=== PATIENT | female | born 1970 | race Caucasian/White ===

== ENCOUNTER 2017-07-14 13:03 | Observation (INO) | payer OTHER, SELFPAY ==
[2017-07-14] VITALS (7 sets, daily range): BP systolic 115–136; BP diastolic 82–94; PULSE 81–100; RESP 16–18; TEMP 36.6–36.8; O2SAT 97–100; BMI 28.1; BMI 27.9
--- NOTE | 2017-07-14 15:07 | EKG12_ITS ---
Test Reason : SOB Blood Pressure : / mmHG Vent. Rate : 081 BPM Atrial Rate : 081 BPM P-R Int : 150 ms QRS Dur : 080 ms QT Int : 376 ms P-R-T Axes : 058 049 046 degrees QTc Int : 436 ms Normal sinus rhythm Normal ECG Confirmed by JAMAR BANKS MD ([id number]), supervising editor news reel SUGAR PELAEZ ([id number]) on 07/17/2017 1:59:32 PM Referred By: CONSUELO Confirmed By:JAMAR BANKS MD
--- NOTE | 2017-07-14 15:10 | RAD_ITS ---
STUDY: X-RAY CHEST REASON FOR EXAM: Female, 47 years old. Chest pain. TECHNIQUE: Single AP portable view of the chest. COMPARISON: None. FINDINGS: Telemetry wires overlie the chest. The lungs are clear and expanded. There is no demonstrated pleural abnormality. Normal size heart. Normal mediastinum and kelly. Normal visualized pulmonary arteries. Normal visualized aortic arch and descending thoracic aorta. Normal visualized thoracic spine. Normal visualized ribs, clavicles, and shoulders. There is no demonstrated abnormality of the visualized soft tissue structures of the upper abdomen. RAD/Chest 1 View (Portable) IMPRESSION: Normal x-ray examination of the chest. Electronically Signed: Lalito Greer DO at 15:29 EDT Tel [phone], Service support ,
--- NOTE | 2017-07-14 15:11 | NURSING ---
NO OLD EKGS
--- NOTE | 2017-07-14 15:12 | ED.DCSUM_ITS ---
- ER Visit Summary Date of Service: 07/14/17 Chief Complaint: Sick History of Present Illness: The patient is a 47 F who has been feeling unwell for about 3 weeks. She called her PCP who could not see her and she was referred to urgent care. Urgent care referred her to this emergency department. The patient has had cold symptoms which have progressed into a dry cough, tiredness, and dizziness. She has occasionally have some chest pressure. Worse with ambulating. No history of heart or lung disease. No history of PE or DVT. No fevers or sputum currently. Physical Examination: Afebrile and vital signs unremarkable except for a heart rate of 100. The patient is sitting comfortably in no acute distress. Skin appears normal. HEENT exam unremarkable. Heart regular. Lungs clear. Calf soft and supple. Test Results: We will check EKG, labs, chest x-ray. Emergency Department Course and Treatment: Patient was placed on a monitor. She declined pain medication. CBC and BMP unremarkable. Troponin normal. D-dimer was performed because the patient was slightly tachycardic. This was slightly elevated. CT was ordered. EKG showed sinus rhythm at a rate of 81. Chest x-ray was unremarkable. Patient underwent CTA. Initial read was negative. The technicians thought they saw a small segmental PE. The radiologist reviewed the CT and did identify a small PE in the right lower lobe. Patient has remained hemodynamically stable. I did consider outpatient therapy , but because she is having some chest pain and dizziness, I did feel it was appropriate to observe her at least while she initiates treatment. She has no risks for bleeding. She was treated with a dose of Lovenox in the ED. I spoke with the hospitalist who will admit. Treatment Plan: Above Disposition: Admission Impression: 1. Pulmonary embolism This note was generated with [employer] dictation software. It may contain incorrect words, spelling, and punctuation that were not noted in review of the chart prior to signing ED Disposition - Plan for ED Patient: Chief Complaint: Shortness of Breath Referrals: Ben Lott MD [Primary Care Provider] -
[2017-07-14] MEDS: 0.9% Normal Saline 1,000 ML 1000 ML IV (15:21)
[2017-07-14 15:28] LABS: Absolute Lymphocyte Count 1.58 X10^3/ul (0.83-4.51); Absolute Neutrophil Count 6.3 X10^3/uL (2.0-7.7); Basophil# 0.03 X10^3/uL; Basophil% 0.4 % (0-1); Eosinophil# 0.11 X10^3/uL; Eosinophils% 1.3 % (0-5); Hemoglobin 13.4 g/dl (12.0-15.0); Lymphocyte # 1.58 X10^3/ul (4.0); Lymphocyte % 18.5 % (19-41); Mean Corp Hgb Conc 34.4 g/gl (32-36); Mean Corpuscular Hgb 31.3 pg (27.0-32.0); Mean Corpuscular Volume 91.1 fL (81-99); Mean Platelet Vol. 9.3 fl (6.2-12.0); Monocyte# 0.49 X10^3/uL; Monocyte% 5.7 % (0-10); Neutrophil # 6.31 X10^3/uL (2.7-7.7); POSITIVE COUNT NO; POSITIVE DIFFERENTIAL NO; POSITIVE MORPHOLOGY NO; Platelet Count 229 K/mm3 (150-450); RBC Distribution Width CV 12.8 % (11.6-14.6); RBC Distribution Width SD 42.3 fl (35.1-43.9); Red Blood Count 4.28 M/mm3 (4.2-5.4); White Blood Count 8.5 K/mm3 (4.4-11.0)
[2017-07-14 15:46] LABS: Anion Gap 7 (5-15); BUN 11 mg/dL (7-18); BUN/Creat Ratio 17.5 RATIO (10-20); Calcium,Total 8.4 mg/dL (8.5-10.1); Chloride 104 mmol/L (98-107); Creatinine, Serum 0.63 mg/dL (0.55-1.02); EST Glomerular Filtration Rate 109 mL/min (>60); Est Glom Filt Rate - Afr Amer 132 mL/min (>60); Estimated Creatinine Clearance 101.47 ml/min; Glucose 92 mg/dL (74-106); Potassium 3.9 mmol/L (3.5-5.1); Sodium Level 140 mmol/L (136-145)
[2017-07-14 15:49] LABS: D-Dimer Quantitative (DVT/PE) 0.52 FEU/ug/m (0.27-0.49)
--- NOTE | 2017-07-14 15:50 | CT_ITS ---
STUDY: CTA CHEST REASON FOR EXAM: Female, 47 years old. Dizziness. Shortness of breath. RADIATION DOSAGE (If Supplied By Facility): CTDIvol = ( 9.68 ) mGy, DLP = ( 431.66 ) mGycm TECHNIQUE: The examination was performed with the intravenous administration of 75ml ml of Isovue 370 contrast material. Post-processing of the angiographic images was performed, with multiplanar reformation and 3D reconstruction. Individualized dose optimization techniques were used for this CT. COMPARISON: July 14, 2017. FINDINGS: Normal enhancement of the main pulmonary artery and right and left pulmonary arteries. Normal enhancement of the bilateral peripheral pulmonary arteries. There is no demonstrated pulmonary embolism. Normal thoracic aorta and visualized great vessels. There is no demonstrated aortic dissection. Normal heart and pericardium. Normal mediastinum. Normal hilar regions. Normal visualized trachea and bronchi. The lungs are well expanded. Normal pulmonary parenchyma. Normal pleura. Normal chest wall structures. Normal osseous structures. Small hiatal hernia. The abdomen is otherwise unremarkable. There is evidence of cholecystectomy. CT/CTA Chest W/WO Contrast IMPRESSION: 1. Normal CTA chest examination, without a demonstrated pulmonary embolism or arterial dissection. 2. Small hiatal hernia. Electronically Signed: Lalito Greer DO at 16:36 EDT Tel [phone], Service support ,
[2017-07-14] MEDS: Enoxaparin 80 MG/0.8 ML Syringe SC (18:03)
--- NOTE | 2017-07-14 20:35 | HP.PCM_ITS ---
Problem List (1) Acute segmental right lower lobe PE Status: Acute (2) Flu-like symptoms Status: Acute History of Present Illness Date of Admission: 07/14/17 Chief Complaint: Flulike symptoms for 3 weeks The patient is a 47 year old F with no significant past medical history was sent to ER from urgent care for cough, dizziness, lightheadedness and generalized not feeling well for 3 weeks. Patient complain of dry cough and tiredness. Patient also said she felt chest pressure over midsternal area intermittently, someone sitting on the chest; unrelated to work associated with dizziness. Initially, patient went to PCP from where she was sent to urgent care where she was found tachycardic and then sent to ER. In the ED, d-dimer was positive and therefore CT PA was done which reported as small nonobstructing pulmonary emboli in peripheral vessels to lateral basal segment of right lower lobe. Patient does not have history of DVT or PE and no family history of hypercoagulable disorder in first-degree immediate family members. Patient was given Lovenox in ER and further admitted. [] Past Medical History Allergies codeine Adverse Reaction (Verified 07/14/17 13:08) Unknown Home Medications: Ambulatory Orders Medication Instructions Recorded NK [NK] 07/14/17 Smoking Status: Former smoker Tobacco Use: Cigarettes - *Family History Paternal History Items: No pertinent history Review of Systems Constitutional: Denies: Chills, Fever, Weight Change HEENT: Denies: Head Aches, Sinus Congestion, Sinus Drainage Cardiovascular: Reports: Chest Pain. Denies: Palpitations Respiratory: Reports: Cough. Denies: Shortness of breath at rest, Sputum production Gastrointestinal: Denies: Abdominal Pain, Nausea, Vomiting Genitourinary: Denies: Dysuria Musculoskeletal: Denies: Joint Pain, Joint Tenderness Skin: Denies: Rash, Wounds Neurological: Denies: Numbness, Tingling, Focal weakness Psychiatric: Denies: Anxiety, Depression, Homicidal Ideations, Suicidal Ideations Hematologic/ Lymphatic: Denies: Easy Bruising, Easy Bleeding VTE Information - Inpt Only VTE Present on Admission: Yes VTE Mechan Device Prophylaxis: SCD's VTE Pharm Prophylaxis ordered?: No Reason prophylaxis not ordered:: Procedure Not Indicated - On therapeutic Lovenox Patient Problems: Active and Suspected Problems (This Medical Record has been edited. Action required.) Acute segmental right lower lobe PE (Acute) Flu-like symptoms (Acute) - Physical Exam General: Alert, Oriented x3, Cooperative HEENT: Atraumatic, PERRLA, EOMI, Normocephalic Neck: Supple, No JVD, Negative Carotid Bruits Lungs: Clear to auscultation, Normal air movement, No rhonchi, No wheeze, No rales Cardiovascular: Regular rate, Regular Rhythm, Normal S1, Normal S2, No murmurs Abdomen: Bowel Sounds Present, Soft, Non Tender, Non-Distended Extremities: No edema, Capillary Refill Less than 3 Seconds Skin: No rashes, No breakdown Musculoskeletal: No Tenderness to Palpation of Joints or Extremities Neurological: Cranial nerves II-XII grossly intact Psych/Mental Status: Normal Affect, Appropriate Vital Signs Temp Pulse Resp BP Pulse Ox 98.3 F 85 18 131/94 H 99 07/14/17 19:11 07/14/17 19:11 07/14/17 19:11 07/14/17 19:11 07/14/17 19:11 Oxygen Delivery Method Room Air Weight: 167 lb 15.876 oz Body Mass Index (BMI) 27.9 Assessment/Plan Active and Suspected Problems (This Medical Record has been edited. Action required.) Acute segmental right lower lobe PE (Acute) Flu-like symptoms (Acute) The patient is a 47 year old F with no significant past medical history was sent to ER from urgent care for cough, dizziness, lightheadedness and generalized not feeling well for 3 weeks. Patient complain of dry cough and tiredness. Patient also said she felt chest pressure over midsternal area intermittently, someone sitting on the chest; unrelated to work associated with dizziness. In the ED, d-dimer was positive and therefore CT PA was done which reported as small nonobstructing pulmonary emboli in peripheral vessels to lateral basal segment of right lower lobe. Patient does not have history of DVT or PE and no family history of hypercoagulable disorder in first-degree immediate family members. Patient was given Lovenox in ER and further admitted. 1. Acute right lower lobe segmental/subsegmental pulmonary embolism; unprovoked : Patient is being admitted in PCU. Serial cardiac enzymes. BNP ordered. 2D echo tomorrow a.m. On Lovenox therapeutic dose. Patient need hypercoagulable workup. I did not order Antithrombin III as patient already received Lovenox. 2. Atypical chest pressure, possible due to P: Serial troponin enzymes. 2D echo tomorrow a.m. 3. Flulike symptoms: Flu test ordered. On symptomatic treatment. DVT prophylaxis: Already on Lovenox. Code Visit OBSV E&M: 87639 Initial observation care L3
[2017-07-14] MEDS: Acetaminophen 325 MG Tablet 650 MG PO (20:45)
[2017-07-14] MEDS: 0.9% Normal Saline 1,000 ML 100 ML IV (20:46)
[2017-07-14 22:30] LABS: BNP,B-Type NATRIURETIC PEPTIDE 11.1 pg/mL (0-100)
[2017-07-15] VITALS (7 sets, daily range): BP systolic 94–111; BP diastolic 58–78; PULSE 75–84; RESP 16; TEMP 36.6–36.9; O2SAT 94–96
[2017-07-15 02:55] LABS: Hematocrit 35.3 % (37-47); Hemoglobin 12.2 g/dl (12.0-15.0); Mean Corp Hgb Conc 34.6 g/gl (32-36); Mean Corpuscular Hgb 31.4 pg (27.0-32.0); Mean Corpuscular Volume 90.7 fL (81-99); Mean Platelet Vol. 9.3 fl (6.2-12.0); Platelet Count 203 K/mm3 (150-450); RBC Distribution Width CV 12.8 % (11.6-14.6); RBC Distribution Width SD 41.7 fl (35.1-43.9); Red Blood Count 3.89 M/mm3 (4.2-5.4); White Blood Count 6.9 K/mm3 (4.4-11.0)
[2017-07-15 03:00] LABS: Scan Indicated on CBC? Y/N NO
--- NOTE | 2017-07-15 05:55 | ECHOD_ITS ---
Reason For Study: PE Procedure This was a 2D Doppler, Color Flow transthoracic echocardiogram. Exam performed portable in patient room. Left Ventricle Normal size and thickness. The estimated ejection fraction is 65 %. Stage 1 diastolic dysfunction. No regional wall motion abnormalities noted. Right Ventricle Normal size and thickness. Normal systolic function. Atria Normal left atrium. Normal right atrium. Normal atrial septum. Mitral Valve The mitral valve is structurally normal. No prolapse or stenosis seen. Trivial mitral valve insufficiency. Tricuspid Valve Normal tricuspid valve. Trivial tricuspid valve insufficiency. Right ventricular systolic pressure estimated to be 26 mmHg. Aortic Valve Normal aortic valve. Trisinus/trileaflet aortic valve. Pulmonic Valve Normal pulmonic valve. Trivial pulmonic valve insufficiency. Great Vessels Normal aortic root. Normal arch. Normal inferior vena cava. Inferior vena cava collapse with sniff. Pericardium/Pleural No pericardial effusion. MMode/2D Measurements & Calculations LVIDd: 4.0 cm IVSd: 0.83 cm Ao root diam: 2.3 cm LVIDs: 2.9 cm LVPWd: 0.75 cm LA dimension: 3.1 cm RVDd: 2.7 cm FS: 27.8 % LAV(MOD-bp): 24.2 ml EDV(MOD-sp4): 55.4 ml SV(MOD-sp4): 32.4 ml LAV(MOD-bp) Indexed: 13.2 ml/m2 ESV(MOD-sp4): 23.0 ml LAV(MOD-sp2): 25.7 ml EF(MOD-sp4): 58.4 % LAV(MOD-sp4): 18.4 ml LA A4 area: 10.5 cm2 RA A4 area: 9.3 cm2 Doppler Measurements & Calculations MV E max gideon: 77.5 cm/sec Lat Peak E' Gideon: 16.2 cm/sec Med Peak E' Gideon: 11.2 cm/sec MV A max gideon: 72.2 cm/sec E/E' lat: 4.8 E/E' med: 6.9 MV E/A: 1.1 Ao V2 max: 114.4 cm/sec LV V1 max: 90.1 cm/sec PA V2 max: 87.5 cm/sec Ao max P.2 mmHg LV V1 max P.3 mmHg Ao V2 mean: 87.9 cm/sec Ao mean P.3 mmHg Ao V2 VTI: 25.5 cm TR max gideon: 220.7 cm/sec TR max P.5 mmHg Interpretation Summary The estimated ejection fraction is 65 %. Stage 1 diastolic dysfunction. Trivial mitral valve insufficiency. Trivial tricuspid valve insufficiency. Right ventricular systolic pressure estimated to be 26 mmHg. There is no comparison study available. Ordering Physician: Munir Cottrell Referring Physician: MD Ben Lott Performed By: Kimberly Roberts, ELISEO, RVT
[2017-07-15] MEDS: 0.9% Normal Saline 1,000 ML 100 ML IV (05:56)
[2017-07-15] MEDS: Enoxaparin 80 MG/0.8 ML Syringe SC (05:56)
--- NOTE | 2017-07-15 10:18 | NURSING ---
Rikki handout given to pt and discussed
--- NOTE | 2017-07-15 11:04 | CASEMGMT ---
Per Dr. Martinez, pt to be sent home on [facility] at discharge. Script e-scribed to [facility]. Call to [facility] and per tech, the pt's co-pay is $50.00/month. Pt updated at this time and given $10 co-pay card with instructions at this time, voices understanding. Pt voices no further questions/concerns/needs at this time. SStwilfred MARTINEZ CM
--- NOTE | 2017-07-15 11:06 | PCM.DC ---
- Discharge Diagnoses Current Active Problems: Current Active and Chronic Problems (This Medical Record has been edited. Action required.) Acute segmental right lower lobe PE (Acute) Flu-like symptoms (Acute) You will use the following diet at home:: No restrictions, Regular Your food should be the consistency of: Regular Discharge Activity: Return to Normal Activity Weight Bearing Status: Full weight bearing Call your doctor if you observe: Fever of 101 or Higher, Shortness of breath, Dizziness, Fainting spells, Chest pain, Increased palpitations (irregular heartbeat), Uncontrolled pain Instructions: Discharge Instructions for Pulmonary Embolism Allergies/Adverse Reactions: Allergies codeine Adverse Reaction (Verified 07/14/17 13:08) Unknown Medications to take at Discharge Apixaban [Eliquis] 5 mg PO BID #90 tab 07/15/17 The following prescriptions were given: Apixaban [Eliquis] 5 mg PO BID #90 tab Primary Care Physician: Ben Lott MD [Primary Care Provider] - Please follow up with your Primary Care Physician in: 1-2 weeks.
--- NOTE | 2017-07-15 17:54 | DS.PCM_ITS ---
Discharge Date and Diagnosis Date of Admission: 07/14/17 Date of Discharge: 07/15/17 - Primary Discharge Diagnosis #1 small nonobstructing right lower lobe pulmonary emboli. #2 rhinovirus URTI. Hospital Course and Treatment Imaging Results: Clinical Impression(s) from Imaging Studies Chest X-Ray 07/14/17 15:10 IMPRESSION: Normal x-ray examination of the chest. Electronically Signed: Lalito Greer DO at 15:29 EDT Tel [phone], Service support , Chest CTA 07/14/17 15:50 IMPRESSION: 1. Normal CTA chest examination, without a demonstrated pulmonary embolism or arterial dissection. 2. Small hiatal hernia. Electronically Signed: Lalito Greer DO at 16:36 EDT Tel [phone], Service support , ADDENDUM: 07/14/17 6405 Operations: None Procedures: 2-D Echocardiogram Summary of Care Provided: Patient seen and examined on the day of discharge and appeared to be stable to be discharged home. Symptoms improved, she states week this disease. Still having mild cough without sputum production. Denied fever chills. Denied chest pain or shortness of breath. Vital signs are stable. - Physical Exam General: Alert, Oriented x3, Cooperative, No apparent distress. HEENT: Atraumatic, PERRLA, EOMI. Neck: Supple, No JVD, Negative Carotid Bruits, Trachea Midline, Thyroid Normal. Lungs: Clear to auscultation, Normal air movement, No rhonchi, No wheeze, No rales. Cardiovascular: Regular rate, Regular Rhythm, Normal S1, Normal S2, PMI Normal. Abdomen: Bowel Sounds Present, Soft, Non Tender, Non-Distended, No Hepato- splenomegaly. Extremities: No clubbing, No cyanosis, No edema Skin: No rashes, No breakdown Neurological: Neuro grossly intact Vital Signs are stable. Hospital course: The patient is a 47 year old F presented to the emergency room because of flulike symptoms with weakness, cough, dizziness and malaise. She was found to have elevated d-dimer for which CTA chest done and revealed right lower lobe small nonobstructing pulmonary emboli. Respiratory panel for viruses was positive for rhinovirus. Chest x-ray showed no acute findings. Her routine blood work was unremarkable. Troponin negative ?3. She was treated with Lovenox therapeutic dose twice daily for acute PE. She was treated with IV fluids and symptomatic treatment for the upper respiratory tract infection symptoms. Assessment stable and respiratory status remains stable. Hypercoagulable workup sent and was pending at the time of discharge. Patient discharged home in a stable medical condition, discharged on Eliquis for total of 3 months for acute PE, hypercoagulability workup is pending, recommended follow-up with PCP in 1-2 weeks. Discharge Activity: Return to Normal Activity Weight Bearing Status: Full weight bearing Call your doctor if you observe: Fever of 101 or Higher, Shortness of breath, Dizziness, Fainting spells, Chest pain, Increased palpitations (irregular heartbeat), Uncontrolled pain Home Medications: Medications to take at Discharge Apixaban [Eliquis] 5 mg PO BID #90 tab 07/15/17 Following Prescrptions Were Given to Patient: Apixaban [Eliquis] 5 mg PO BID #90 tab Primary Care Physician: Ben Lott MD [Primary Care Provider] - Please follow up with your Primary Care Physician in: 1-2 weeks. Please Follow Up With: Ben Lott MD Patient Instructions: Discharge Instructions for Pulmonary Embolism Disposition: Home Minutes spent on discharge:: 26 Patient Condition:: Stable Medical Necessity - Tobacco Use Smoking Status: Former smoker Tobacco Use: Cigarettes Meaningful Use Info Meaningful Use Diagnoses (Choose all that apply): None applicable Code Visit OBSV E&M: 12977 Observation care discharge
[2017-07-21 12:50] LABS: Anti-Cardiolipin Ab, IgG, Qn < 9 GPL U/mL (0-14); Anti-Cardiolipin Ab, IgM, Qn 27 MPL U/mL (0-12); Beta-2-Glycoprotein I IgA <9 (0-25); Beta-2-Glycoprotein I IgG <9 (0-20); Beta-2-Glycoprotein I IgM <9 (0-32); Protein C, Functional 103 % (73-180)
== END 2017-07-15 11:07 | disposition home or self-care (01) ==
LOC: ED 18:41 → PCU 19:07
PROVIDERS: Admitting Provider Internal Medicine; Emergency Provider Emergency Medicine; Family Provider Family Medicine; PCP Family Medicine; Visit Provider Hospitalist
DX: I26.99 Other pulmonary embolism without acute cor pulmonale (principal); J06.9 Acute upper respiratory infection, unspecified; B97.89 Other viral agents as the cause of diseases classified elsewhere; Z87.891 Personal history of nicotine dependence; R06.02 Shortness of breath
CPT/HCPCS: 36415; 71045; 71275; 80048; 81240; 81241; 83880; 84484; 85025; 85027; 85303; 85379; 86146; 86147; 87633; 93005; 93306; 96360; 96361; 96372; 99218; 99285; J7030; Q9967; A4216; G0378

== ENCOUNTER → 2017-08-22 08:47 | Outpatient (CLI) | payer OTHER, SELFPAY ==
--- NOTE | 2017-08-22 08:50 | CT_ITS ---
STUDY: CT PELVIS WITHOUT CONTRAST REASON FOR EXAM: Female, 47 years old. Pain superior iliac crest x4-5 years RADIATION DOSAGE (If Supplied By Facility): CTDIvol = ( 28.81 ) mGy, DLP = ( 884.78 ) mGycm TECHNIQUE: Transaxial imaging of the pelvis was performed with oral contrast, and without intravenous administration of contrast material. Individualized dose optimization techniques were used for this CT. COMPARISON: None. FINDINGS: Normal urinary bladder. Normal visualized small intestine. Normal visualized colon. There is no pelvic fluid. There is no pelvic mass lesion or lymphadenopathy. Normal visualized pelvic arteries. Normal abdominal wall. There is a 7 mm length spur of the lateral right iliac crest. There is a linear lucency with sclerosis of the posterior right acetabular rim best seen on images 26 through 28 series 401. This may represent an old injury. CT/Extremity Lower without Contra IMPRESSION: 7 mm in length spur of the lateral right iliac crest. Linear lucency with sclerosis of the posterior right acetabular rim which may represent old injury. Electronically Signed: Simon Lala MD at 20:09 EDT , Service support ,
== END ==
PROVIDERS: Family Provider Internal Medicine; PCP Internal Medicine; Visit Provider Internal Medicine
DX: M25.551 Pain in right hip (principal)
CPT/HCPCS: 73700

== ENCOUNTER → 2017-08-25 07:10 | Outpatient (CLI) | payer OTHER, SELFPAY ==
--- NOTE | 2017-08-25 07:27 | BI_ITS ---
MAMMOGRAPHY - BILATERAL SCREENING REASON FOR EXAM: Female, 47 years old. Routine annual screening examination. PERTINENT HISTORY: Grandmother with breast cancer. Aunt with breast cancer. TECHNIQUE: Digital bilateral breast marielena (3D mammographic acquisition) in the CC and MLO projections. 2-D mediolateral oblique (MLO) and craniocaudad (CC) views of both breasts were obtained. CAD: Full Field Digital Mammography with Computer Added Detection was performed. COMPARISON: Comparison is made with prior outside examination dated June 30, 2016. FINDINGS: Breast Composition: The breasts are heterogeneously dense, which may obscure small masses. There are no dominant masses or suspicious calcifications. No other significant abnormalities are identified. There has been no significant change since the prior study. BI/SCREENING MAMM (CAD), BILAT IMPRESSION: Stable bilateral screening mammogram. Yearly follow-up mammogram recommended. (A) ASSESSMENT CATEGORY: BIRADS Category 1: Negative. A letter regarding these results will be sent to the patient by the facility within 30 days. Approximately 10% of breast cancers are not detected by mammography. A normal mammogram should not delay biopsy of a clinically suspicious abnormality. [id number] Electronically Signed: Chidi Rosenbaum MD at 9:57 EDT Tel [phone], Service support ,
== END ==
PROVIDERS: Family Provider Internal Medicine; PCP Internal Medicine; Visit Provider Family Medicine
DX: Z12.31 Encounter for screening mammogram for malignant neoplasm of breast (principal)
CPT/HCPCS: 77063; 77067

== ENCOUNTER → 2017-10-02 08:42 | Outpatient (CLI) | payer OTHER, SELFPAY ==
--- NOTE | 2017-10-02 08:44 | RAD_ITS ---
STUDY: X-RAY - PELVIS AND RIGHT HIP REASON FOR EXAM: Right hip pain for one year, no specific injury. TECHNIQUE: Radiological exam, hip, unilateral, with pelvis when performed; 2 or 3 views. COMPARISON: None. FINDINGS: Normal visualized soft tissue structures. There is mild enthesopathy of the right iliac wing. Normal bilateral superior and inferior pubic rami. Normal pubic symphysis. Normal bilateral ischial tuberosities. Normal visualized femoral head. Normal acetabulum. Normal hip joint. RAD/HIP, UNI W/ Pelvis 2-3 Views IMPRESSION: Mild enthesopathy of the right iliac wing. Otherwise, normal x-ray examination of the pelvis and right hip. Electronically Signed: Masood Syed MD at 15:06 EDT Tel , Service support ,
== END ==
PROVIDERS: Family Provider Internal Medicine; PCP Internal Medicine; Visit Provider Orthopaedic Surgery
DX: M25.551 Pain in right hip (principal)
CPT/HCPCS: 73502

== ENCOUNTER → 2017-10-07 10:51 | Outpatient (CLI) | payer OTHER, SELFPAY ==
[2017-10-07 12:49] LABS: Anion Gap 7 (5-15); BUN 5 mg/dL (7-18); BUN/Creat Ratio 6.4 RATIO (10-20); Calcium,Total 8.5 mg/dL (8.5-10.1); Chloride 106 mmol/L (98-107); Creatinine, Serum 0.78 mg/dL (0.55-1.02); EST Glomerular Filtration Rate 84 mL/min (>60); Est Glom Filt Rate - Afr Amer 102 mL/min (>60); Glucose 91 mg/dL (74-106); Magnesium 2.2 mg/dL (1.6-2.6); Potassium 3.9 mmol/L (3.5-5.1); Sodium Level 142 mmol/L (136-145); T4 Total, Thyroxin 10.4 ug/dL (4.8-13.9); Thyroid Stim Hormone (TSH) 1.04 uIU/mL (0.358-3.74)
== END ==
PROVIDERS: Family Provider Internal Medicine; PCP Internal Medicine; Visit Provider Internal Medicine Gastroenterology
DX: K59.00 Constipation, unspecified (principal); R10.9 Unspecified abdominal pain
CPT/HCPCS: 36415; 80048; 83735; 84436; 84443

== ENCOUNTER 2017-10-26 16:16 | Emergency (ER) | payer OTHER, SELFPAY ==
[2017-10-26 16:17] VITALS: BP 116/86; PULSE 88; RESP 16; TEMP 36.9; O2SAT 97; BMI 28.0
[2017-10-26 16:54] VITALS: O2SAT 99
[2017-10-26] MEDS: 0.9% Normal Saline 1,000 ML 1000 ML IV (16:58)
[2017-10-26 17:14] LABS: Absolute Lymphocyte Count 1.71 X10^3/ul (0.83-4.51); Absolute Neutrophil Count 3.4 X10^3/uL (2.0-7.7); Basophil# 0.02 X10^3/uL; Basophil% 0.4 % (0-1); Eosinophil# 0.11 X10^3/uL; Eosinophils% 1.9 % (0-5); Hematocrit 41.7 % (37-47); Lymphocyte # 1.71 X10^3/ul (4.0); Lymphocyte % 30.2 % (19-41); Mean Corp Hgb Conc 33.6 g/gl (32-36); Mean Corpuscular Volume 92.3 fL (81-99); Mean Platelet Vol. 9.8 fl (6.2-12.0); Monocyte# 0.45 X10^3/uL; Monocyte% 7.9 % (0-10); Neutrophil # 3.38 X10^3/uL (2.7-7.7); Neutrophil % 59.6 % (47-70); Platelet Count 209 K/mm3 (150-450); RBC Distribution Width CV 12.9 % (11.6-14.6); RBC Distribution Width SD 43.3 fl (35.1-43.9); Red Blood Count 4.52 M/mm3 (4.2-5.4); White Blood Count 5.7 K/mm3 (4.4-11.0)
[2017-10-26 17:15] LABS: POSITIVE COUNT NO; POSITIVE DIFFERENTIAL NO; POSITIVE MORPHOLOGY NO
[2017-10-26 17:28] LABS: Erythrocyte Sedimentation Rate 4 mm/hr (0-20)
[2017-10-26 17:30] LABS: Anion Gap 11 (5-15); BUN 9 mg/dL (7-18); BUN/Creat Ratio 10.6 RATIO (10-20); Calcium,Total 8.7 mg/dL (8.5-10.1); Chloride 107 mmol/L (98-107); Creatinine, Serum 0.85 mg/dL (0.55-1.02); EST Glomerular Filtration Rate 77 mL/min (>60); Est Glom Filt Rate - Afr Amer 93 mL/min (>60); Estimated Creatinine Clearance 75.21 ml/min; Glucose 94 mg/dL (74-106); Potassium 3.5 mmol/L (3.5-5.1); Sodium Level 145 mmol/L (136-145)
--- NOTE | 2017-10-26 18:07 | ED.VISSUMM ---
- ER Visit Summary Date of Service: 10/26/17 Chief Complaint: Chest pain and shortness of breath History of Present Illness: The patient is a [address] Davila. She had a PE 2 months ago and was found to have factor V Leiden. She is on Eliquis for this. She reports that she had a colonoscopy last week and held her doses of Eliquis 6, 5, and the morning dose of 4 days ago. States that she begin Eliquis after that. Patient reports that she has a left upper chest pain that began 1 week ago. It is a constant pain is 8 out of 10 at worst and 2 out of 10 currently. It is increased with deep breaths or laying flat. Is unchanged with exertion. She has mild shortness of breath at rest and moderate shortness of breath with exertion. She denies any fever, chills, cough, ankle swelling or calf pain. Physical Examination: Vitals: Stable. Afebrile. General: Well-nourished and well-developed. Head: Normocephalic atraumatic. Neck: Supple, no lymphadenopathy. No JVD. Nontender. Cardiovascular: Regular rate and rhythm. No murmurs. Respiratory: No respiratory distress. Clear to auscultation bilaterally. Abdominal: Soft, nontender, nondistended, normal bowel sounds. No guarding, rebound, or peritoneal signs. Back: Nontender. Extremities: Nontender, no edema. Skin: Normal color, no rash. Neurologic: Alert and oriented ?3. Cranial nerves II through XII are intact. Normal strength and sensation. Psych: Normal affect. Test Results: EKG is sinus at 83 with no acute changes. Troponin is negative. Chem-7 is normal. CBC is normal. Sed rate is negative. Bilateral lower extreme Dopplers are negative. Chest x-ray is normal. Emergency Department Course and Treatment: Patient refused pain medications and she is resting comfortably. I did discuss with her the possibility that she may have another PE, but she does not want to do a CTA of the chest. I feel that that is a reasonable course of action. She is already anticoagulated with Eliquis. Her vital signs are stable. She does not have a large clot in her leg that may cause her to be unstable. Treatment Plan: Patient will be discharged instructions to continue her Eliquis and follow-up with Dr. Davila in 3-5 days if not improving. Return to the emergency department for any worsening symptoms. Disposition: To home in improved and stable condition. Impression: 1. Atypical chest pain. 2. Coagulopathy on Eliquis. 3. History of pulmonary embolus. 4. History of factor V Leiden deficiency. This note was generated with [employer] dictation software. It may contain incorrect words, spelling, and punctuation that were not noted in review of the chart prior to signing ED Disposition - Plan for ED Patient: Chief Complaint: Shortness of Breath Instructions: ED Chest Pain Atypical Unkn Cause Referrals: Vijay Davila MD [Primary Care Provider] - 3-5 Days if not improving
[2017-10-26 18:15] VITALS: BP 119/82; PULSE 73; RESP 15; O2SAT 97
--- NOTE | 2017-10-26 18:16 | ED.RN ---
REVIEWED D/C INSTRUCTIONS, FOLLOW UP CARE, AND S/S THAT WOULD WARRANT A RETURN TO THE ED WITH PT. PT VERBALIZED AN UNDERSTANDING AND DENIES FURTHER QUESTIONS FOR THIS RN. PT SKIN P/W/D, RESP EVEN AND UNLABORED, PT A&O X 3, NO DISTRESS NOTED. PT AMBULATED OUT OF ED, GAIT STEADY.
== END 2017-10-26 18:17 | disposition home or self-care (01) ==
LOC: ED 16:48
PROVIDERS: Emergency Provider Emergency Medicine; Family Provider Internal Medicine; PCP Internal Medicine
DX: R07.89 Other chest pain (principal); D68.9 Coagulation defect, unspecified; Z86.711 Personal history of pulmonary embolism; D68.51 Activated protein C resistance; R11.0 Nausea; R51 Headache; R06.00 Dyspnea, unspecified; E78.00 Pure hypercholesterolemia, unspecified
CPT/HCPCS: 71045; 80048; 84484; 85025; 85652; 93005; 93970; 96360; 99284; J7030; A4216

== ENCOUNTER → 2018-02-08 14:11 | Outpatient (CLI) | payer OTHER, SELFPAY ==
[2018-01-29 09:54] VITALS: BMI 27.1
--- NOTE | 2018-02-08 14:18 | CT_ITS ---
STUDY: CT BRAIN WITH AND WITHOUT CONTRAST REASON FOR EXAM: Female, 47 years old. Headaches. The patient is on blood thinners. RADIATION DOSAGE (If Supplied By Facility): CTDIvol = ( 44.99 ) mGy, DLP = ( 1547.23 ) mGycm TECHNIQUE: Transaxial CT imaging of the brain was performed pre and post contrast administration. The examination was performed with intravenous administration of 50 ml of Isovue 370 contrast material. Individualized dose optimization techniques were used for this CT. COMPARISON: None. FINDINGS: Normal soft tissue structures. Normal calvarium. Normal size ventricles and extra-axial spaces for the patient's age. Normal white matter tracts of the cerebral hemispheres. Normal basal ganglia and thalami. Normal brainstem. Normal cerebellum. There is no intracranial hemorrhage. There are no findings of an acute ischemic infarction. Normal visualized paranasal sinuses. CT/Brain/Head W/WO Contrast IMPRESSION: Normal unenhanced and enhanced CT scan of the brain. Electronically Signed: Chidi Rosenbaum MD at 15:26 EST Tel [phone], Service support ,
== END ==
PROVIDERS: Family Provider Internal Medicine; PCP Internal Medicine; Referring Provider Internal Medicine; Visit Provider Internal Medicine
DX: R51 Headache (principal)
CPT/HCPCS: 70470; Q9967

== ENCOUNTER → 2018-08-18 | Outpatient (CLI) | payer OTHER, SELFPAY ==
[2018-05-28 08:26] VITALS: BMI 27.1
--- NOTE | 2018-08-18 10:00 | RAD_ITS ---
CLINICAL HISTORY: Female, 48 years old. Right hip pain. PROCEDURE: ARTHROGRAM - RIGHT HIP CONSENT: The procedure as well as the benefits and possible complications including infection and bleeding were explained to the patient. Informed consent was obtained. FLUOROSCOPY TIME (if supplied): (0:30) minutes/seconds. Injection Information: 10 cc of dilute Dotarem Number of images obtained: 1 TECHNIQUE: (All elements of maximal sterile barrier technique followed, including US elements as applicable) The patient was in the supine position. The overlying skin was prepped and draped in usual sterile fashion. Final clinical anesthetic application and under direct fluoroscopic guidance, a 22-gauge spinal needle was placed into the hip joint. 2 cc of Isovue-300 was injected for confirmation. Following this, 10 cc of dilute MRI contrast was injected. The patient tolerated the procedure well. RAD/Arthrogram Hip w/ MRI IMPRESSION: Successful right hip arthrogram for MRI examination. The patient tolerated the procedure well. Electronically Signed: Chidi Rosenbaum, at 13:13 EDT , Service support ,
--- NOTE | 2018-08-18 10:51 | MRI_ITS ---
STUDY: MRI RIGHT HIP ARTHROGRAM REASON FOR EXAM: Female, 48 years old. Hip pain for 5 years. TECHNIQUE: Standardized arthrographic pulse sequences were obtained in all 3 orthogonal planes. Please see dedicated arthrogram technique. Intra-articular gadolinium administration with dilute Dotarem. Approximately 10 cc of total contrast and fluid injected into the hip joint. COMPARISON: CT scan dated August 22, 2017 and radiograph dated October 02, 2017. FINDINGS: Suspected curvilinear loose body/cartilage fragment at the anterior inferior joint space adjacent to the posterior medial femoral head (coronal images 8 and 9 series 3) measuring approximately 8 mm. Labrum appears intact. Joint capsule appears intact. No bursitis. No acute fracture line. No dislocation. No acute cortical destruction. Mild articular cartilage loss at the anterior medial joint space (sagittal image 10 series 8). No acute bone marrow edema or contusion. Right hemipelvis intact. Normal rectus femoris tendon. Normal iliopsoas tendons. Normal hamstring tendon. Normal abductor tendon. Normal gluteus medius/minimus tendons. Limited visualized intraoperative abdominal/pelvic contents within normal limits. Normal neurovascular bundle. MRI/Lower Ext/Jt Only/W Contrast IMPRESSION: Labrum and joint capsule intact Suspected curvilinear loose body/cartilage fragment at the anterior inferior joint space Mild right hip articular cartilage loss Electronically Signed: Garrick Quinn DO at 15:11 EDT Tel , Service support ,
== END | disposition home or self-care (01) ==
LOC: RAD 10:10
PROVIDERS: Family Provider Internal Medicine; PCP Internal Medicine; Referring Provider Specialist; Visit Provider Specialist
DX: M25.551 Pain in right hip (principal)
CPT/HCPCS: 27093; 73722; 77002; A9575; Q9967

== ENCOUNTER → 2018-09-15 07:10 | Outpatient (CLI) | payer OTHER, SELFPAY ==
[2018-05-28 08:26] VITALS: BMI 27.1
--- NOTE | 2018-09-15 07:13 | BI_ITS ---
MAMMOGRAPHY - BILATERAL SCREENING REASON FOR EXAM: Female, 48 years old. Routine annual screening examination. PERTINENT HISTORY: Grandmother with breast cancer. Aunt with breast cancer. TECHNIQUE: Digital bilateral breast adalgisa (3D mammographic acquisition) in the CC and MLO projections. 2-D mediolateral oblique (MLO) and craniocaudad (CC) views of both breasts were obtained. CAD: Full Field Digital Mammography with Computer Added Detection was performed. COMPARISON: Comparison is made with prior study dated August 25, 2017. FINDINGS: Breast Composition: The breasts are heterogeneously dense, which may obscure small masses. There are no dominant masses or suspicious calcifications. No other significant abnormalities are identified. There has been no significant change since the prior study. BI/SCREEN MAMM (CAD) W/ADALGISA BILAT IMPRESSION: Stable bilateral screening mammogram. Yearly follow-up mammogram recommended. (A) ASSESSMENT CATEGORY: BIRADS Category 1: Negative. A letter regarding these results will be sent to the patient by the facility within 30 days. Approximately 10% of breast cancers are not detected by mammography. A normal mammogram should not delay biopsy of a clinically suspicious abnormality. [id number] Electronically Signed: Chidi Rosenbaum, at 8:48 EDT , Service support ,
== END ==
PROVIDERS: Family Provider Internal Medicine; PCP Internal Medicine; Referring Provider Internal Medicine; Visit Provider Internal Medicine
DX: Z12.31 Encounter for screening mammogram for malignant neoplasm of breast (principal)
CPT/HCPCS: 77063; 77067

== ENCOUNTER → 2018-11-26 08:31 | Outpatient (CLI) | payer OTHER, SELFPAY ==
[2018-11-26 08:01] VITALS: BMI 26.9
[2018-11-26 12:22] LABS: Absolute Lymphocyte Count 1.27 X10^3/uL (0.83-4.51); Absolute Neutrophil Count 2.7 X10^3/uL (2.0-7.7); Basophil# 0.05 X10^3/uL; Basophil% 1.1 % (0-1); Eosinophil# 0.17 X10^3/uL; Eosinophils% 3.7 % (0-5); Hematocrit 40.6 % (37-47); Hemoglobin 13.7 g/dL (12.0-15.0); Lymphocyte # 1.27 X10^3/ul (4.0); Lymphocyte % 27.7 % (19-41); Mean Corp Hgb Conc 33.7 g/dL (32-36); Mean Corpuscular Hgb 31.4 pg (27.0-32.0); Mean Corpuscular Volume 92.9 fL (81-99); Mean Platelet Vol. 10.4 fl (6.2-12.0); Monocyte# 0.38 X10^3/uL; Monocyte% 8.3 % (0-10); NRBC Flagged by Analyzer 0 % (0-5); Neutrophil # 2.71 X10^3/uL (2.7-7.7); Platelet Count 219 K/mm3 (150-450); RBC Distribution Width CV 12.4 % (11.6-14.6); RBC Distribution Width SD 42.6 fl (35.1-43.9); Red Blood Count 4.37 M/mm3 (4.2-5.4); White Blood Count 4.6 K/mm3 (4.4-11.0)
[2018-11-26 13:00] LABS: ALB/GLOB Ratio 1.2 RATIO (0.9-2.4); AST(SGOT) 23 U/L (15-37); Alanine Aminotransfer ALT/SGPT 30 U/L (13-56); Albumin, Serum 3.7 g/dL (3.2-5.0); Alkaline Phosphatase 61 U/L (45-117); Anion Gap 8 (5-15); BUN 4 mg/dL (7-18); BUN/Creat Ratio 5.7 RATIO (10-20); Calcium,Total 8.3 mg/dL (8.5-10.1); Chloride 108 mmol/L (98-107); EST Glomerular Filtration Rate 95 mL/min (>60); Est Glom Filt Rate - Afr Amer 115 mL/min (>60); Globulin 3.2 g/dL (2.2-4.2); Glucose 88 mg/dL (74-106); Potassium 4.1 mmol/L (3.5-5.1); Protein, Total 6.9 g/dL (6.4-8.2); Sodium Level 143 mmol/L (136-145); T4 Free Direct 0.97 ng/dL (0.76-1.46); Thyroid Stim Hormone (TSH) 1.16 uIU/mL (0.358-3.74)
== END ==
PROVIDERS: Family Provider Internal Medicine; PCP Internal Medicine; Visit Provider Internal Medicine
DX: Z13.29 Encounter for screening for other suspected endocrine disorder (principal); K59.09 Other constipation
CPT/HCPCS: 36415; 80053; 84439; 84443; 85025

== ENCOUNTER → 2019-03-15 13:32 | Outpatient (CLI) | payer OTHER, SELFPAY ==
[2019-02-09 09:00] VITALS: BMI 26.9
--- NOTE | 2019-03-15 13:38 | VDLE_ITS ---
Reason For Study: Other articular cartilage disorders right hip RIGHT LEFT GSV is normal. GSV is normal. CFV is compressible, spontaneous, phasic, CFV is compressible, spontaneous, phasic, competent and demonstrates normal competent, and demonstrates normal augmentation. augmentation. FV is compressible, spontaneous, phasic, FV is compressible, spontaneous, phasic, competent and demonstrates normal competent and demonstrates normal augmentation. augmentation. POP V is compressible, spontaneous, phasic, POP V is compressible, spontaneous, phasic, competent and demonstrates normal competent and demonstrates normal augmentation. augmentation. T/P Trunk is compressible. T/P Trunk is compressible. PTV is compressible. PTV is compressible. RT PerV is compressible. LT PerV is compressible. Procedure Exam performed in department. A preliminary report was called and/or faxed to [facility]. Interpretation Summary Deep veins of the lower extremities are bilaterally patent and compressible segmentally. There is no evidence of deep vein thrombosis on either side. Valvular competence appears intact within the proximal deep venous systems bilaterally. The great saphenous veins appear bilaterally patent and compressible segmentally. Ordering Physician: Shaquille Ty Referring Physician: Vijay Davila Performed By: Rafaela Goldman RVT
== END ==
PROVIDERS: Family Provider Internal Medicine; PCP Internal Medicine; Referring Provider Orthopaedic Surgery Sports Medicine; Visit Provider Orthopaedic Surgery Sports Medicine
DX: M24.151 Other articular cartilage disorders, right hip (principal)
CPT/HCPCS: 93970

== ENCOUNTER → 2019-09-19 | Outpatient (CLI) | payer OTHER, SELFPAY ==
[2019-04-29 08:27] VITALS: BMI 25.4
--- NOTE | 2019-09-19 15:22 | BI_ITS ---
MAMMOGRAPHY - BILATERAL SCREENING 3-D TOMOSYNTHESIS REASON FOR EXAM: Female, 49 years old. Routine screening PERTINENT HISTORY: FAM HX PAT AUNT AGE 50, PAT GMA AGE 70 -- NO SX. TECHNIQUE: 2-D mammograms and 3-D Tomosynthesis of the breast (s) were performed. CAD was performed. COMPARISON: 09/15/2018 FINDINGS: The breast composition is heterogeneously dense that can obscure small breast masses. Scattered benign calcifications are seen. No dense spiculated masses or suspicious microcalcifications are identified. No architectural distortion is identified. There is no skin thickening or retraction. There has been no significant change since the prior study. BI/SCREEN MAMM (CAD) W/ADALGISA BILAT IMPRESSION: No mammographic signs of malignancy. Routine yearly mammograms recommended. ASSESSMENT CATEGORY: BIRADS Category 2: Benign. A letter regarding these results will be sent to the patient by the facility within 30 days. FOLLOW UP RECOMMENDATION: Yearly follow up mammogram recommended. (A) Approximately 10% of breast cancers are not detected by mammography. A normal mammogram should not delay biopsy of a clinically suspicious abnormality. Electronically Signed: Chester Crocker MD at 9:17 EDT , Service support ,
== END | disposition home or self-care (01) ==
LOC: OPBI 15:21
PROVIDERS: PCP Internal Medicine; Referring Provider Internal Medicine; Visit Provider Internal Medicine
DX: Z12.31 Encounter for screening mammogram for malignant neoplasm of breast (principal)
CPT/HCPCS: 77063; 77067

== ENCOUNTER → 2020-01-10 08:27 | Outpatient (CLI) | payer OTHER, SELFPAY ==
[2020-01-10 08:04] VITALS: BMI 26.4
[2020-01-10 12:35] LABS: Absolute Lymphocyte Count 1.32 X10^3/uL (0.83-4.51); Absolute Neutrophil Count 2.2 X10^3/uL (2.0-7.7); Basophil# 0.04 X10^3/uL; Eosinophils% 2.5 % (0-5); Hematocrit 41.6 % (37-47); Lymphocyte # 1.32 X10^3/ul (4.0); Lymphocyte % 33.4 % (19-41); Mean Corp Hgb Conc 33.7 g/dL (32-36); Mean Corpuscular Hgb 31.5 pg (27.0-32.0); Mean Corpuscular Volume 93.7 fL (81-99); Mean Platelet Vol. 10.2 fl (6.2-12.0); Monocyte# 0.32 X10^3/uL; Monocyte% 8.1 % (0-10); NRBC Flagged by Analyzer 0 % (0-5); Neutrophil # 2.15 X10^3/uL (2.7-7.7); Neutrophil % 54.5 % (47-70); Platelet Count 243 K/mm3 (150-450); RBC Distribution Width SD 41.5 fl (35.1-43.9); Red Blood Count 4.44 M/mm3 (4.2-5.4)
[2020-01-10 13:07] LABS: ALB/GLOB Ratio 1.2 RATIO (0.9-2.4); AST(SGOT) 18 U/L (15-37); Alanine Aminotransfer ALT/SGPT 33 U/L (13-56); Albumin, Serum 4.2 g/dL (3.2-5.0); Alkaline Phosphatase 66 U/L (45-117); Anion Gap 6 (5-15); BUN 9 mg/dL (7-18); BUN/Creat Ratio 11.4 RATIO (10-20); Calcium,Total 9.6 mg/dL (8.5-10.1); Chloride 110 mmol/L (98-107); Creatinine, Serum 0.79 mg/dL (0.55-1.02); EST Glomerular Filtration Rate 82 mL/min (>60); Est Glom Filt Rate - Afr Amer 100 mL/min (>60); Globulin 3.5 g/dL (2.2-4.2); Glucose 87 mg/dL (74-106); Potassium 3.9 mmol/L (3.5-5.1); Protein, Total 7.7 g/dL (6.4-8.2); Sodium Level 142 mmol/L (136-145)
== END ==
PROVIDERS: PCP Internal Medicine; Referring Provider Internal Medicine; Visit Provider Internal Medicine
DX: K59.09 Other constipation (principal); K21.9 Gastro-esophageal reflux disease without esophagitis
CPT/HCPCS: 36415; 80053; 85025

== ENCOUNTER 2020-06-18 13:37 | Emergency (ER) | payer OTHER, SELFPAY ==
[2020-01-20 08:13] VITALS: BMI 26.2
[2020-06-18 13:38] VITALS: BP 122/73; PULSE 104; RESP 18; TEMP 36.1; O2SAT 96; BMI 28.2
--- NOTE | 2020-06-18 13:55 | RAD_ITS ---
STUDY: X-RAY CHEST REASON FOR EXAM: Female, 50 years old. Chest pain and dyspnea, not Covid TECHNIQUE: PA and lateral views of the chest. COMPARISON: Comparison is made with prior study 10/26/2017. FINDINGS: EKG electrodes are seen. The lungs are clear and expanded. There is no demonstrated pleural abnormality. Normal size heart. Normal mediastinum and kelly. Normal visualized pulmonary arteries. Normal visualized aortic arch and descending thoracic aorta. Normal visualized thoracic spine. Normal visualized ribs, clavicles, and shoulders. There is no demonstrated abnormality of the visualized soft tissue structures of the upper abdomen. RAD/Chest PA and Lateral IMPRESSION: Normal x-ray examination of the chest. Electronically Signed: Chidi Rosenbaum MD at 14:43 EDT , Service support ,
--- NOTE | 2020-06-18 13:55 | EKG12_ITS ---
Test Reason : SOB Blood Pressure : / mmHG Vent. Rate : 089 BPM Atrial Rate : 089 BPM P-R Int : 150 ms QRS Dur : 080 ms QT Int : 368 ms P-R-T Axes : 056 030 031 degrees QTc Int : 447 ms Normal sinus rhythm Normal ECG Confirmed by PIEDAD LAGUNA, OLEG ([id number]), research editor MIRI GARCIA ([id number]) on 06/20/2020 1:09:39 PM Referred By: BETTYE Confirmed By:OLEG HERBERT MD
--- NOTE | 2020-06-18 13:56 | ED.DCSUM_ITS ---
History of Present Illness Chief Complaint: Shortness of Breath Informant: Patient Onset: Days Activity at onset: Exertion, Light Activity Timing: Intermittent, Waxes and wanes Quality: Dyspnea on exertion. Negative for: Orthopnea, PND, Wheezing Current Severity: Mild Maximum Severity: Moderate Worsened by: Exertion Relieved by: Nothing Associated Symptoms: Negative for: Bloody Sputum, Chills, Clear sputum, Cough, Ear pain, Fever, Green sputum, Post-nasal drainage, Rhinorrhea, Sore throat, S weats, White sputum Chest Pain: Intermittent, Sharp, Aching, - - Anterior left upper chest Narrative: Patient is a 50-year-old woman with history of pulmonary embolus diagnosed 2 years ago. She states she is on Eliquis; however, she is to have been compliant with her Eliquis. States over the past several days she has had dyspnea on exertion and chest discomfort that is pleuritic and related to exertion. She denies fever, chills night sweats. Denies rhinorrhea, congestion or postnasal drainage. Denies sore throat. She does complain of a left periorbital discomfort with no ocular visual symptoms. She denies ringing in the ears or decreased hearing. The headache is not positional. She denies trouble with speech or swallowing. She denies history of cardiac disease. She denies history of lung disease. She denies wheezing. She denies abdominal pain, nausea, vomiting or diarrhea. She denies melena hematochezia. She denies dysuria, frequency, urgency or hematuria. She denies leg pain or leg swelling. PE Risk Factors: Prior DVT or PE. Negative for: Cancer, OCP + Smoking + > 35, Recent immobilization, Recent surgery, Recent travel Prior similar symptoms: Yes - Pulmonary embolus Recent Illness/Hospitalization: No - Past Medical History (1) History of pulmonary embolus (PE) Status: Acute (2) Factor V Leiden mutation Status: Chronic (3) Gastroesophageal reflux disease Status: Chronic (4) IBS (irritable bowel syndrome) Status: Chronic (5) Migraines Status: Chronic (6) Right hip pain Status: Chronic (7) Seasonal allergies Status: Chronic Past Medical History - Allergies and Home Meds Allergies/Adverse Reactions: Allergies lactose Allergy (Severe, Verified 06/18/20 13:40) other upset stomach codeine Adverse Reaction (Verified 06/18/20 13:40) Unknown Primary Care Physician: Vijay Davila MD [Primary Care Provider] - Prior records reviewed: Yes Surgical History: cholecystectomy, hysterectomy Lives: With Family Smoking Status: Former smoker Alcohol: Rare Drugs: None - Family History Paternal Family History: Family History (Last Reviewed 01/20/20 @ 08:16 by Salome Gardner) Mother Hypertension Father Hypertension Grandfather Myocardial infarction Heart disease Grandmother Breast cancer Diabetes Aunt No problems noted. Family History: Reports: No pertinent history Review of Systems General: Reports: Malaise. Denies: Chills, Fever, Subjective, Sweats, Weight loss Eyes: Denies: Visual changes - bilaterally, Blurred Vision - bilaterally ENT: Denies: Bilateral ear pain, Rhinorrhea, Sore throat Cardiovascular: Reports: Chest pain. Denies: Palpitations, Heart racing Respiratory: Reports: Dyspnea, Dyspnea on exertion. Denies: Cough, Sputum, Orthopnea, Paroxysmal nocturnal dyspnea Gastrointestinal: Denies: Abdominal pain, Nausea, Vomiting, Diarrhea, Melena, Hematochezia Genitourinary: Reports: Dysuria Musculoskeletal: Denies: Myalgias, Arthralgias, Neck pain, Back pain, Swelling, Extremity Pain, -, - Skin: Denies: Rash, Wounds Neurological: Denies: Headache, Weakness, Numbness Endocrine: Denies: Polyuria, Polydipsia Hematologic: Denies: Easy bruising, Easy bleeding Physical Exam Vital Signs/Narrative: Vital Signs Temp Pulse Resp BP Pulse Ox 06/18/20 13:38 96.9 F L 104 H 18 122/73 H 96 Inital Vital Signs reviewed: Yes General: Well nourished, Well developed, No Acute Distress Head: Normocephalic, Atraumatic Eyes: Perrl, EOMI. Negative for: Pale conjunctiva, Scleral icterus ENT: Moist mucous membranes, No rhinorrhea. Negative for: Nasal congestion Neck: Supple, Nontender, No lymphadenopathy, No JVD Cardiovascular: Regular rhythm, No murmurs, Tachycardia Respiratory: No distress, CTA bilaterally, Chest nontender Abdomen: Soft, Nontender, Nondistended, Normal bowel sounds Back: Nontender, Normal Inspection. Negative for: CVA tenderness Extremities: Nontender, No edema, - - There is no asymmetry, swelling, discoloration, leg vein distention, palpable cords or tenderness along the distribution of the deep venous system. Skin: Normal color, No rash Neurological: Alert, Oriented x3, Cranial nerves II-XII grossly intact, Normal Strength, Normal Sensation Psychological: Normal affect, Normal Mood Diagnostic/Tx/Re-eval Chest X-Ray - ED: 2 View, Read by ED Physician, Normal, Heart, Mediastinum, Bony Structures, No Acute Disease, Chronic Changes, - - X-ray was interpreted by me at 1439. Impressions Chest X-Ray 06/18/20 13:55 IMPRESSION: Normal x-ray examination of the chest. Electronically Signed: Chidi Rosenbaum MD at 14:43 EDT , Service support , 06/18/20 13:55 Chest PA and Lateral [RAD] Stat Laboratory Results 06/18/20 06/18/20 06/18/20 14:15 14:15 14:15 WBC 5.3 RBC 4.28 Hgb 13.6 Hct 39.9 MCV 93.2 MCH 31.8 MCHC 34.1 RDW Std Deviation 41.6 RDW Coeff of Kate 12.1 Plt Count 224 MPV 9.5 Immature Gran % (Auto) 0.200 Neut % (Auto) 61.5 Lymph % (Auto) 29.0 [place] % (Auto) 7.1 Eos % (Auto) 1.5 Baso % (Auto) 0.7 Absolute Neuts (auto) 3.3 Absolute Lymphs (auto) 1.55 Nucleated RBC % 0 D-Dimer Quant (PE/DVT) <= 0.27 Sodium 139 Potassium 3.8 Chloride 106 Carbon Dioxide 28.0 Anion Gap 5 BUN 16 Creatinine 0.97 Estim Creat Clear Calc 63.82 Est GFR (MDRD) Af Amer 79 Est GFR (MDRD) Non-Af 65 BUN/Creatinine Ratio 16.5 Glucose 106 Calcium 8.5 Troponin I < 0.015 Patient has a heart score of 1. Patient presents with atypical chest pain. With a normal D-dimer CTA was not of performed. Plan is to discharge to home - EKG Initial EKG Interpretation: Sinus Rhythm - Normal sinus rhythm with a ventricular rate of 89. EKG is normal. OH interval is 150 ms. Cures duration 80 ms. QT duration 386 ms. [place] is normal. - Medical Decision Making With history of PE and complaint of dyspnea and pleuritic chest pain need to rule out PE especially since patient has not been compliant with her Eliquis. D-dimer was obtained. Chest x-ray obtained to determine if there is any evidence of a pneumonia or other causes of dyspnea. EKG to evaluate for cardiac ischemia. CBC to rule out anemia and base meta panel to assess renal function if a CTA is indicated to rule out pulmonary embolus. 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
[2020-06-18 14:10] VITALS: O2SAT 99
[2020-06-18 14:23] LABS: Absolute Lymphocyte Count 1.55 X10^3/uL (0.83-4.51); Absolute Neutrophil Count 3.3 X10^3/uL (2.0-7.7); Basophil# 0.04 X10^3/uL; Basophil% 0.7 % (0-1); Eosinophil# 0.08 X10^3/uL; Eosinophils% 1.5 % (0-5); Hematocrit 39.9 % (37-47); Hemoglobin 13.6 g/dL (12.0-15.0); Lymphocyte # 1.55 X10^3/ul (0.83-4.51); Mean Corp Hgb Conc 34.1 g/dL (32-36); Mean Corpuscular Hgb 31.8 pg (27.0-32.0); Mean Corpuscular Volume 93.2 fL (81-99); Mean Platelet Vol. 9.5 fl (6.2-12.0); Monocyte# 0.38 X10^3/uL; Monocyte% 7.1 % (0-10); NRBC Flagged by Analyzer 0 % (0-5); Neutrophil # 3.28 X10^3/uL (2.7-7.7); Neutrophil % 61.5 % (47-70); Platelet Count 224 K/mm3 (150-450); RBC Distribution Width CV 12.1 % (11.6-14.6); RBC Distribution Width SD 41.6 fl (35.1-43.9); Red Blood Count 4.28 M/mm3 (4.2-5.4); White Blood Count 5.3 K/mm3 (4.4-11.0)
[2020-06-18 14:33] LABS: D-Dimer Quantitative (DVT/PE) <= 0.27 FEU/ug/m (0.27-0.49)
[2020-06-18 14:38] LABS: Anion Gap 5 (5-15); BUN 16 mg/dL (7-18); BUN/Creat Ratio 16.5 RATIO (10-20); Calcium,Total 8.5 mg/dL (8.5-10.1); Chloride 106 mmol/L (98-107); Creatinine, Serum 0.97 mg/dL (0.55-1.02); EST Glomerular Filtration Rate 65 mL/min (>60); Est Glom Filt Rate - Afr Amer 79 mL/min (>60); Estimated Creatinine Clearance 63.82 ml/min; Glucose 106 mg/dL (74-106); Potassium 3.8 mmol/L (3.5-5.1); Sodium Level 139 mmol/L (136-145)
[2020-06-18 15:08] VITALS: BP 99/77; PULSE 71; RESP 16; O2SAT 98
[2020-06-18 15:20] VITALS: BP 112/71; PULSE 72; RESP 16; O2SAT 98
== END 2020-06-18 15:20 | disposition home or self-care (01) ==
PROVIDERS: Emergency Provider Emergency Medicine; PCP Internal Medicine
DX: R06.09 Other forms of dyspnea (principal); R07.9 Chest pain, unspecified; R00.0 Tachycardia, unspecified; K21.9 Gastro-esophageal reflux disease without esophagitis; Z87.891 Personal history of nicotine dependence; Z86.711 Personal history of pulmonary embolism; Z79.02 Long term (current) use of antithrombotics/antiplatelets
CPT/HCPCS: 71046; 80048; 84484; 85025; 85379; 93005; 99284

== ENCOUNTER → 2020-10-24 07:08 | Outpatient (CLI) | payer OTHER, SELFPAY ==
--- NOTE | 2020-10-24 07:08 | BI_ITS ---
MAMMOGRAPHY - BILATERAL SCREENING REASON FOR EXAM: Female, 50 years old. Routine annual screening examination. PERTINENT HISTORY: Grandmother with breast cancer. Aunt with breast cancer. TECHNIQUE: Digital bilateral breast adalgisa (3D mammographic acquisition) in the CC and MLO projections. 2-D mediolateral oblique (MLO) and craniocaudad (CC) views of both breasts were obtained. CAD: Full Field Digital Mammography with Computer Added Detection was performed. COMPARISON: Comparison is made with prior study dated 09/19/2019 and 09/15/2018. FINDINGS: Breast Composition: The breasts are heterogeneously dense, which may obscure small masses. There are no dominant masses or suspicious calcifications. Stable small benign appearing bilateral axillary lymph nodes. No other significant abnormalities are identified. There has been no significant change since the prior study. BI/SCRN MAMM (CAD)W/ADALGISA BILAT IMPRESSION: Stable bilateral screening mammogram. Yearly follow-up mammogram recommended. (A) ASSESSMENT CATEGORY: BIRADS Category 2: Benign. A letter regarding these results will be sent to the patient by the facility within 30 days. Approximately 10% of breast cancers are not detected by mammography. A normal mammogram should not delay biopsy of a clinically suspicious abnormality. [id number] Electronically Signed: Cihdi Rosenbaum MD at 8:41 EDT , Service support ,
== END ==
PROVIDERS: PCP Internal Medicine; Referring Provider Nurse Practitioner Family; Visit Provider Nurse Practitioner Family
DX: Z12.31 Encounter for screening mammogram for malignant neoplasm of breast (principal)
CPT/HCPCS: 77063; 77067

== ENCOUNTER → 2020-11-02 | Outpatient (CLI) | payer OTHER, SELFPAY | END | disposition home or self-care (01) | LOC: LABSPEC 11-03 10:24 | PROVIDERS: PCP Internal Medicine; Referring Provider Physician Assistant Surgical; Visit Provider Physician Assistant Surgical | DX: Z20.822 Contact with and (suspected) exposure to COVID-19 (principal) | CPT/HCPCS: 87635; U0005; U0003 ==

== ENCOUNTER → 2020-11-14 07:36 | Outpatient (CLI) | payer OTHER, SELFPAY ==
--- NOTE | 2020-11-14 07:40 | US_ITS ---
STUDY: ULTRASOUND OF THE FEMALE PELVIS - COMPLETE REASON FOR EXAM: Female, 50 years old. Vaginal bleeding -- s/p hysterectomy bilat ov remain LMP: Status post hysterectomy. TECHNIQUE: Transabdominal and Transvaginal TECHNICAL QUALITY: Adequate. COMPARISON: None. FINDINGS: The patient is status post hysterectomy. The right ovary is visualized. The right ovary measures 2.4 cm x 2.6 cm x 1.1 cm. There is no right ovarian cyst or ovarian mass. There is no visualized right adnexal mass or complex lesion. There is normal arterial and normal venous vascularity. The left ovary is visualized. The left ovary measures 2.4 cm x 2.3 cm x 1.9 cm. There is a dominant follicle within the left ovary measuring 1.7 cm x 1.4 cm x 1.6 cm. There is no visualized left adnexal mass or complex lesion. There is normal arterial and normal venous vascularity. There is no fluid in the cul-de-sac. The pre void volume of the bladder was 369 ml. US/Transvaginal Non- IMPRESSION: Status post hysterectomy. Dominant follicle in the left ovary measuring 1.7 cm x 1.4 cm x 1.6 cm. Electronically Signed: Chidi Rosenbaum MD at 8:21 EDT , Service support ,
--- NOTE | 2020-11-14 07:40 | US_ITS ---
STUDY: ULTRASOUND OF THE FEMALE PELVIS - COMPLETE REASON FOR EXAM: Female, 50 years old. Vaginal bleeding -- s/p hysterectomy bilat ov remain LMP: Status post hysterectomy. TECHNIQUE: Transabdominal and Transvaginal TECHNICAL QUALITY: Adequate. COMPARISON: None. FINDINGS: The patient is status post hysterectomy. The right ovary is visualized. The right ovary measures 2.4 cm x 2.6 cm x 1.1 cm. There is no right ovarian cyst or ovarian mass. There is no visualized right adnexal mass or complex lesion. There is normal arterial and normal venous vascularity. The left ovary is visualized. The left ovary measures 2.4 cm x 2.3 cm x 1.9 cm. There is a dominant follicle within the left ovary measuring 1.7 cm x 1.4 cm x 1.6 cm. There is no visualized left adnexal mass or complex lesion. There is normal arterial and normal venous vascularity. There is no fluid in the cul-de-sac. The pre void volume of the bladder was 369 ml. US/Pelvic (Non ) IMPRESSION: Status post hysterectomy. Dominant follicle in the left ovary measuring 1.7 cm x 1.4 cm x 1.6 cm. Electronically Signed: Chidi Rosenbaum MD at 8:21 EDT , Service support ,
== END ==
PROVIDERS: PCP Internal Medicine; Referring Provider Obstetrics & Gynecology; Visit Provider Obstetrics & Gynecology
DX: N93.9 Abnormal uterine and vaginal bleeding, unspecified (principal)
CPT/HCPCS: 76830; 76856

== ENCOUNTER 2021-03-16 16:52 | Emergency (ER) | payer OTHER, SELFPAY ==
[2021-03-16 16:53] VITALS: BP 123/88; PULSE 92; RESP 16; TEMP 36.3; O2SAT 96; BMI 25.8
--- NOTE | 2021-03-16 17:13 | EKG12_ITS ---
Test Reason : SOB Blood Pressure : / mmHG Vent. Rate : 099 BPM Atrial Rate : 099 BPM P-R Int : 156 ms QRS Dur : 088 ms QT Int : 360 ms P-R-T Axes : 054 047 041 degrees QTc Int : 462 ms Normal sinus rhythm Normal ECG Confirmed by PIEDAD LAGUNA, OLEG ([id number]), editor in chief [facility] ([id number]) on 03/18/2021 10:55:57 AM Referred By: TISHA Confirmed By:OLEG HERBERT MD
--- NOTE | 2021-03-16 17:15 | EDS_ITS ---
HPI History of Present Illness Chief Complaint: Shortness of Breath Informant: patient Onset/Context/Timing Onset: Days (3) Context: gradual Timing: Continuous Quality: Positive for Dyspnea on exertion Worsened by: Exertion Relieved by: Nothing Associated Symptoms Negative for cough, rhinorrhea, fever, sore throat or chills Chest Pain: Positive for Pressure Narrative Narrative: Patient presents with shortness of breath that has been getting worse over the past 3 days. Patient states she was diagnosed with COVID-19 on 03/09/2021. Patient states this is day 11 of her symptoms. Patient states she has been having some pressure and tightness in her chest. Patient states her breathing is worse with any exertion. Patient states nothing seems to help with it. Patient also admits to some lightheadedness. Patient denies any nausea or vomiting. Patient denies any fevers or chills. PE Risk Factors: Positive for Prior DVT or PE; Negative for Cancer, OCP + Smoking + > 35, Recent surgery and Recent travel [facility] Medical History Anemia Chest pain Factor 5 Leiden mutation, heterozygous History of endometrial biopsy History of hemorrhoids History of sigmoidoscopy IBS (irritable bowel syndrome) Migraines Neck/Back Pain Seasonal allergies Severe headache Shortness of breath Sinusitis Home Medications apixaban 5 mg tablet 5 mg PO BID #180 tab 01/22/21 [Rx Last Taken Unknown] linaclotide 290 mcg capsule 290 mcg PO QDAY #90 cap 01/22/21 [Rx Last Taken Unknown] sumatriptan succinate 25 mg tablet See Rx Instructions PO .COMPLEX #14 tablet 02/11/21 [Rx Last Taken Unknown] Allergy/AdvReac Type Severity Reaction Status Date / Time lactose Allergy Severe other Verified 03/16/21 16:52 codeine AdvReac Unknown Verified 03/16/21 16:52 Family History Mother Hypertension Father Hypertension Grandfather Myocardial infarction Heart disease Grandmother Breast cancer Diabetes Alzheimer disease Aunt Breast cancer Surgical History History of cholecystectomy History of hip surgery History of hysterectomy History of tonsillectomy History of tubal ligation S/P colonoscopy S/P LEEP Status post colposcopy Social History Smoking Status: Former smoker alcohol intake: never substance use type: does not use caffeine: Yes what type of physical activity do you participate in: none additional social history: 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 ROS ED Constitutional Constitutional ED: Denies chills or fever(s) Eyes Eyes: Denies blurry vision or change in vision ENT ENT ED: Denies rhinorrhea or sore throat Cardiovascular Cardiovascular: Reports chest pain; Denies palpitations Respiratory/Chest Respiratory/Chest: Reports dyspnea; Denies cough Gastrointestinal Gastrointestinal: Denies nausea or vomiting Genitourinary Genitourinary ED: Denies dysuria or hematuria Musculoskeletal Musculoskeletal: Reports back pain; Denies neck pain Integumentary Denies abscess or rash Neurologic Neurologic: Reports headache(s); Denies weakness Allergic/Immunologic Allergic/Immunologic ED: Denies mouth swelling or urticaria EXAM Physical Exam Const Vital Signs: 03/16/21 16:53 03/16/21 17:28 03/16/21 17:29 Temperature 97.4 F L Temperature Source Temporal Pulse Rate 92 102 H Respiratory Rate 16 18 Respiratory Effort Normal Non-Labored Respiratory Depth Normal Respiratory Pattern Normal Normal Blood Pressure 123/88 H Blood Pressure Mean 99 Pulse Ox 96 Oxygen Delivery Method Room Air Room Air Positive well nourished and well developed General Appearance ED: well developed HEENT Reports moist mucous membranes Neck supple and no JVD Resp normal respiratory effort and clear to auscultation bilaterally Cardio regular rate, regular rhythm and no murmurs GI normal to inspection, nondistended, normoactive bowel sounds and non-tender Palpation: soft Extremity normal to inspection General Extremety ED: Negative for edema or tenderness General Extremity: Negative for edema Neuro oriented x3, CN's II-XII intact bilaterally and no sensory deficits noted Sensorium / Orientation: alert Motor Exam: strength 5/5 throughout Psych mental status grossly normal Skin no rashes or lesions noted MDM MDM MDM Narrative Medical decision making narrative: EKG was obtained. On my interpretation, it showed a normal sinus rhythm with a rate of 99. MD interval, QRS interval, and QTc intervals were all normal. [place] was normal. There are no acute ST or T wave changes. CBC and comprehensive metabolic profile within normal limits. High-sensitivity troponin was normal. D-dimer was normal. Portable 1 view chest x-ray was obtained. On my interpretation, lung briceño are clear. There is normal cardiac silhouette. Bony thorax is normal. There is no acute process noted. Radiologist also interpreted the x-ray and agrees. Patient was advised of her findings. Patient was instructed to follow-up with her primary care physician in 3 to 5 days. Patient was instructed return if worse in any way. Patient understood and was agreeable with the plan. All questions were answered. Lab Data Attestation: I reviewed the patient's lab results. Labs: Laboratory Results - last 24 hr 03/16/21 03/16/21 03/16/21 17:24 17:24 17:24 WBC 6.5 RBC 4.14 L Hgb 13.3 Hct 37.8 MCV 91.3 MCH 32.1 H MCHC 35.2 RDW Std Deviation 39.5 RDW Coeff of Kate 11.8 Plt Count 230 MPV 9.5 Immature Gran % (Auto) 0.200 Neut % (Auto) 61.4 Lymph % (Auto) 29.9 [place] % (Auto) 6.2 Eos % (Auto) 1.7 Baso % (Auto) 0.6 Absolute Neuts (auto) 4.0 Absolute Lymphs (auto) 1.93 Nucleated RBC % 0 D-Dimer Quant (PE/DVT) <= 0.27 Sodium 141 Potassium 3.4 L Chloride 109 H Carbon Dioxide 27.0 Anion Gap 5 BUN 12 Creatinine 0.71 Estim Creat Clear Calc 87.19 Est GFR (MDRD) Af Amer 113 Est GFR (MDRD) Non-Af 94 BUN/Creatinine Ratio 17.0 Glucose 119 H Calcium 8.6 Total Bilirubin 0.60 AST 15 ALT 26 Alkaline Phosphatase 66 Troponin I High Sens 3 Total Protein 6.9 Albumin 3.7 Globulin 3.2 Albumin/Globulin Ratio 1.2 Radiography Chest X-Ray - ED: 1 View, Read by ED Physician, Read by Radiologist and Normal EKG Initial EKG: Attestation: I personally reviewed and interpreted this EKG as follows: Interpretation: Sinus Rhythm (99) and No Acute Injury Pattern Prior EKG tracings: available for review Prior: Unchanged (06/18/2020) Discharge Plan Triage Chief Complaint: Shortness of Breath ED Provider: Garrick De La Torre Dx/Rx/DC Orders Clinical Impression: Dyspnea, COVID Instructions: Coronavirus Disease 2019 (COVID-19): Overview, ED Dyspnea Prescriptions: No Action apixaban 5 mg tablet 5 mg PO BID Qty: 180 RF: 3 linaclotide 290 mcg capsule 290 mcg PO QDAY Qty: 90 RF: 3 sumatriptan succinate 25 mg tablet See Rx Instructions PO .COMPLEX Qty: 14 RF: 0 Primary Care Provider: Vijay Davila Referrals: Vijay Davila MD [Primary Care Provider] - 3-5 Days Disposition Disposition: Home, Self Care
[2021-03-16 17:28] VITALS: O2SAT 97
[2021-03-16] MEDS: Ipratropium/Albuterol Sulfate 3 ML AMPUL.NEB INHALATION (17:28)
[2021-03-16 17:29] VITALS: PULSE 102; RESP 18
[2021-03-16 17:31] LABS: Absolute Lymphocyte Count 1.93 X10^3/uL (0.83-4.51); Basophil# 0.04 X10^3/uL; Basophil% 0.6 % (0-1); Eosinophil# 0.11 X10^3/uL; Eosinophils% 1.7 % (0-5); Hematocrit 37.8 % (37-47); Hemoglobin 13.3 g/dL (12.0-15.0); Lymphocyte # 1.93 X10^3/ul (0.83-4.51); Lymphocyte % 29.9 % (19-41); Mean Corp Hgb Conc 35.2 g/dL (32-36); Mean Corpuscular Hgb 32.1 pg (27.0-32.0); Mean Corpuscular Volume 91.3 fL (81-99); Mean Platelet Vol. 9.5 fl (6.2-12.0); Monocyte% 6.2 % (0-10); NRBC Flagged by Analyzer 0 % (0-5); Neutrophil # 3.97 X10^3/uL (2.7-7.7); Neutrophil % 61.4 % (47-70); Platelet Count 230 K/mm3 (150-450); RBC Distribution Width CV 11.8 % (11.6-14.6); RBC Distribution Width SD 39.5 fl (35.1-43.9); Red Blood Count 4.14 M/mm3 (4.2-5.4); White Blood Count 6.5 K/mm3 (4.4-11.0)
[2021-03-16 17:48] LABS: D-Dimer Quantitative (DVT/PE) <= 0.27 FEU/ug/m (0.27-0.49)
[2021-03-16 17:49] LABS: ALB/GLOB Ratio 1.2 RATIO (0.9-2.4); AST(SGOT) 15 U/L (15-37); Alanine Aminotransfer ALT/SGPT 26 U/L (13-56); Albumin, Serum 3.7 g/dL (3.2-5.0); Alkaline Phosphatase 66 U/L (45-117); Anion Gap 5 (5-15); BUN 12 mg/dL (7-18); Calcium,Total 8.6 mg/dL (8.5-10.1); Chloride 109 mmol/L (98-107); Creatinine, Serum 0.71 mg/dL (0.55-1.02); EST Glomerular Filtration Rate 94 mL/min (>60); Est Glom Filt Rate - Afr Amer 113 mL/min (>60); Estimated Creatinine Clearance 87.19 ml/min; Globulin 3.2 g/dL (2.2-4.2); Glucose 119 mg/dL (74-106); Potassium 3.4 mmol/L (3.5-5.1); Protein, Total 6.9 g/dL (6.4-8.2); Sodium Level 141 mmol/L (136-145); Troponin-I HS 3 pg/mL (3.0-54.0)
--- NOTE | 2021-03-16 18:30 | RAD_ITS ---
INDICATION: Dyspnea EXAMINATION/TECHNIQUE: X-RAY - XR Chest 1 View COMPARISON: 06/18/2020. FINDINGS: The lungs are clear. The cardiomediastinal silhouette is unremarkable. No pleural effusion or pneumothorax. No acute osseous abnormalities. RAD/Chest 1 View (Portable) IMPRESSION: No acute radiographic abnormalities. Electronically Signed: Tomasz Louie MD at 19:08 EST Tel , Service support ,
[2021-03-16 18:51] VITALS: BP 117/72; PULSE 56
== END 2021-03-16 18:54 | disposition home or self-care (01) ==
PROVIDERS: Emergency Provider Emergency Medicine; PCP Internal Medicine; Visit Provider Emergency Medicine
DX: U07.1 COVID-19 (principal); D68.51 Activated protein C resistance; Z79.01 Long term (current) use of anticoagulants; Z87.891 Personal history of nicotine dependence
CPT/HCPCS: 71045; 80053; 84484; 85025; 85379; 93005; 94640; 99284; A4216

== ENCOUNTER → 2021-09-30 | Outpatient (CLI) | payer OTHER, SELFPAY ==
--- NOTE | 2021-09-30 12:41 | MRI_ITS ---
STUDY: MR RIGHT HIP ARTHROGRAPHY REASON FOR EXAM: Right hip pain, surgery 2 years ago, reinjury of right hip. TECHNIQUE: Standardized fat and water weighted pulse sequences were obtained in all 3 orthogonal planes after intra-articular instillation of dilute gadolinium. COMPARISON: MRI images 08/18/2018. FINDINGS: Normal hip joint without articular joint space narrowing. Normal acetabulum. There is a small tear of the anterosuperior labrum (T1 sagittal image 9). Normal femoral head. Normal femoral neck and intratrochanteric region. Normal gluteus minimus, medius and iliopsoas tendons and distal insertions. There is no trochanteric, iliopsoas or iliopectineal bursitis. Normal superior and inferior pubic rami. Normal ischial tuberosity. Normal origin of the hamstring tendons. Normal visualized iliac wing. There is mild extravasated contrast at the anterior aspect of the hip joint. MRI/Lower Ext/Jt Only/W Contrast IMPRESSION: Small anterosuperior labral tear. Electronically Signed: Masood Syed MD at 14:45 EDT ,
--- NOTE | 2021-09-30 12:45 | RAD_ITS ---
FLUOROSCOPY GUIDED RIGHT HIP MRI ARTHROGRAM. INDICATION: Right hip pain.. PERFORMING PHYSICIAN:Wei Patterson MD DATE OF PROCEDURE: 09/30/2021 OUTFITTER CABIN: NONE ESTIMATED BLOOD LOSS: None. SPECIMENS REMOVED: None COMPLICATIONS: None PROCEDURE: Informed consent was obtained from the patient. The risks (including bleeding, infection and capsular rupture), benefits, and alternatives to the examination were discussed and written informed consent was obtained. The patient was placed supine on the fluoroscopy table. Fluoroscopic evaluation of the right hip was performed. The patient was draped and prepared in a sterile fashion. The entrance site was localized using fluoroscopic guidance. Local anesthesia was achieved with 1% lidocaine solution. A 22-gauge spinal needle and stylet were introduced under fluoroscopic guidance into the right hip joint joint and approximately 2 mL of iodinated contrast was instilled to confirm intra-articular position. A dilated MRI contrast was then injected into the right hip joint. Total of 15 mL was injected. The needle was then removed and sterile dressing was applied. The entrance site was dressed with a Band-Aid. There were no immediate postprocedural complications. The patient was then transferred to MRI in stable condition. RAD/Arthrogram Hip w/ MRI IMPRESSION: Fluoroscopy guided right hip arthrogram for MRI. Electronically Signed: Wei Patterson MD at 15:30 EDT ,
[2021-09-30] MEDS: Iopamidol 10 ML in Syringe 1 EACH 600 ML INTRAARTIC (13:07)
[2021-09-30] MEDS: Lidocaine 2% (10 ml mdv) 10 ML Vial (15:05)
== END | disposition home or self-care (01) ==
PROVIDERS: PCP Internal Medicine; Referring Provider Specialist; Visit Provider Specialist
DX: S73.191A Other sprain of right hip, initial encounter (principal)
CPT/HCPCS: 27093; 73722; 77002; Q9967

== ENCOUNTER → 2021-11-19 | Outpatient (CLI) | payer OTHER, SELFPAY ==
--- NOTE | 2021-11-19 16:31 | BI_ITS ---
MAMMOGRAPHY - BILATERAL SCREENING 3-D TOMOSYNTHESIS REASON FOR EXAM: Female, 51 years old. screening -- due after 10/24/20 PERTINENT HISTORY: No significant family history. TECHNIQUE: 2-D mammograms and 3-D Tomosynthesis of the breast (s) were performed. CAD was performed. COMPARISON: 10/24/2020 FINDINGS: The breast composition is heterogeneously dense that can obscure small breast masses. Scattered benign calcifications are seen. No dense spiculated masses or suspicious microcalcifications are identified. No architectural distortion is identified. There is no skin thickening or retraction. There has been no significant change since the prior study. BI/SCRN MAMM (CAD)W/ADALGISA BILAT IMPRESSION: No mammographic signs of malignancy. Routine yearly mammograms recommended. ASSESSMENT CATEGORY: BIRADS Category 1: Negative. A letter regarding these results will be sent to the patient by the facility within 30 days. FOLLOW UP RECOMMENDATION: Yearly follow up mammogram recommended. (A) Approximately 10% of breast cancers are not detected by mammography. A normal mammogram should not delay biopsy of a clinically suspicious abnormality. Electronically Signed: Lj De La Cruz MD at 17:42 EDT ,
== END | disposition home or self-care (01) ==
LOC: OPBI 11-20 07:22
PROVIDERS: PCP Internal Medicine; Visit Provider Obstetrics & Gynecology
DX: Z12.31 Encounter for screening mammogram for malignant neoplasm of breast (principal)
CPT/HCPCS: 77063; 77067

== ENCOUNTER 2022-01-14 10:55 | Outpatient (CLI) | payer OTHER, SELFPAY ==
[2022-01-14 12:00] LABS: NATERA MAILED SPECIMEN
== END 2022-01-14 23:59 | disposition home or self-care (01) ==
LOC: PAVLAB 10:56
PROVIDERS: PCP Internal Medicine; Referring Provider Obstetrics & Gynecology; Visit Provider Obstetrics & Gynecology
DX: Z13.79 Encounter for other screening for genetic and chromosomal anomalies (principal); Z80.3 Family history of malignant neoplasm of breast
CPT/HCPCS: 36415

== ENCOUNTER → 2022-06-06 | Outpatient (CLI) | payer OTHER, SELFPAY ==
[2022-06-06 12:54] LABS: Absolute Lymphocyte Count 1.44 X10^3/uL (0.83-4.51); Absolute Neutrophil Count 2.3 X10^3/uL (2.0-7.7); Basophil# 0.05 X10^3/uL; Basophil% 1.2 % (0-1); Eosinophil# 0.08 X10^3/uL; Eosinophils% 1.9 % (0-5); Hematocrit 43.6 % (37-47); Hemoglobin 14.6 g/dL (12.0-15.0); Lymphocyte # 1.44 X10^3/ul (0.83-4.51); Lymphocyte % 34.1 % (19-41); Mean Corp Hgb Conc 33.5 g/dL (32-36); Mean Corpuscular Hgb 30.9 pg (27.0-32.0); Mean Corpuscular Volume 92.4 fL (81-99); Mean Platelet Vol. 10.2 fl (6.2-12.0); Monocyte# 0.33 X10^3/uL; Monocyte% 7.8 % (0-10); NRBC Flagged by Analyzer 0 % (0-5); Neutrophil # 2.31 X10^3/uL (2.7-7.7); Neutrophil % 54.8 % (47-70); Platelet Count 246 K/mm3 (150-450); RBC Distribution Width CV 12.5 % (11.6-14.6); RBC Distribution Width SD 42.4 fl (35.1-43.9); Red Blood Count 4.72 M/mm3 (4.2-5.4); White Blood Count 4.2 K/mm3 (4.4-11.0)
[2022-06-06 13:10] LABS: ALB/GLOB Ratio 1.4 RATIO (0.9-2.4); AST(SGOT) 19 U/L (15-37); Alanine Aminotransfer ALT/SGPT 21 U/L (13-56); Alkaline Phosphatase 85 U/L (45-117); Anion Gap 5 (5-15); BUN 9 mg/dL (7-18); BUN/Creat Ratio 12.4 RATIO (10-20); Calcium,Total 9.4 mg/dL (8.5-10.1); Chloride 108 mmol/L (98-107); Cholesterol 216 mg/dL (200); Creatinine, Serum 0.72 mg/dL (0.55-1.02); EST Glomerular Filtration Rate 90 mL/min (>60); Est Glom Filt Rate - Afr Amer 109 mL/min (>60); Globulin 2.9 g/dL (2.2-4.2); Glucose 99 mg/dL (74-106); High Density Lipoprotein 69 mg/dL; Protein, Total 6.9 g/dL (6.4-8.2); Sodium Level 140 mmol/L (136-145); Thyroid Stim Hormone (TSH) 1.48 uIU/mL (0.358-3.74); Triglycerides 99 mg/dL; Very Low Density Lipoprotein 20 mg/dL (5-40); Vitamin B12 392 pg/mL (211-911); Vitamin D,25 Hydroxy 60.5 ng/mL
[2022-06-06 13:11] LABS: CRP < 2.90 mg/L (0.0-3.0)
[2022-06-06 13:17] LABS: Rheumatoid Factor < 10.0 IU/mL (<15)
[2022-06-06 14:32] LABS: Erythrocyte Sedimentation Rate 3 mm/hr (0-30)
[2022-06-09 15:39] LABS: ANTINUCLEAR ANTIBODIES DIRECT Negative (Negative)
== END | disposition home or self-care (01) ==
LOC: BIMLAB 08:10
PROVIDERS: PCP Internal Medicine; Referring Provider Nurse Practitioner Family; Visit Provider Nurse Practitioner Family
DX: M25.50 Pain in unspecified joint (principal); R53.83 Other fatigue; E56.9 Vitamin deficiency, unspecified; F32.9 Major depressive disorder, single episode, unspecified
CPT/HCPCS: 36415; 80053; 80061; 82306; 82607; 84443; 85025; 85652; 86038; 86140; 86225; 86235; 86431

== ENCOUNTER → 2022-11-27 | Outpatient (CLI) | payer OTHER, SELFPAY ==
--- NOTE | 2022-11-27 07:09 | BI_ITS ---
MAMMOGRAPHY - BILATERAL SCREENING REASON FOR EXAM: Female, 52 years old. Routine annual screening examination. PERTINENT HISTORY: Grandmother with breast cancer. Aunt with breast cancer. TECHNIQUE: Digital bilateral breast adalgisa (3D mammographic acquisition) in the CC and MLO projections. 2-D mediolateral oblique (MLO) and craniocaudad (CC) views of both breasts were obtained. CAD: Full Field Digital Mammography with Computer Added Detection was performed. COMPARISON: Comparison is made with prior study dated November 19, 2021 and October 24, 2020. FINDINGS: Breast Composition: The breasts are heterogeneously dense, which may obscure small masses. There are no dominant masses or suspicious calcifications. No other significant abnormalities are identified. There has been no significant change since the prior study. BI/SCRN MAMM (CAD)W/ADALGISA BILAT IMPRESSION: Stable bilateral screening mammogram. Yearly follow-up mammogram recommended. (A) ASSESSMENT CATEGORY: BIRADS Category 1: Negative. A letter regarding these results will be sent to the patient by the facility within 30 days. Approximately 10% of breast cancers are not detected by mammography. A normal mammogram should not delay biopsy of a clinically suspicious abnormality. [id number] Electronically Signed: Chidi Rosenbaum MD at 8:36 EDT ,
== END | disposition home or self-care (01) ==
LOC: OPBI 07:07
PROVIDERS: PCP Internal Medicine; Referring Provider Internal Medicine; Visit Provider Internal Medicine
DX: Z12.31 Encounter for screening mammogram for malignant neoplasm of breast (principal)
CPT/HCPCS: 77063; 77067

== ENCOUNTER → 2023-01-30 | Outpatient (CLI) | payer OTHER, SELFPAY ==
[2023-01-30 12:09] LABS: Absolute Lymphocyte Count 1.53 X10^3/uL (0.83-4.51); Absolute Neutrophil Count 2.6 X10^3/uL (2.0-7.7); Basophil# 0.04 X10^3/uL; Basophil% 0.9 % (0-1); Eosinophil# 0.12 X10^3/uL; Eosinophils% 2.6 % (0-5); Hematocrit 42.4 % (37-47); Hemoglobin 14.4 g/dL (12.0-15.0); Lymphocyte # 1.53 X10^3/ul (0.83-4.51); Lymphocyte % 33.4 % (19-41); Mean Corpuscular Hgb 31.3 pg (27.0-32.0); Mean Corpuscular Volume 92.2 fL (81-99); Mean Platelet Vol. 10.1 fl (6.2-12.0); Monocyte# 0.32 X10^3/uL; NRBC Flagged by Analyzer 0 % (0-5); Neutrophil # 2.55 X10^3/uL (2.7-7.7); Neutrophil % 55.7 % (47-70); Platelet Count 247 K/mm3 (150-450); RBC Distribution Width CV 12.5 % (11.6-14.6); RBC Distribution Width SD 42.5 fl (35.1-43.9); White Blood Count 4.6 K/mm3 (4.4-11.0)
[2023-01-30 12:23] LABS: Anion Gap 4 (5-15); BUN 11 mg/dL (7-18); BUN/Creat Ratio 13.8 RATIO (10-20); Calcium,Total 8.5 mg/dL (8.5-10.1); Chloride 107 mmol/L (98-107); EST Glomerular Filtration Rate 80 mL/min (>60); Est Glom Filt Rate - Afr Amer 97 mL/min (>60); Glucose 102 mg/dL (74-106); Sodium Level 139 mmol/L (136-145)
== END | disposition home or self-care (01) ==
LOC: BIMLAB 08:33
PROVIDERS: PCP Internal Medicine; Visit Provider Internal Medicine
DX: K59.09 Other constipation (principal); F32.9 Major depressive disorder, single episode, unspecified
CPT/HCPCS: 36415; 80048; 85025

== ENCOUNTER → 2023-06-30 | Outpatient (CLI) | payer OTHER, SELFPAY ==
[2023-06-30 12:42] LABS: Hematocrit 41.6 % (37-47); Hemoglobin 14.5 g/dL (12.0-15.0); Mean Corp Hgb Conc 34.9 g/dL (32-36); Mean Corpuscular Hgb 32.1 pg (27.0-32.0); Mean Platelet Vol. 10.3 fl (6.2-12.0); Platelet Count 230 K/mm3 (150-450); RBC Distribution Width CV 11.7 % (11.6-14.6); RBC Distribution Width SD 39.5 fl (35.1-43.9); Red Blood Count 4.52 M/mm3 (4.2-5.4); White Blood Count 4.4 K/mm3 (4.4-11.0)
[2023-06-30 12:57] LABS: Vitamin B12 > 2000 pg/mL (211-911)
[2023-06-30 13:15] LABS: ALB/GLOB Ratio 1.4 RATIO (0.9-2.4); AST(SGOT) 17 U/L (15-37); Alanine Aminotransfer ALT/SGPT 18 U/L (13-56); Albumin, Serum 4.1 g/dL (3.2-5.0); Alkaline Phosphatase 70 U/L (45-117); Anion Gap 4 (5-15); BUN 7 mg/dL (7-18); BUN/Creat Ratio 8.1 RATIO (10-20); Calcium,Total 8.9 mg/dL (8.5-10.1); Chloride 104 mmol/L (98-107); Creatinine, Serum 0.87 mg/dL (0.55-1.02); EST Glomerular Filtration Rate 73 mL/min (>60); Est Glom Filt Rate - Afr Amer 88 mL/min (>60); Glucose 95 mg/dL (74-106); Potassium 3.4 mmol/L (3.5-5.1); Protein, Total 7.1 g/dL (6.4-8.2); Sodium Level 138 mmol/L (136-145); Thyroid Stim Hormone (TSH) 0.67 uIU/mL (0.358-3.74)
[2023-07-03 16:09] LABS: Vitamin B1, Thiamine 121.4 nmol/L (66.5-200.0)
== END | disposition home or self-care (01) ==
LOC: MTLAB 10:13
PROVIDERS: PCP Internal Medicine; Referring Provider Psychiatry & Neurology Neurology; Visit Provider Psychiatry & Neurology Neurology
DX: G43.009 Migraine without aura, not intractable, without status migrainosus (principal); R53.83 Other fatigue; G90.A Postural orthostatic tachycardia syndrome [POTS]
CPT/HCPCS: 36415; 80053; 82607; 82746; 84425; 84443; 85027

== ENCOUNTER → 2023-07-13 | Outpatient (CLI) | payer OTHER, SELFPAY ==
--- NOTE | 2023-07-13 11:20 | MRI_ITS ---
STUDY: MRI BRAIN WITH AND WITHOUT CONTRAST (ATTENTION INTERNAL AUDITORY CANALS - I.A.C.s) REASON FOR EXAM: Female, 53 years old patient with migraine headache and dizziness. TECHNIQUE: Standardized multiplanar fat and water weighted pulse sequences were obtained. 12 ml of IV Clariscan was administered for the contrast portion of the examination. COMPARISON: None. FINDINGS: Normal bilateral temporal bones. Normal bilateral internal auditory canals. There is no demonstrated intracanalicular or cisternal vestibular schwannoma (acoustic neuroma). There is no enhancement of the bilateral VIIth or VIIIth cranial nerves. Normal bilateral cochlea, vestibules and semicircular canals. Appears to be a small arachnoid cyst at the right cerebellopontine angle measuring 1.3 x 1 x 0.6 cm. This has signal isointense to CSF on all sequences. This does not exhibit restricted diffusion. Normal size of the ventricles and extra-axial spaces for the patient''s age. Normal white matter tracts of the supratentorial brain. There is no evidence for recent intracranial ischemia or other cause of cytotoxic edema on diffusion weighted imaging (DWI). No T2* demonstrated susceptibility artifact. There is no demonstrated hemosiderin stain. Normal bilateral basal ganglia. Normal thalami. Normal flow voids within the major intracranial circulation suggesting patency by spin echo criteria. Normal venous enhancement. There is no enhancing intra-axial or extra-axial abnormality. There is no extra-axial fluid accumulation. Normal sella turcica, pituitary gland, infundibular stalk, optic chiasm and hypothalamus. Normal tectal plate and pineal gland. Normal midbrain, guanako and medulla. Normal cerebellum. Normal basal cisterns. No demonstrated orbital abnormality, within the constraints of a routine brain study. There is a right maxillary sinus mucous retention cyst. Normal calvarium and skull base. Normal visualized soft tissue structures. Normal visualized upper cervical spine. MRI/Brain W/WO Contrast IMPRESSION: 1. No MR evidence for cerebellopontine angle mass or internal auditory canal lesion. 2. Findings suggest small arachnoid cyst at the right cerebellopontine angle. 3. No MR evidence for acute infarct. Electronically Signed: Yanet Rodrigues MD at 4:19 EDT ,
== END | disposition home or self-care (01) ==
PROVIDERS: PCP Internal Medicine; Referring Provider Psychiatry & Neurology Neurology; Visit Provider Psychiatry & Neurology Neurology
DX: G43.009 Migraine without aura, not intractable, without status migrainosus (principal); R42 Dizziness and giddiness
CPT/HCPCS: 70553; A9575

== ENCOUNTER → 2023-07-14 | Outpatient (CLI) | payer OTHER, SELFPAY ==
[2023-07-14 17:45] LABS: Potassium 3.5 mmol/L (3.5-5.1)
== END | disposition home or self-care (01) ==
LOC: LAB 16:34
PROVIDERS: PCP Internal Medicine; Referring Provider Psychiatry & Neurology Neurology; Visit Provider Psychiatry & Neurology Neurology
DX: E87.6 Hypokalemia (principal)
CPT/HCPCS: 36415; 84132

== ENCOUNTER → 2023-08-03 | Outpatient (CLI) | payer OTHER, SELFPAY ==
[2023-08-03 19:33] LABS: Mucous, Urine 0 SEEN /hpf (<or=2+); White Blood Cells 0 SEEN /hpf (0-5)
[2023-08-03 19:47] LABS: Color, Urine Yellow (Yellow); Glucose, Dipstick Normal (Normal); Ketone-Dipstick Negative (Negative); Leukocyte Esterase-Dipstick Negative /ul (Negative); Nitrite-Dipstick Negative (Negative); Occult Blood-Urine Negative /ul (Negative); Protein-Dipstick Negative (Negative); Specific Gravity, Urine 1.025 (1.002-1.030); Urine Bilirubin Dipstick Negative (Negative); Urine Clarity Sl. Cloudy (Clear); Urine Urobilinogen Normal (Normal)
[2023-08-03 20:12] LABS: Bacteria RARE /hpf (None Seen); Red Blood Cells-Urine 0-5 SEEN /hpf (0-5); Squamous Epithelial Cells - UA 0-5 SEEN /hpf (5-10)
== END | disposition home or self-care (01) ==
PROVIDERS: PCP Internal Medicine; Referring Provider Internal Medicine; Visit Provider Internal Medicine
DX: R10.9 Unspecified abdominal pain (principal)
CPT/HCPCS: 81001

== ENCOUNTER → 2023-08-14 | Outpatient (CLI) | payer OTHER, SELFPAY ==
--- NOTE | 2023-08-14 07:16 | US_ITS ---
STUDY: ABDOMINAL ULTRASOUND - LEFT UPPER QUADRANT REASON FOR EXAM: Female, 53 years old. Left Flank Pain and abdominal pain -- -- LUQ TECHNIQUE: Transabdominal ultrasound was performed with real-time and static gonzalez scale imaging. TECHNICAL QUALITY: Adequate. COMPARISON: None. FINDINGS: Spleen: Normal size of the spleen. The spleen measures 8.8 cm x 4.7 cm x 4.4 cm. Left Kidney: Normal size of the left kidney. The left kidney measures 9.8 cm x 3.8 cm x 4.4 cm. Normal renal cortex. The left cortex measures 1.1 cm. There is no demonstrated renal mass or cyst. There is no left hydronephrosis. US/Abdomen Limited IMPRESSION: Normal left upper quadrant abdominal ultrasound examination. Electronically Signed: Chidi Rosenbaum MD at 14:05 EDT ,
== END | disposition home or self-care (01) ==
LOC: US 07:15
PROVIDERS: PCP Internal Medicine; Referring Provider Internal Medicine; Visit Provider Internal Medicine
DX: R10.9 Unspecified abdominal pain (principal)
CPT/HCPCS: 76705

== ENCOUNTER → 2023-09-08 | Outpatient (CLI) | payer OTHER, SELFPAY ==
[2023-09-08 09:10] LABS: Hematocrit 38.8 % (37-47); Hemoglobin 13.2 g/dL (12.0-15.0); Mean Corpuscular Hgb 31.1 pg (27.0-32.0); Mean Corpuscular Volume 91.3 fL (81-99); Mean Platelet Vol. 9.5 fl (6.2-12.0); Platelet Count 222 K/mm3 (150-450); RBC Distribution Width CV 12.1 % (11.6-14.6); RBC Distribution Width SD 40.3 fl (35.1-43.9); Red Blood Count 4.25 M/mm3 (4.2-5.4); White Blood Count 4.2 K/mm3 (4.4-11.0)
[2023-09-08 09:37] LABS: Internal QC Validated? YES +Cl - CLEAR BKGD; Pregnancy, Serum, hCG Quali. NEGATIVE Negative; Record Kit Lot#, Serum Preg. 7725476
[2023-09-08 09:46] LABS: ALB/GLOB Ratio 1.3 RATIO (0.9-2.4); AST(SGOT) 16 U/L (15-37); Alanine Aminotransfer ALT/SGPT 18 U/L (13-56); Albumin, Serum 3.8 g/dL (3.2-5.0); Alkaline Phosphatase 64 U/L (45-117); Anion Gap 4 (5-15); BUN 6 mg/dL (7-18); BUN/Creat Ratio 7.5 RATIO (10-20); Calcium,Total 8.8 mg/dL (8.5-10.1); Chloride 109 mmol/L (98-107); EST Glomerular Filtration Rate 81 mL/min (>60); Est Glom Filt Rate - Afr Amer 98 mL/min (>60); Globulin 2.9 g/dL (2.2-4.2); Glucose 97 mg/dL (74-106); Potassium 3.8 mmol/L (3.5-5.1); Protein, Total 6.7 g/dL (6.4-8.2); Sodium Level 142 mmol/L (136-145)
--- NOTE | 2023-09-09 07:46 | PCM.TILTTABL ---
Staff Staff: Kimberly Llaens and Ciera Shelton Summary Pre Test Resting HR: 82 Pre Test Resting BP: 116/83 Minimum Test HR: 72 Maximum Test HR: 151 Minimum Test BP: 108/84 Maximum Test BP: 132/90 Reason for Test Termination: Reached Maximum Test Time Physician Tilt Table Report Patient's Physicians Primary Care Physician: Vijay Davila Indications/Diagnosis: Dizziness and presyncope Procedure Comments: Patient was brought to the noninvasive lab in the fasting state. Informed consent was obtained. Initial blood pressure and heart rate was obtained. EKG demonstrated sinus rhythm with a rate of 82 bpm initial blood pressure was 116/83. The patient was then placed in the 70 degree head upright tilt position with a heart rate climbing 214 bpm and the blood pressure staying at 117/82 mmHg. Heart rate persistently remained elevated over 110 for least another 10 minutes with a blood pressure remaining over 100 systolic. Patient complained of hands tingling and some clammy feeling. No EKG changes were noted. After approximately 29 minutes patient heart rate remained above 130 bpm. The patient was then put in the recumbent position with improvement in the heart rate to the mid 80s. 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 POTS
[2023-09-09 07:49] VITALS: BP 108/84; BP 116/83; BP 132/90
== END | disposition home or self-care (01) ==
LOC: CVS 08:52
PROVIDERS: PCP Internal Medicine; Referring Provider Psychiatry & Neurology Neurology; Visit Provider Psychiatry & Neurology Neurology
DX: G90.A Postural orthostatic tachycardia syndrome [POTS] (principal)
CPT/HCPCS: 36415; 80053; 84703; 85027; 93660; J7040; A4216

== ENCOUNTER → 2024-02-26 | Outpatient (CLI) | payer OTHER, SELFPAY ==
[2024-02-26 10:26] LABS: Absolute Lymphocyte Count 1.15 X10^3/uL (0.83-4.51); Absolute Neutrophil Count 2.7 X10^3/uL (2.0-7.7); Basophil# 0.02 X10^3/uL; Basophil% 0.5 % (0-1); Eosinophil# 0.06 X10^3/uL; Eosinophils% 1.4 % (0-5); Hematocrit 39.4 % (37-47); Hemoglobin 13.8 g/dL (12.0-15.0); Lymphocyte # 1.15 X10^3/ul (0.83-4.51); Lymphocyte % 26.7 % (19-41); Mean Corpuscular Hgb 30.7 pg (27.0-32.0); Mean Corpuscular Volume 87.6 fL (81-99); Mean Platelet Vol. 10.2 fl (6.2-12.0); Monocyte# 0.41 X10^3/uL; Monocyte% 9.5 % (0-10); NRBC Flagged by Analyzer 0 % (0-5); Neutrophil # 2.65 X10^3/uL (2.7-7.7); Neutrophil % 61.7 % (47-70); Platelet Count 197 K/mm3 (150-450); RBC Distribution Width CV 11.9 % (11.6-14.6); RBC Distribution Width SD 38.2 fl (35.1-43.9); White Blood Count 4.3 K/mm3 (4.4-11.0)
[2024-02-26 11:23] LABS: Anion Gap 4 (5-15); BUN 6 mg/dL (7-18); BUN/Creat Ratio 6.3 RATIO (10-20); Calcium,Total 8.7 mg/dL (8.5-10.1); Chloride 106 mmol/L (98-107); Creatinine, Serum 0.95 mg/dL (0.55-1.02); EST Glomerular Filtration Rate 65 mL/min (>60); Est Glom Filt Rate - Afr Amer 79 mL/min (>60); Glucose 106 mg/dL (74-106); Potassium 3.8 mmol/L (3.5-5.1); Sodium Level 135 mmol/L (136-145)
== END | disposition home or self-care (01) ==
LOC: LAB 09:07
PROVIDERS: PCP Internal Medicine; Referring Provider Internal Medicine; Visit Provider Internal Medicine
DX: K59.09 Other constipation (principal); R00.0 Tachycardia, unspecified
CPT/HCPCS: 36415; 80048; 85025

== ENCOUNTER → 2024-03-21 | Outpatient (CLI) | payer OTHER, SELFPAY ==
--- NOTE | 2024-03-21 11:03 | BI_ITS ---
MAMMOGRAPHY - BILATERAL SCREENING REASON FOR EXAM: Female, 53 years old. Routine annual screening examination. PERTINENT HISTORY: Grandmother with breast cancer. Aunt with breast cancer. TECHNIQUE: Digital bilateral breast adalgisa (3D mammographic acquisition) in the CC and MLO projections. 2-D mediolateral oblique (MLO) and craniocaudad (CC) views of both breasts were obtained. CAD: Full Field Digital Mammography with Computer Added Detection was performed. COMPARISON: Comparison is made with prior study dated November 27, 2022 and November 19, 2021. FINDINGS: Breast Composition: The breasts are heterogeneously dense, which may obscure small masses. There are no dominant masses or suspicious calcifications. Stable small bilateral axillary lymph nodes. No other significant abnormalities are identified. There has been no significant change since the prior study. BI/SCRN MAMM (CAD)W/ADALGISA BILAT IMPRESSION: Stable bilateral screening mammogram. Yearly follow-up mammogram recommended. (A) ASSESSMENT CATEGORY: BIRADS Category 2: Benign. A letter regarding these results will be sent to the patient by the facility within 30 days. Approximately 10% of breast cancers are not detected by mammography. A normal mammogram should not delay biopsy of a clinically suspicious abnormality. [id number] Electronically Signed: Chidi Rosenbaum MD at 13:46 EST ,
== END | disposition home or self-care (01) ==
PROVIDERS: PCP Internal Medicine; Referring Provider Internal Medicine; Visit Provider Internal Medicine
DX: Z12.31 Encounter for screening mammogram for malignant neoplasm of breast (principal)
CPT/HCPCS: 77063; 77067

== ENCOUNTER → 2024-11-03 | Outpatient (CLI) | payer OTHER, SELFPAY ==
[2024-11-03 13:25] LABS: Follicle Stimulating Hormone 70.1 mIU/mL
[2024-11-06 01:07] LABS: Anti-Mullerian Hormone,Serum < 0.015 ng/mL (.)
== END | disposition home or self-care (01) ==
PROVIDERS: PCP Internal Medicine; Referring Provider Nurse Practitioner Family; Visit Provider Nurse Practitioner Family
DX: N95.1 Menopausal and female climacteric states (principal)
CPT/HCPCS: 36415; 82670; 83001; 83516

== ENCOUNTER → 2024-11-14 | Outpatient (CLI) | payer OTHER, SELFPAY ==
[2024-11-14 14:34] LABS: AST(SGOT) 24 U/L (<=31); Alanine Aminotransfer ALT/SGPT 17 U/L (<=34); Albumin, Serum 4.3 g/dL (3.5-5.0); Alkaline Phosphatase 79 U/L (35-104); Anion Gap 10 (5-15); BUN 12 mg/dL (4-19); BUN/Creat Ratio 12.4 RATIO (10-20); Calcium,Total 8.9 mg/dL (7.6-11.0); Carbon Dioxide 25.1 mmol/L (21.0-32.0); Chloride 108 mmol/L (98-108); Globulin 2.6 g/dL (2.2-4.2); Glucose 69 mg/dL (70-99); Potassium 3.6 mmol/L (3.3-5.1)
== END | disposition home or self-care (01) ==
LOC: LAB 12:42
PROVIDERS: PCP Internal Medicine; Referring Provider Nurse Practitioner Family; Visit Provider Nurse Practitioner Family
DX: Z51.81 Encounter for therapeutic drug level monitoring (principal)
CPT/HCPCS: 36415; 80053

== ENCOUNTER → 2025-02-24 | Outpatient (CLI) | payer OTHER, SELFPAY ==
--- NOTE | 2025-02-24 11:40 | RAD_ITS ---
EXAM: XR Lumbosacral Spine, 2 or 3 Views CLINICAL INDICATION: PAIN TECHNIQUE: Frontal and lateral views of the lumbar spine and sacrum. COMPARISON: No relevant prior studies available. FINDINGS: VERTEBRAE: Mild endplate degenerative changes and facet arthropathy of L4-S1. No acute fracture. Normal alignment. SACRUM/COCCYX: Unremarkable as visualized. No acute fracture. DISC SPACES: No acute findings. No significant narrowing. SOFT TISSUES: Unremarkable. RAD/Lumbar Spine 2 or 3 Views IMPRESSION: Degenerative changes as above. Reading Location: [id number]
--- OUTSIDE RECORDS SUMMARY | 2025-02-24 11:43 | XMS RPT_ITS | CCD ---
Author Organization [facility] Care Team Providers Care Check Writer Name Role Phone ROBYN JO Unavailable Unavailable ROBYN JO Unavailable Unavailable ROSALINDA MARROQUIN Unavailable Unavail able FERCHO SMITH (MEDICAL DIAGNOSTIC RADIOGRAPHER) Unavailable Unavailable YUAN MALCOLM Unavailable Unavailable ROBYN JO Unavailable Unavailable ROBYN JO Unavailable Unavailable Dr. Tu Davila Primary Care Provider [phone] Dr. Tu Davila Referring Provider [phone] Kb SNOW, RAFIAC Yuan Attending Provider [phone] Dr. Tu Davila Primary Care Provider [phone] Dr. Tu Davila Referring Provider [phone] Dr. Robyn Jo Attending Provider [phone] Dr. Tu Davila Primary Care Provider [phone] Dr. Tu Davila Attending Provider [phone] Dr. Tu Davila Referring Provider [phone] Dr. Tu Davila Primary Care Provider [phone] Dr. uT Davila Attending Provider [phone] Dr. Tu Davila Referring Provider [phone] ELIDA Davalos Attending Provider [phone] Dr. Linwood Serrano Attending Provider [phone] Dr. Fabrice Frye Attending Provider Dr. Tu Davila MD Primary Care Provider Dr. Tu Davila MD Attending Provider [phone] Dr. Tu Davila MD Referring Provider [phone] TU DAVILA MD Primary Care Physician ([phone] Olivia Hook Attending Provider [phone] Olivia Hook Referring Provider [phone] MORENA BARRERA DO Attending Unavailable TU DAVILA MD B Primary Care Unavailab le Oleghe, Efewongbe Primary Care Unavailable Oleghe, Efewongbe Attending Unavailable Oleghe, Efewongbe Referring Unavailable Oleghe, Efewongbe Referring Unavailable Oleghe, Efewongbe Primary Care Unavailable Olivia Gamez Attending Unavailable Oleghe, Efewongbe Attending Unavailable Oleghe, Efewongbe Referring Unavailable Oleghe, Efewongbe Primary Care Unavailable Oleghe, Efewongbe Primary Care Unavailable Olivia Gamez Attending Unavailable Olivia Gamez Referring Unavailable Baddour, Fabrice Referring Unavailable Oleghe, Efewongbe Primary Care Unavailable BaddourFabrice Attending Unavailable Oleghe, Efewongbe Primary Care Unavailable Oleghe, Efewongbe Attending Unavailable Oleghe, Efewongbe Referring Unavailable Baddour, Fabrice Attending Unavailable Baddour, Fabrice Referring Unavailable Oleghe, Efewongbe Primary Care Unavailable Oleghe, Efewongbe Primary Care Unavailable Olivia Gamez Attending Unavailable Olivia Gamez Referring Unavailable Oleghe, Efewongbe Attending Unavailable Oleghe, Efewongbe Referring Unavailable Oleghe, Efewongbe Primary Care Unavailable Lola LAGUNA, Dr. Linares Primary Care Physician Dr. Tu Davila MD Attending Physician [phone] Olivia Hook Attending Physician [phone] Allergies Allergy Classification Reported Allergen(s) Allergy Type Date of Onset Reaction(s) Facility (13 sources) codeine; Translations: [CODEINE] Drug Allergy 05-07-2005 Unknown [facility] Comment on above: hives? (2 sources) lactase; Translations: [LACTASE] Drug Allergy 05-07-2005 [facility] (2 sources) lubiprostone; Translations: [LUBIPROSTONE] Drug Allergy 2009 [facility] (9 sources) Lactose Drug Allergy 08-14-2021 other [facility] Comment on above: upset stomach (1 source) Lactose Drug Allergy 11-03-2024 [facility] Medications Current Medications Medication Drug Class(es) Dates Sig (Normalized) Sig (Original) BuPROPion (Eqv-Zyban Advantage Pack) 150 mg/12 hours oral tablet, extended release (1 source) Start: 10-28-2024 take 1 tablet by mouth every hour BuPROPion (Eqv-Zyban Advantage Pack) 150 mg/12 hours oral tablet, extended release 0 Refill(s) Start Date: 10/28/24 Status: Ordered Medication Dispense Status: Completed Total Allowed Fills: 1 Fills Dispensed: 0 Fezolinetant (1 source) Start: 11-16-2024 take 1 tablet by mouth once daily fludrocortisone acetate 0.1 mg oral tablet (13 sources) Start: 10-28-2024 fludrocortisone 0.1 mg oral tablet 0 Refill(s) Start Date: 10/28/24 Status: Ordered Medication Dispense Status: Completed Total Allowed Fills: 1 Fills Dispensed: 0 Start: 10-08-2023 End: 05-02-2024 take 1 tablet by mouth once in the morning Fludrocortisone 0.1 mg tablet Discontinued 0 .ROUTE .COMPLEX 15 5 February 02, 2024 9:27am May 02, 2024 10:49am Take 1 tablet orally in the morning every Thursday, Thursday, and Thursday linaclotide 0.29 mg oral capsule (20 sources) Guanylate Cyclase-C Agonist Start: 09-08-2020 take 1 dose by mouth once daily Linzess Oral, qDay, 0 Refill(s) Start Date: 09/08/20 Status: Ordered Medication Dispense Status: Completed Total Allowed Fills: 1 Fills Dispensed: 0 Start: 01-18-2018 End: 11-14-2024 take 1 capsule by mouth once daily Start: 10-19-2017 End: 01-18-2018 take 1 capsule by mouth once daily Linaclotide 145 mcg capsule Discontinued 145 ug PO daily 30 3 October 19, 2017 9:15am January 18, 2018 9:22am Start: 09-14-2017 End: 10-19-2017 take 1 capsule by mouth once daily Linaclotide 72 mcg capsule Discontinued 72 ug PO daily 30 2 September 14, 2017 12:00am October 19, 2017 8:46am Lopressor 25mg--USE metoprolol tartrate 25 mg oral tablet (1 source) Start: 10-28-2024 Lopressor 25mg --USE metoprolol tartrate 25 mg oral tablet 0 Refill(s) Start Date: 10/28/24 Status: Ordered Medication Dispense Status: Completed Total Allowed Fills: 1 Fills Dispensed: 0 metoprolol tartrate 25 mg oral tablet (20 sources) beta-Adrenergic Harsh Start: 05-27-2024 Start: 02-26-2024 End: 05-27-2024 take 1 tablet by mouth twice daily Metoprolol Tartrate 25 mg tablet Discontinued 25 mg PO TWICE A DAY 180 90 February 26, 2024 9:30am May 27, 2024 4:38pm Start: 10-19-2023 End: 02-26-2024 Metoprolol Tartrate 25 mg ta blet Discontinued 12.5 mg PO TWICE A DAY 90 1 October 19, 2023 1:26pm February 26, 2024 9:31am Start: 10-08-2023 End: 10-19-2023 take 1 tablet by mouth twice daily Metoprolol Tartrate 25 mg tablet Discontinued 25 mg PO TWICE A DAY 60 5 October 08, 2023 8:48am October 19, 2023 1:26pm Start: 02-03-2023 End: 10-08-2023 Metoprolol Tartrate 25 mg ta blet Discontinued 12.5 mg PO TWICE A DAY 60 July 20, 2023 1:11pm October 08, 2023 8:50am Start: 02-03-2023 End: 04-16-2023 take 12.5 mg by mouth twice daily Metoprolol Tartrate Active 12.5 MG PO TWICE A DAY 60 April 16, 2023 7:52pm topiramate 100 mg oral table t (20 sources) Start: 05-02-2024 take 1 tablet by mouth at bedt osvaldo Start: 02-02-2024 End: 05-02-2024 take 1 tablet by mouth at bedtime Topiramate 50 mg tablet Discontinued 50 mg PO AT BEDTIME 90 February 02, 2024 9:29am May 02, 2024 10:48am Start: 06-30-2023 End: 02-02-2024 take 1 tablet by mouth once daily Topiramate 25 mg tablet Discontinued 25 mg PO DAILY 30 October 08, 2023 8:48am February 02, 2024 9:28am Completed/Discontinued Medications Medication Drug Class(es) Dates Sig (Normalized) Sig (Original) amitriptyline hydrochloride 10 mg oral tablet (20 sources) Tricyclic Antidepressant Start: 02-26-2018 End: 12-05-2018 take 2 tablets by mouth at bedtime Amitriptyline 10 mg tablet Discontinued 20 mg PO AT BEDTIME 180 September 15, 2018 8:23am December 05, 2018 10:33am Start: 02-26-2018 End: 12-05-2018 take 20 mg by mouth at bedtime Amitriptyline Discontin ued 20 MG PO AT BEDTIME 180 September 15, 2018 8:23am December 05, 2018 10:33am Start: 01-29-2018 End: 02-26-2018 take 1 tablet by mouth at bedtime Amitriptyline 10 mg tablet Discontinued 10 mg PO AT BEDTIME 30 February 24, 2018 12:50pm February 26, 2018 9:42am amoxicillin 500 mg oral capsule (9 sources) Penicillin-class Antibacterial Start: 11-21-2017 End: 12-01-2017 take 1 capsule by mouth twice daily Amoxicillin 500 mg capsule Discontinued 500 mg PO TWICE A DAY 20 November 21, 2017 12:00am November 30, 2017 12:00am December 01, 2017 12:07am amoxicillin 875 mg / clavulanate 125 mg oral tablet (9 sources) Penicillin-class Antibacterial Start: 12-05-2018 End: 12-15-2018 Amoxicillin-Pot Clavulanate 875-125 mg tablet Discontinued 1 {tbl} PO Q12H 20 10 December 05, 2018 12:00am December 14, 2018 12:00am December 15, 2018 12:07am Start: 12-05-2018 End: 12-15-2018 take 1 tablet by mouth every twelve hours Amoxicillin-Pot Clavulanate Discontinued 1 TABLET PO Q12H 20 December 05, 2018 12:00am December 15, 2018 12:07am apixaban 5 mg oral tablet (20 sources) Factor Xa Inhibitor Start: 10-19-2017 End: 04-08-2021 take 1 tablet by mouth twice daily Apixaban 5 mg tablet Discontinued 5 mg PO TWICE A DAY 180 3 January 15, 2021 10:18am January 22, 2021 9:33am Start: 07-15-2017 End: 10-19-2017 take 2 tablets by mouth twice daily, then take 1 tablet by mouth twice daily Apixaban 5 MG tablet Discontinued 5 mg PO TWICE A DAY 90 0 July 15, 2017 12:00am October 19, 2017 9:17am Take 10 mg twice a day for 7 days then take 5 mg twice daily until complete. Start: 07-15-2017 End: 10-19-2017 take 10 mg by mouth twice daily, then take 5 mg by mouth twice daily Apixaban Discontinued 5 MG PO TWICE A DAY July 15, 2017 12:00am October 19, 2017 9:17am Take 10 mg twice a day for 7 days then take 5 mg twice daily until complete. 12 hr buPROPion hydrochloride 150 mg extended release oral tablet (20 sources) Aminoketone Start: 06-06-2022 End: 06-14-2024 take 1 tablet by mouth twice daily Bupropion Hcl 150 mg tablet sustained-release 12 hr Discontinued 150 mg PO TWICE A DAY 180 0 May 27, 2024 4:37pm June 14, 2024 12:37pm calcium carbonate 1250 mg chewable tablet (9 sources) Start: 11-21-2017 End: 04-29-2019 take 1 tablet by mouth twice daily Calcium Carbonate (Calci-Chew) 500 mg calcium (1,250 mg) tablet,chewable Discontinued 500 mg PO TWICE A DAY November 21, 2017 12:00am April 29, 2019 9:25am esomeprazole 40 mg delayed release oral capsule (18 sources) Proton Pump Inhibitor Start: 08-03-2019 End: 01-10-2020 take 1 capsule by mouth once daily Esomeprazole Magnesium 40 mg capsule,delayed release(DR/EC) Discontinued 40 mg PO DAILY 90 August 03, 2019 12:00am January 10, 2020 9:09am Start: 05-02-2019 End: 05-04-2019 take 1 capsule by mouth once daily Esomeprazole Magnesium 40 mg capsule,delayed release(DR/EC) Discontinued 40 mg PO DAILY 90 May 02, 2019 1:00am May 04, 2019 2:22pm methocarbamol 500 mg oral tablet (5 sources) Muscle Relaxant Start: 04-30-2023 End: 06-30-2023 take 1 tablet by mouth every six hours Methocarbamol 500 mg tablet Discontinued 500 mg PO EVERY 6 HOURS 30 0 April 30, 2023 1:00am June 30, 2023 9:46am multivitamin capsule (5 sources) Start: 09-14-2017 End: 01-18-2018 take 1 capsule by mouth once daily in the morning multivitamin capsule Discontinued 1 CAP PO EVERY MORNING September 13, 2017 11:00pm January 18, 2018 8:11am Start: 09-14-2017 End: 01-18-2018 take 1 capsule by mouth once daily in the morning multivitamin capsule Discontinued 1 CAP PO EVERY MORNING September 14, 2017 12:00am January 18, 2018 9:11am Multivitamin capsule (4 sources) Start: 09-14-2017 End: 01-18-2018 Multivitamin capsule Discontinued 1 NMA PO EVERY MORNING September 14, 2017 12:00am January 18, 2018 9:11am omeprazole 40 mg delayed release oral capsule (18 sources) Proton Pump Inhibitor Start: 05-04-2019 End: 08-03-2019 take 1 capsule by mouth once daily Omeprazole 40 mg capsule,delayed release(DR/EC) Discontinued 40 mg PO DAILY 90 May 04, 2019 1:00am August 03, 2019 2:19pm Start: 04-29-2019 End: 05-02-2019 take 1 capsule by mouth once daily Omeprazole 40 mg capsule,delayed release(DR/EC) Discontinued 40 mg PO DAILY 90 April 29, 2019 1:00am May 02, 2019 5:47pm ondansetron 4 mg oral tablet (16 sources) Serotonin-3 Receptor Antagonist Start: 08-20-2023 End: 05-02-2024 take 1 tablet by mouth three times daily as needed for nausea and vomiting Ondansetron Hcl 4 mg tablet Discontinued 4 mg PO THREE TIMES A DAY as needed for nausea and vomiting 90 4 February 02, 2024 9:29am May 02, 2024 10:49am potassium chloride 20 meq extended release oral tablet (5 sources) Start: 07-01-2023 End: 07-08-2023 take 1 tablet by mouth once daily Potassium Chloride 20 mEq tablet extended release Discontinued 20 meq PO DAILY 7 7 0 July 01, 2023 12:00am July 07, 2023 12:00am July 08, 2023 12:06am rimegepant 75 mg disintegrating oral tablet (12 sources) Start: 10-08-2023 End: 05-02-2024 take 1 tablet by mouth once daily as needed for headache Rimegepant (Nurtec Odt) 75 mg tablet,disintegra ting Discontinued 75 mg PO DAILY as needed for migraine headache 16 February 02, 2024 9:28am May 02, 2024 10:49am rivaroxaban 20 mg oral tablet (20 sources) Factor Xa Inhibitor Start: 04-08-2021 End: 11-02-2024 take 1 tablet by mouth once daily at dinner Rivaroxaban (Xarelto) 20 mg tablet Discontinued 0 .ROUTE .COMPLEX 90 May 10, 2024 12:56pm November 02, 2024 2:18pm TAKE 1 TABLET BY MOUTH EVERY DAY - MUST ADMINISTER WITH EVENING MEAL sulfamethoxazole 800 mg / trimethoprim 160 mg oral tablet (9 sources) Dihydrofolate Reductase Inhibitor Antibacterial, Sulfonamide Antimicrobial Start: 12-15-2019 End: 01-10-2020 Sulfamethoxazole- Trimethoprim 800-160 mg tablet Discontinued 1 {tbl} PO TWICE A DAY December 15, 2019 12:00am January 10, 2020 9:08am Start: 12-15-2019 End: 01-10-2020 take 1 tablet by mouth twice daily Sulfamethoxazole-Trimethoprim Discontinu ed 1 TABLET PO TWICE A DAY December 15, 2019 12:00am January 10, 2020 9:08am SUMAtriptan 50 mg oral tablet (20 sources) Serotonin-1b and Serotonin-1d Receptor Agonist Start: 06-30-2023 End: 10-08-2023 take 1 tablet by mouth every two hours as needed for headache, then take 2 tablets by mouth once daily as needed for headache Sumatriptan Succinate 50 mg tablet Discontinued 50 mg PO .COMPLEX 9 5 September 21, 2023 10:46am October 08, 2023 8:49am Take 1 tablet orally every two hours as needed for headache up to two tablets per day Start: 06-20-2020 End: 06-30-2023 Sumatriptan Succinate 25 mg tablet Discontinued 0 .ROUTE .COMPLEX 12 1 August 14, 2022 1:06pm January 30, 2023 9:27am TAKE 1 TAB AT ONSET OF HEADACHE IF NO RELIEF MAY REPEAT 1 TAB AFTER AT LEAST 2 HRS MAX = 4 TABS/24 HR Start: 01-29-2018 End: 04-29-2019 take 1 tablet by mouth once daily Sumatriptan Succinate 25 mg tablet Discontinued 0 PO .COMPLEX 10 0 September 06, 2018 10:13am April 29, 2019 9:25am take 1 tab at onset of headache; if no relief may repeat 1 tab in 2hr; max = 4 tabs/day (24hr) PO Problems Active Problems Problem Classification Problem Date Documented Da te Episodic/Chronic Abdominal pain (4 sources) Flank pain; Translations: [Unspecified abdominal pain] 08-04-2023 Episodic Comment on above: Left Flank Pain Cardiac dysrhythmias (9 sources) Postural orthostatic tachycardia syndrome ; Translations: [Postural orthostatic tachycardia syndrome] 06-30-2023 Chronic Coagulation and hemorrhagic disorders (9 sources) Factor V Leiden mutation; Translations: [Activated protein C resistance] 01-18-2018 Chronic Conditions associated with dizziness or vertigo (8 sources) Dizziness; Translations: [Dizziness and giddiness] 01-30-2023 Episodic Esophageal disorders (9 sources) Gastroesophageal reflux disease; Translations: [Gastro-esophageal reflux disease without esophagitis] 01-10-2020 Chronic Fluid and electrolyte disorders (5 sources) Hypokalemia; Translations: [Hypokalemia] 07-01-2023 Episodic Headache; including migraine (20 sources) Migraine; Translations: [Migraine, unspecified, not intractable, without status migrainosus] Onset: 5 Chronic Headache; including migraine (10 sources) Headache; Translations: [Headache] Onset: 5 01-18-2018 Episodic Headache; including migraine (1 source) Headache; including migraine; Translations: [Headache, unspecified] Onset: 5 Immunizations and screening for infectious disease (18 sources) Contact with or exposure to other viral diseases; Translations: [Exposure to COVID-19 virus] 11-02-2020 Episodic Menopausal disorders (10 sources) Menopausal symptom; Translations: [Menopausal and female climacteric states] Onset: 5 10-21-2024 Chronic Mood disorders (15 sources) Major depressive disorder; Translations: [Major depressive disorder, single episode, unspecified] 06-06-2022 Chronic Nonspecific chest pain (9 sources) Chest pain; Translations: [Chest pain, unspecified] 06-19-2020 Episodic Nutritional deficiencies (6 sources) Vitamin deficiency; Translations: [Vitamin deficiency, unspecified] 06-06-2022 Episodic Other aftercare (1 source) Encounter for therapeutic drug level monitoring; Translations: [Encounter for therapeutic drug level monitoring] Onset: 5 Episodic Other connective tissue disease (4 sources) Pain in right arm; Translations: [Pain in right arm] 02-02-2024 Episodic Other female genital disorders (1 source) Abnormal uterine and vaginal bleeding, unspecified; Translations: [Abnormal uterine and vaginal bleeding, unspecified] Onset: 7 Chronic Other gastrointestinal disorders (9 sources) Irritable bowel syndrome; Translations: [Irritable bowel syndrome without diarrhea] 08-31-2017 Chronic Other gastrointestinal disorders (12 sources) Chronic constipation; Translations: [Other constipation] 09-14-2017 Episodic Other injuries and conditions due to external causes (2 sources) Injury of head; Translations: [Unspecified injury of head, initial encounter] Onset: 5 Episodic Other injuries and conditions due to external causes (1 source) Unspecified injury of head, initial encounter; Translations: [Unspecified injury of head, initial encounter] Onset: 5 Episodic Other lower respiratory disease (9 sources) Dyspnea on exertion; Translations: [Other forms of dyspnea] 06-19-2020 Episodic Other lower respiratory disease (9 sources) Dyspnea; Translations: [Dyspnea, unspecified] 03-24-2021 Episodic Other non-traumatic joint disorders (2 sources) Pain in right hip; Translations: [Pain in joint, pelvic region and thigh] Onset: 7 01-30-2023 Episodic Other non-traumatic joint disorders (9 sources) Hip pain; Translations: [Pain in right hip] 09-14-2017 Episodic Other non-traumatic joint disorders (6 sources) Multiple joint pain; Translations: [Pain in unspecified joint] 06-06-2022 Episodic Other nutritional; endocrine; and metabolic disorders (9 sources) Overweight in adulthood with body mass index of 25 or more but less than 30; Translations: [Body mass index (BMI) 25.0-25.9, adult] 03-12-2021 Episodic Other screening for suspected conditions (not mental disorders or infectious disease) (12 sources) Patient encounter status; Translations: [Encounter for screening for malignant neoplasm, site unspecified] Onset: 01-30-2022 Episodic Comment on above: Empower results NEGA TIVE Other skin disorders (9 sources) Lesion of skin of face; Translations: [Disorder of the skin and subcutaneous tissue, unspecified] 08-14-2021 Episodic Other skin disorders (2 sources) Disorder of the skin and subcutaneous tissue, unspecified; Translations: [Unspecified disorder of skin and subcutaneous tissue] Episodic Other upper respiratory disease (9 sources) Seasonal allergy; Translations: [Other seasonal allergic rhinitis] 08-31-2017 Chronic Other upper respiratory infections (9 sources) Sinusitis; Translations: [Chronic sinusitis, unspecified] 03-15-2021 Chronic Other upper respiratory infections (9 sources) Upper respiratory infection; Translations: [Acute upper respiratory infection, unspecified] 02-26-2018 Episodic Pulmonary heart disease (12 sources) H/O: pulmonary embolus; Translations: [Personal history of pulmonary embolism] 06-18-2020 Episodic Residual codes; unclassified (3 sources) Influenza-like symptoms; Translations: [Other general symptoms and signs] Episodic Residual codes; unclassified (6 sources) Viral syndrome; Translations: [Other general symptoms and signs] 06-18-2020 Episodic Spondylosis; intervertebral disc disorders; other back problems (6 sources) Backache; Translations: [Dorsalgia, unspecified] 04-30-2023 Episodic Urinary tract infections (9 sources) Urinary tract infectious disease; Translations: [Urinary tract infection, site not specified] 06-18-2020 Episodic Viral infection (9 sources) Disease caused by 2019-nCoV; Translations: [COVID-19] 03-16-2021 Episodic Past or Other Problems Problem Classification Problem Date Documented Da te Episodic/Chronic Benign neoplasm of uterus (1 source) Leiomyoma of uterus, unspecified; Translations: [Leiomyoma of uterus, unspecified] Onset: 08-21-2016 Episodic Cardiac dysrhythmias (16 sources) ECG: sinus tachycardia; Translations: [Tachycardia, unspecified] Onset: 02-26-2024 06-19-2020 Episodic Malaise and fatigue (7 sources) Fatigue; Translations: [Other fatigue] Onset: 05-26-2024 06-06-2022 Episodic Other circulatory disease (1 source) Postural orthostatic tachycardia syndrome ; Translations: [Postural orthostatic tachycardia syndrome [POTS]] Onset: 05-26-2024 Episodic Other connective tissue disease (1 source) Pain in right arm; Translations: [Pain in right arm] Onset: 05-26-2024 Episodic Other gastrointestinal disorders (2 sources) Other constipation; Translations: [Constipation, unspecified] Onset: 03-24-2024 01-30-2023 Episodic Unclassified (9 sources) Acute segmental right lower lobe PE 12-06-2021 Unclassified (9 sources) Neck/Back Pain 09-25-2021 Results Test Name Value Interpretation Reference Range Facility Anion gap in Serum or Plasma Ordered By: Olivia Gamez on 11-14-2024 Anion gap [Moles/Vol] 10 mmol/L 07-14 [facility] BUN/creatinine ratioOrdered By: Olivia Gamez on 11-14-2024 Urea nitrogen/Creatinine [Mass ratio] 12.4 mg/mg 12-19 [facility] Bilirubin, totalOrdered By: Olivia Gamez on 11-14-2024 Bilirubin [Mass/Vol] 0.58 mg/dL 0.00-1.30 [facility] Carbon dioxide, total [Moles /volume] in Central venous bloodOrdered By: Olivia Gamez on 11-14-2024 CO2 [Moles/Vol] 25.1 mmol/L 21.0-32.0 [facility] Chloride assayOrdered By: Paz Gamez on 11-14-2024 Chloride [Moles/Vol] 108 mmol/L 98-108 [facility] Comprehensive Metabolic Prof ilon 11-14-2024 Albumin [Mass/Vol] 4.3 g/dL Normal 3.5-5.0 [facility] Comment on above: Performed By: #### L 052.0575 #### [facility] [address] [place], [address] Albumin/Globulin [Mass ratio] 1.7 {ratio} Normal 0.9-2.4 [facility] Comment on above: Performed By: #### L [id number] #### [facility] [address] [place], [address] ALK PHOS 79 U/L Normal 35-104 [facility] Comment on above: Performed By: #### L [id number] #### [facility] [address] [place], [address] ALT [Catalytic activity/Vol] 17 U/L Normal <=34 [facility] Comment on above: Performed By: #### L [id number] #### [facility] [address] [place], [address] AST [Catalytic activity/Vol] 24 U/L Normal <=31 [facility] Comment on above: Performed By: #### L [id number] #### [facility] [address] [place], [address] Bilirubin [Mass/Vol] 0.58 mg/dL Normal 0.00-1.30 [facility] Comment on above: Performed By: #### L [id number] #### [facility] [address] [place], [address] BUN/CRE 12.4 RATIO Normal 10-20 [facility] Comment on above: Performed By: #### L [id number] #### [facility] [address] [place], [address] Calcium [Mass/Vol] 8.9 mg/dL Normal 7.6-11.0 [facility] Comment on above: Performed By: #### L [id number] #### [facility] [address] [place], [address] Chloride [Moles/Vol] 108 mmol/L Normal 98-108 [facility] Comment on above: Performed By: #### L [id number] #### [facility] [address] [place], [address] CO2 [Moles/Vol] 25.1 mmol/L Normal 21.0-32.0 [facility] Comment on above: Performed By: #### L [id number] #### [facility] [address] [place], [address] Creatinine [Mass/Vol] 0.95 mg/dL Normal 0.70-1.20 [facility] Comment on above: Performed By: #### L [id number] #### [facility] [address] [place], [address] GAP 10 Normal 5-15 [facility] Comment on above: Performed By: #### L [id number] #### [facility] [address] [place], [address] GFR/1.73 sq M.predicted among non-blacks MDRD (S/P/Bld) [Vol rate/Area] 72 mL/min/{1.73_m2} Normal >60 [facility] Comment on above: Result Comment: mL/m in/1.73m2 CKD-EPI Creatinine Equation (2020) Performed By: #### L [id number] #### [facility] [address] [place], [address] Globulin (S) [Mass/Vol] 2.6 g/dL Normal 2.2-4.2 [facility] Comment on above: Performed By: #### L 500.4050 #### [facility] [address] [place], [address] Glucose [Mass/Vol] 69 mg/dL Low 70-99 [facility] Comment on above: Performed By: #### L 500.4050 #### [facility] [address] [place], [address] Potassium [Moles/Vol] 3.6 mmol/L Normal 3.3-5.1 [facility] Comment on above: Performed By: #### L 500.4050 #### [facility] [address] [place], [address] Sodium [Moles/Vol] 143 mmol/L Normal 133-145 [facility] Comment on above: Performed By: #### L 500.4050 #### [facility] [address] [place], [address] T PROT 6.8 g/dL Normal 5.9-8.4 [facility] Comment on above: Performed By: #### L 500.4050 #### [facility] [address] [place], [address] Urea nitrogen [Mass/Vol] 12 mg/dL Normal 4-19 [facility] Comment on above: Performed By: #### L 500.4050 #### [facility] [address] [place], [address] Glomerular filtration rate ( GFR) estimation/1.73 sq m using serum, plasma, or whole bOrdered By: Olivia Gamez on 11-14-2024 GFR/1.73 sq M.predicted among non-blacks MDRD (S/P/Bld) [Vol rate/Area] 72 mL/min/{1.73_m2} >60 [facility] Comment on above: mL/min/1.73m2 CKD-EP I Creatinine Equation (2020) Laboratory - Chemistry and C hemistry - challengeOrdered By: Olivia Gamez on 11-14-2024 AST [Catalytic activity/Vol] 24 U/L <32 [facility] Potassium measurement (mass/ volume)Ordered By: Olivia Gamez on 11-14-2024 Potassium (Unsp spec) [Mass/Vol] 3.6 mmol/L 3.3-5.1 [facility] Serum creatinine measurement (mass/volume)Ordered By: Olivia Gamez on 11-14-2024 Creatinine [Mass/Vol] 0.95 mg/dL 0.70-1.20 [facility] Serum globulin measurementOr dered By: Olivia Gamez on 11-14-2024 Globulin (S) [Mass/Vol] 2.6 g/dL 2.2-4.2 [facility] Serum glucose measurement (m ass/volume)Ordered By: Olivia Gamez on 11-14-2024 Glucose [Mass/Vol] 69 mg/dL Low 70-99 [facility] Serum or plasma alanine gaona otransferase (ALT) measurementOrdered By: Olivia Gamez on 11-14-2024 ALT [Catalytic activity/Vol] 17 U/L <35 [facility] Serum or plasma albumin sussy urement (mass/volume)Ordered By: Olivia Gamez on 11-14-2024 Albumin [Mass/Vol] 4.3 g/dL 3.5-5.0 [facility] Serum or plasma albumin/glob ulin mass ratioOrdered By: Olivia Gamez on 11-14-2024 Albumin/Globulin [Mass ratio] 1.7 {ratio} 0.9-2.4 [facility] Serum or plasma alkaline nohelia sphatase measurementOrdered By: Olivia Gamez on 11-14-2024 ALP [Catalytic activity/Vol] 79 U/L 35-104 [facility] Serum or plasma calcium sussy urement (mass/volume)Ordered By: Olivia Gamez on 11-14-2024 Calcium [Mass/Vol] 8.9 mg/dL 7.6-11.0 [facility] Serum or plasma urea nitroge n measurement (mass/volume)Ordered By: Olivia Gamez on 11-14-2024 Urea nitrogen [Mass/Vol] 12 mg/dL 4-19 [facility] Sodium levelOrdered By: Jessi Gamez on 11-14-2024 Sodium [Moles/Vol] 143 mmol/L 133-145 [facility] Total proteinOrdered By: Cj Gamez on 11-14-2024 Protein [Mass/Vol] 6.8 g/dL 5.9-8.4 [facility] Antimullerian Hormone, Serum on 11-06-2024 AMH, SERUM < 0.015 Normal . [facility] Comment on above: Result Comment: For assays employing antibodies, the possibility exists for interference by heterophile antibodies in the samples.1 1.Chin Wright Interferences in Immunoassays - still a threat. Clin. Chem. 2000; 46: 0283-5066. This test was developed and its performance characteristics determined by [employer]. It has not been cleared or approved by the Food and Drug Administration. Reference Range: Females 47 - 54y: <= 0.82 Median <0.03 AMH concentrations of >= 1.06 ng/mL is correlated with a better response to ovarian stimulation, produced more retrievable oocytes and higher odds of live according to Fazal et al. Fertility and Sterility. 2010: 94:0639-9296. The current AMH test method correlates with the study method with a slope of 0.94. Females at risk of ovarian hyperstimulation syndrome or polycystic ovarian syndrome (PCOS) may exhibit elevated serum AMH concentrations. AMH levels from PCOS patients may be 2 to 5 fold higher than age-appropriate reference interval values. Granulosa cell tumors of the ovary may secrete AMH along with other tumor markers. Elevated AMH is not specific for malignancy, and the assay should not be used exclusively to diagnose or exclude an AMH-secreting ovarian tumor. Performed at: [employer] [address] [place] [id number] Raking Machine Operator: Sandy Zavala MD, Phone: [phone] Performed By: #### L 2279.0684, P3029.3946, L186.0467 #### [facility] [address] [place] [address]. [place], [address] Estradiolon 11-03-2024 ESTRADIOL < 5.0 Normal [facility] Comment on above: Result Comment: FEMA LES ADULT FEMALE: Premenopausal: 15-350 pg/mL(E2 levels vary widely through the menstrual cycle) Postmenopausal: <10 pg/mL SELVIN STAGES MEAN AGE REFERENCE RANGES Stage I(>14 days and prepubertal) 7.1 years Undetectable-20 pg/mLL Stage II 10.5 years Undetectable-24 pg/mL Stage III 11.6 years Undetectable-60 pg/mL Stage IV 12.3 years 15-85 pg/mL Stage V 14.5 years 15-350 pg/mL Puberty onset (transition from Selvin stage I to Selvin stage II) occurs for girls at a median age of 10.5 (/- 2) years. There is evidence that it may occur up to 1 year earlier in obese girls and in girls. Progression through Selvin stages is variable. Selvin stage V (adult) should be reached by age 18. Performed By: #### L 3300.1750, L3100.5125, L803.3000 #### [facility] [address] [place], [address] Follicle Stimulating Hormone on 11-03-2024 FSH 70.1 mIU/mL Normal [facility] Comment on above: Result Comment: FEMA LE: Follicular: 1.4 - 18.1 mIU/mL Midcycle: 3.4 - 33.4 mIU/mL Luteal: 1.5 - 9.1 mIU/mL Post Menopause: 23.0 - 116.3 mIU/mL MALE: 1.4 - 18.1 mIU/mL Performed By: #### L 3300.1750, L3100.5125, L803.3000 #### [facility] [address] [place], [place], [address] Print Inspector Office Visit Reporton 11-03-2024 Print Inspector Office Visit Report [facility] [address], [address] [place] [address] OFFICE VISIT Date of Service: 11/03/24 MR#: [id number] Acct: [id number] Name: DEE HUDSON Rep #: [id number] : 1970 Provider: ARMAND Smith Age/Sex: 54/F [place] [facility] [place]: Signed Intake Vital Signs 10/21/24 07:46 11/03/24 08:26 Height 5 ft 5 in 5 ft 5 in Weight: 139 lb 6 oz 143 lb 2 oz BMI 23.1 23.8 BP 106/70 114/76 Blood Pressure Location Lt brachial Position Sitting Respiration 16 Pulse 83 Pulse Source Monitor Temp 96.3 F L Pulse Oximetry (%) 97 Oxygen Delivery Method room air Intake Visit Reasons: 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) Associate Consulting Engineer Required: No Is patient in pain?: No Allergies lactose Allergy (Severe, Verified 11/03/24 08:28) other codeine Adverse Reaction (Unknown, Verified 11/03/24 08:28) Unknown Medications ???Medication ???Instructions ???Recorded ???Confirmed ???Type fludrocortisone 0.1 mg tablet See Rx Instructions .Route 5 11/03/24 Rx .COMPLEX #15 tabs ondansetron HCl 4 mg tablet 4 mg PO TID PRN nausea and 5 11/03/24 Rx vomiting #90 tabs rimegepant 75 mg disintegrating 75 mg PO DAILY PRN migraine 11/03/24 Rx tablet (Nurtec ODT) headache #16 tabs topiramate 100 mg tablet 100 mg PO QHS #30 tabs 05/02/24 Rx linaclotide 290 mcg capsule 290 mcg PO QDAY #90 caps 05/10/24 11/03/24 Rx metoprolol tartrate 25 mg tablet 12.5 mg (1/2 x 25 mg) PO BID #90 0 05/27/24 11/03/24 Rx TABLETS bupropion HCl 150 mg tablet,12 hr 150 mg PO BID #180 ea 06/14/24 Rx sustained-release rivaroxaban 20 mg tablet (Xarelto) 20 mg PO QPM #90 TABLETS 5 11/03/24 Rx Is last menstrual period known: No Post menopausal: No Patient : No : No Control Method: [facility] Medical History Menopausal symptoms Depression Flank pain Tachycardia Dizziness MDD (major depressive disorder) Vitamin deficiency Fatigue Multiple joint pain Skin lesion of face Sinusitis History of sigmoidoscopy History of endometrial biopsy Factor 5 Leiden mutation, heterozygous Anemia Neck/Back Pain Chest pain Severe headache Shortness of breath History of hemorrhoids Migraines IBS (irritable bowel syndrome) Seasonal allergies Acute segmental right lower lobe PE Surgical History S/P LEEP S/P colonoscopy Status post colposcopy History of hip surgery History of tubal ligation History of tonsillectomy History of cholecystectomy History of hysterectomy Family History Mother Hypertension Father Hypertension Grandfather Myocardial infarction Heart disease Grandmother Breast cancer Diabetes Alzheimer disease Aunt Breast cancer Social History Smoking Status: Former smoker alcohol intake: never substance use type: does not use caffeine: Yes what type of physical activity do you participate in: none additional social history: 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 Date Name GA/Weeks Outcome Route Bth Weight Gen Labor Lgth Anesthesia Del Locatn Provider FOB Unknown x 3 HPI Encounter for routine gynecological examination Details: DEE HUDSON is a 54 year old who presents for annual exam. She reports she has had hot flashes, night sweats, and irritability. She has history of hysterectomy however still has ovaries. Has not had lab work thus far to confirm. Last PAP: hyst History of abnormal PAP: no Last mammogram: 2024; normal History of abnormal mammogram: no Colon cancer screening: utd per pt; 2022; obtains every 5 years d/t polyp. Other preventative health care screenings: Dr. Davila. Female Reproductive History Questions: metrorrhagia: No, sexually active: Yes, dyspareunia: No and PCB: No Menopausal Symptoms: Yes hot flashes, Yes night sweats, Yes weight change, Yes mood changes, No difficulty concentrating, Yes sleep problems and No change in libido Menopausal Treatment: No HRT, No Vaginal Estrogen, No Osphena, No OTC treatments and No prescription non-hormonal treatment ROS Const Constitutional: Reports night sweats; Denies chills, fatigue, fever(s), headache(s) or weight loss Eyes Eyes: Denies change in vision ENT ENT: Denies dizziness Cardio Card: Denies chest pain at rest or palpitations Resp Resp: Denies cough or dyspnea GI GI: Rep (more content not included)... Normal [facility] Serum or plasma estradiol me asurement after follitropin dose (mass/volume)Ordered By: Olivia Gamez on 11-03-2024 E2 post dose follitropin [Mass/Vol] < 5.0 pg/mL [facility] Comment on above: FEMALES ADULT FEMALE : Premenopausal: 15-350 pg/mL(E2 levels vary widely through the menstrual cycle) Postmenopausal: <10 pg/mL SELVIN STAGES MEAN AGE REFERENCE RANGES Stage I(>14 days and prepubertal) 7.1 years Undetectable-20 pg/mLL Stage II 10.5 years Undetectable-24 pg/mL Stage III 11.6 years Undetectable-60 pg/mL Stage IV 12.3 years 15-85 pg/mL Stage V 14.5 years 15-350 pg/mL Puberty onset (transition from Selvin stage I to Selvin stage II) occurs for girls at a median age of 10.5 (/- 2) years. There is evidence that it may occur up to 1 year earlier in obese girls and in girls.Progression through Selvin stages is variable. Selvin stage V (adult) should be reached by age 18. Serum or plasma flecainide m easurement (mass/volume)Ordered By: Olivia Gamez on 11-03-2024 Flecainide [Mass/Vol] < 0.015 ng/mL . [facility] Comment on above: For assays employing antibodies, the possibility exists forinterference by heterophile antibodies in the samples.11.Chin Wright Interferences in Immunoassays - still a threat. Clin. Chem. 2000; 46: 1531-2619.This test was developed and its performance characteristicsdetermined by [employer]. It has not been cleared or approvedby the Food and Drug Administration.Reference Range:Females 47 - 54y: <= 0.82Median <0.03AMH concentrations of >= 1.06 ng/mL is correlated with abetter response to ovarian stimulation, produced moreretrievable oocytes and higher odds of live accordingto Fazal et al. Fertility and Sterility. 2010:94:6162-0938. The current AMH test method correlates withthe study method with a slope of 0.94.Females at risk of ovarian hyperstimulation syndrome orpolycystic ovarian syndrome (PCOS) may exhibit elevatedserum AMH concentrations. AMH levels from PCOS patientsmay be 2 to 5 fold higher than age-appropriate referenceinterval values.Granulosa cell tumors of the ovary may secrete AMH alongwith other tumor markers. Elevated AMH is not specific formalignancy, and the assay should not be used exclusively todiagnose or exclude an AMH-secreting ovarian tumor.Performed at: [facility] [id number] [place], [place] [id number] Director: Sandy Zavala MD, Phone: [phone] CT HEAD OR BRAIN W/O JENNIFER Ton 10-28-2024 CT HEAD OR BRAIN W/O CONTRAST ORIGINAL EXAMINATION: CT OF THE HEAD WITHOUT CONTRAST; CT OF THE FACE WITHOUT CONTRAST 10/28/2024 7:22 pm; 10/28/2024 7:25 pm TECHNIQUE: CT of the head was performed without the administration of intravenous contrast. Automated exposure control, iterative reconstruction, and/or weight based adjustment of the mA/kV was utilized to reduce the radiation dose to as low as reasonably achievable.; CT of the face was performed without the administration of intravenous contrast. Multiplanar reformatted images are provided for review. Automated exposure control, iterative reconstruction, and/or weight based adjustment of the mA/kV was utilized to reduce the radiation dose to as low as reasonably achievable. COMPARISON: None. HISTORY: ORDERING SYSTEM PROVIDED HISTORY: Reason for Exam: Head trauma, coagulopathy ; Facial trauma, blunt; ORDERING SYSTEM PROVIDED HISTORY: Reason for Exam: Facial trauma, blunt FINDINGS: CT HEAD: BRAIN/VENTRICLES: There is no acute intracranial hemorrhage, mass effect or midline shift. No abnormal extra-axial fluid collection. The gonzalez-white differentiation is maintained without evidence of an acute infarct. There is no evidence of hydrocephalus. CT FACIAL BONES: FACIAL BONES: The maxilla, pterygoid plates and zygomatic arches are intact. The mandible is intact. The mandibular condyles are normally situated. The nasal bones and maxillary nasal processes are intact. ORBITS: The globes appear intact. The extraocular muscles, optic nerve sheath complexes and lacrimal glands appear unremarkable. No retrobulbar hematoma or mass is seen. The orbital victoria and rims are intact. SINUSES/MASTOIDS: Mucous retention cyst in right maxillary sinus, otherwise the paranasal sinuses and mastoid air cells are well aerated. No acute fracture is seen. IMPRESSION: No acute intracranial abnormality. No acute traumatic injury of the facial bones. I have personally reviewed the images of this examination and agree with the resident's findings and interpretation. Interpreted by: Simon Zhao Preliminary Report By: Valente Howell Electronically signed By Simon Zhao Dictated Date: 10/28/2024 7:36:59 PM Prelim Date: 10/28/2024 7:41:36 PM Sign Date: 10/28/2024 7:44:07 PM Ordering Provider: JOEL WALKER [facility] CT MAXILLOFACIAL W/O CANDESKYLER Ton 10-28-2024 CT MAXILLOFACIAL W/O CONTRAST ORIGINAL EXAMINATION: CT OF THE HEAD WITHOUT CONTRAST; CT OF THE FACE WITHOUT CONTRAST 10/28/2024 7:22 pm; 10/28/2024 7:25 pm TECHNIQUE: CT of the head was performed without the administration of intravenous contrast. Automated exposure control, iterative reconstruction, and/or weight based adjustment of the mA/kV was utilized to reduce the radiation dose to as low as reasonably achievable.; CT of the face was performed without the administration of intravenous contrast. Multiplanar reformatted images are provided for review. Automated exposure control, iterative reconstruction, and/or weight based adjustment of the mA/kV was utilized to reduce the radiation dose to as low as reasonably achievable. COMPARISON: None. HISTORY: ORDERING SYSTEM PROVIDED HISTORY: Reason for Exam: Head trauma, coagulopathy ; Facial trauma, blunt; ORDERING SYSTEM PROVIDED HISTORY: Reason for Exam: Facial trauma, blunt FINDINGS: CT HEAD: BRAIN/VENTRICLES: There is no acute intracranial hemorrhage, mass effect or midline shift. No abnormal extra-axial fluid collection. The gonzalez-white differentiation is maintained without evidence of an acute infarct. There is no evidence of hydrocephalus. CT FACIAL BONES: FACIAL BONES: The maxilla, pterygoid plates and zygomatic arches are intact. The mandible is intact. The mandibular condyles are normally situated. The nasal bones and maxillary nasal processes are intact. ORBITS: The globes appear intact. The extraocular muscles, optic nerve sheath complexes and lacrimal glands appear unremarkable. No retrobulbar hematoma or mass is seen. The orbital victoria and rims are intact. SINUSES/MASTOIDS: Mucous retention cyst in right maxillary sinus, otherwise the paranasal sinuses and mastoid air cells are well aerated. No acute fracture is seen. IMPRESSION: No acute intracranial abnormality. No acute traumatic injury of the facial bones. I have personally reviewed the images of this examination and agree with the resident's findings and interpretation. Interpreted by: Simon Zhao Preliminary Report By: Valente Howell Electronically signed By Simon Zhao Dictated Date: 10/28/2024 7:36:59 PM Prelim Date: 10/28/2024 7:41:36 PM Sign Date: 10/28/2024 7:44:07 PM Ordering Provider: JOEL Tipton [facility] Internal Medicine Office Vis enid 10-21-2024 Internal Medicine Office Visit [facility] [address] [place] [address] OFFICE VISIT Date of Service: 10/21/24 MR#: [id number] Acct: [id number] Name: DEE HUDSON Rep #: [id number] : 1970 Provider: Dr. Tu posada MD Age/Sex: 54/F [place] [facility] [place]: Signed Intake Vital Signs 02/26/24 08:20 05/02/24 07:53 10/21/24 07:46 Height 5 ft 5 in 5 ft 5 in 5 ft 5 in Weight: 139 lb 6 oz BMI 23.1 BP 106/70 Blood Pressure Location Lt brachial Position Sitting Respiration 16 Pulse 83 Pulse Source Monitor Temp 96.3 F L Temp Source Temporal Pulse Oximetry (%) 97 Oxygen Delivery Method room air Intake Visit Reasons: 6 M FU Chief Complaint: Follow-up chronic conditions. Associate Consulting Engineer Required: No Accompanied by: Self Is patient in pain?: No Allergies lactose Allergy (Severe, Verified 10/21/24 07:41) other codeine Adverse Reaction (Unknown, Verified 10/21/24 07:41) Unknown Medications ???Medication ???Instructions ???Recorded ???Confirmed ???Type fludrocortisone 0.1 mg tablet See Rx Instructions .Route 5 10/21/24 Rx .COMPLEX #15 tabs ondansetron HCl 4 mg tablet 4 mg PO TID PRN nausea and 5 10/21/24 Rx vomiting #90 tabs rimegepant 75 mg disintegrating 75 mg PO DAILY PRN migraine 10/21/24 Rx tablet (Nurtec ODT) headache #16 tabs topiramate 100 mg tablet 100 mg PO QHS #30 tabs 05/02/24 Rx linaclotide 290 mcg capsule 290 mcg PO QDAY #90 caps 05/10/24 10/21/24 Rx rivaroxaban 20 mg tablet (Xarelto) See Rx Instructions .Route 05/1010/21/24 Rx .COMPLEX #90 tabs metoprolol tartrate 25 mg tablet 12.5 mg (1/2 x 25 mg) PO BID #90 0 05/27/24 10/21/24 Rx TABLETS bupropion HCl 150 mg tablet,12 hr 150 mg PO BID #180 ea 06/14/24 Rx sustained-release Nurse's Note: just coming off POTS flare up [facility] Medical History (Updated 10/21/24 @ 17:[address] Tu Davila MD) Menopausal symptoms Depression Flank pain Tachycardia Dizziness MDD (major depressive disorder) Vitamin deficiency Fatigue Multiple joint pain Skin lesion of face Sinusitis History of sigmoidoscopy History of endometrial biopsy Factor 5 Leiden mutation, heterozygous Anemia Neck/Back Pain Chest pain Severe headache Shortness of breath History of hemorrhoids Migraines IBS (irritable bowel syndrome) Seasonal allergies Acute segmental right lower lobe PE Surgical History S/P LEEP S/P colonoscopy Status post colposcopy History of hip surgery History of tubal ligation History of tonsillectomy History of cholecystectomy History of hysterectomy Family History Mother Hypertension Father Hypertension Grandfather Myocardial infarction Heart disease Grandmother Breast cancer Diabetes Alzheimer disease Aunt Breast cancer Social History Smoking Status: Former smoker alcohol intake: never substance use type: does not use caffeine: Yes what type of physical activity do you participate in: none additional social history: 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 Details: DEE HUDSON, is a 54-year-old female presenting with concerns related to POTS, menopausal symptoms, gluten sensitivity, and emotional numbness. The patient reports experiencing episodes characterized by dizziness, lightheadedness, excessive sweating, even without positional changes, not necessarily consistent with her history of POTS. She describes confusion in differentiating these episodes from menopausal symptoms, such as hot flashes, also characterized by sweating and feeling flushed. Additionally, the patient is uncertain whether certain symptoms are attributable to menopause or POTS. Plans to schedule with CHILD'S NURSE. Regarding gastrointestinal symptoms, the patient describes feeling extremely bloated after eating, resembling -like abdominal distention. Recently, dietary modifications following a reduced gluten intake have led to a noticeable improvement in bloating symptoms, although the patient expresses difficulty in avoiding gluten completely due to personal preference for carbohydrate-rich foods. The patient also reports significant emotional numbness, indicating a lack of emotional response to repeated stressful events and personal losses. Chronic history of depression currently on Wellbutrin which she has been taking and is compliant with. Has had significant stressors lately. Had been in therapy previously but due to scheduling conflicts has not had therapy since April. Other chronic medical conditions are stable. Attestatio (more content not included)... Normal [facility] Neurology Visit Reporton Neurology Visit Report [facility] [address], [address] [place] [address] OFFICE VISIT Date of Service: 05/02/24 MR#: [id number] Acct: [id number] Name: DEE HUDSON Rep #: [id number] : 1970 Provider: Dr. Fabrice xiong MD Age/Sex: 54/F [place] [facility] [place]: Signed HPI HPI Chief Complaint: Est Care Details: Interim History: Dee returns for follow-up visit. She has a history of irritable bowel syndrome, hysterectomy due to dysfunctional uterine bleeding, positive factor V Leiden, pulmonary embolism in 2018 (currently taking Xarelto). She has been experiencing headaches since her 20s. Her headaches have worsened in frequency and severity over time. Individual headaches have lasted from 1 to 2 days each. She has headaches about once per week generally (her headaches are less frequent during the summer months); last week she had more frequent headaches (she attributes this to weather change). Weather changes and emotional stress are triggers for her headaches. She describes her headaches as global throbbing headaches. Her headaches have, at times, been severe. Sumatriptan 50 mg was not of significant benefit for her headaches. Nurtec ODT has been of benefit for her headaches and has been well-tolerated. She experiences nausea occasionally with her headaches. Ondansetron is of benefit. She experiences phonophobia with her headaches. Topiramate 50 mg nightly has been of benefit for headache prophylaxis; her headaches are less severe than in the past. She is tolerating topiramate well. She has been experiencing some neck pain since the 2022. She has been experiencing intermittent low back pain since her 30s. She has some blurring of vision at her baseline. She wears glasses. She denied having any vision changes directly associated with her headaches. She denied having numbness or weakness. Since the latter part of 2023, she has had right upper arm and right shoulder region intermittent discomfort this has diminished; she is unaware of any clear precipitating event. She is experiencing some right hand pain. She is using a wrist splint and this has been of benefit for her right upper extremity symptoms. She has had positional lightheadedness and associated imbalance since around 2021. She denied having vertigo. She experiences some diaphoresis with rapid position change and also notes having tachycardia during these times. She also reported having a vague feeling of dizziness when she is lying flat. She takes metoprolol for her tachycardia however she continued to experience periods of tachycardia. Tilt table testing was positive for postural orthostatic hypotension syndrome (POTS). She is taking fludrocortisone and is no longer experiencing positional lightheadedness. She has depression and anxiety. She has had chronic right hip pain for which she underwent surgery in 2020 however she continued to experience right hip pain. Her hip surgery was not a hip joint replacement. Physical Exam: Neuro: The patient is awake and alert and responds appropriately; speech is fluent; motor strength is 5/5 in the right first dorsal interosseous, and right abductor pollicis brevis; there are no deficits to soft touch in the right middle finger and right fifth finger; she reports having numbness in the right index finger that she attributes to a prior crush injury Heart: Regular rate and rhythm Supplemental Info Cardiac echo (07/15/2017): The estimated ejection fraction is 65 %. Stage 1 diastolic dysfunction. Trivial mitral valve insufficiency. Trivial tricuspid valve insufficiency. Right ventricular systolic pressure estimated to be 26 mmHg. There is no comparison study available. Head CT (02/08/2018): FINDINGS: Normal soft tissue structures. Normal calvarium. Normal size ventricles and extra-axial spaces for the patient's age. Normal white matter tracts of the cerebral hemispheres. Normal basal ganglia and thalami. Normal brainstem. Normal cerebellum. There is no intracranial hemorrhage. There are no findings of an acute ischemic infarction. Normal visualized paranasal sinuses. IMPRESSION: Normal unenhanced and enhanced CT scan of the brain. These images were reviewed on 06/30/2023. EKG (03/16/2021): Normal sinus rhythm. Normal EKG. TSH, B12, vitamin D, lipid profile, CMP, C-reactive protein (06/02/2022): Triglycerides 99 (normal), cholesterol 216 (high), LDL 127 (normal), VLDL 20 (normal), HDL 69 (normal), B12 392 (near low end of normal range) CBC, BMP (01/30/2023): Unremarkable CBC, CMP, B12, folate (06/30/2023): Potassium 3.4 (low), total bilirubin 1.3 (high), B12 greater than 2000 (high) Head MRI (07/13/2023): FINDINGS: Normal bilateral temporal bones. Normal bilateral internal auditory canals. There is no demonstrated intracanalicular or cisternal vestibular schwannoma (acoustic neuroma). There is (more content not included)... Normal [facility] SCRN MAMM (CAD)W/ADALGISA BILATo n 03-21-2024 SCRN MAMM (CAD)W/ADALGISA BILAT [facility] Imaging Services [address] [place] [address] [id number] SCRN MAMM (CAD)W/ADALGISA BILAT MR#: [id number] Acct: [id number] Name: DEE HUDSON Rep #: [id number] : 1970 F 53 From: Chidi agosto MD PCP: Dr. Tu Davila MD Status: [facility] Study: SCRN MAMM (CAD)W/ADALGISA BILAT Date of Exam: 03/03 Exam# [id number] Ordering Dr: Tu Davila MD :[id number] MAMMOGRAPHY - BILATERAL SCREENING REASON FOR EXAM: Female, 53 years old. Routine annual screening examination. PERTINENT HISTORY: Grandmother with breast cancer. Aunt with breast cancer. TECHNIQUE: Digital bilateral breast adalgisa (3D mammographic acquisition) in the CC and MLO projections. 2-D mediolateral oblique (MLO) and craniocaudad (CC) views of both breasts were obtained. CAD: Full Field Digital Mammography with Computer Added Detection was performed. COMPARISON: Comparison is made with prior study dated November 27, 2022 and November 19, 2021. FINDINGS: Breast Composition: The breasts are heterogeneously dense, which may obscure small masses. There are no dominant masses or suspicious calcifications. Stable small bilateral axillary lymph nodes. No other significant abnormalities are identified. There has been no significant change since the prior study. BI/SCRN MAMM (CAD)W/ADALGISA BILAT IMPRESSION: Stable bilateral screening mammogram. Yearly follow-up mammogram recommended. (A) ASSESSMENT CATEGORY: BIRADS Category 2: Benign. A letter regarding these results will be sent to the patient by the facility within 30 days. Approximately 10% of breast cancers are not detected by mammography. A normal mammogram should not delay biopsy of a clinically suspicious abnormality. [id number] Electronically Signed: Chidi Rosenbaum MD at 13:46 EST Reading Location ID and State: [address] [place] [address] , Service support , CC: Dr. Tu Davila MD Pupil Personnel Services Director: Signed Normal [facility] Basic Metabolic Profile (BMP )on 02-26-2024 BUN/CRE 6.3 RATIO Low 12-19 [facility] Comment on above: Performed By: #### L 500.2500, L100.0100 #### [facility] [address] [place], [address] CA,Total 8.7 mg/dL Normal 8.5-10.1 [facility] Comment on above: Performed By: #### L 500.2500, L100.0100 #### [facility] [address] [place], [address] Chloride [Moles/Vol] 106 mmol/L Normal 98-107 [facility] Comment on above: Performed By: #### L 500.2500, L100.0100 #### [facility] [address] [place], [address] CO2 [Moles/Vol] 26.0 mmol/L Normal 21.0-32.0 [facility] Comment on above: Performed By: #### L 500.2500, L100.0100 #### [facility] [address] [place], [address] Creatinine [Mass/Vol] 0.95 mg/dL Normal 0.55-1.02 [facility] Comment on above: Result Comment: The validity of the calculated GFR GFRAA in patients over 70 years has not been determined. Clinical correlation is essential. Performed By: #### L 500.2500, L100.0100 #### [facility] [address] [place], [address] EST GFR - AA 79 mL/min Normal >60 [facility] Comment on above: Result Comment: Afri can [place] GFR Calc Performed By: #### L 500.2500, L100.0100 #### [facility] [address] [place], [address] GAP 4 Low 5-15 [facility] Comment on above: Performed By: #### L 500.2500, L100.0100 #### [facility] [address] [place], [address] GFR/1.73 sq M.predicted among non-blacks MDRD (S/P/Bld) [Vol rate/Area] 65 mL/min/{1.73_m2} Normal >60 [facility] Comment on above: Result Comment: Non- GFR Calc Performed By: #### L 500.2500, L100.0100 #### [facility] [address] [place], [address] Glucose [Mass/Vol] 106 mg/dL Normal 74-106 [facility] Comment on above: Result Comment: Fast ing Glucose result from 100 to 125 mg/dL suggests IMPAIRED HOMEOSTASIS per A.D.A. criteria. Performed By: #### L 500.2500, L100.0100 #### [facility] [address] [place], [address] Potassium [Moles/Vol] 3.8 mmol/L Normal 3.5-5.1 [facility] Comment on above: Performed By: #### L 500.2500, L100.0100 #### [facility] [address] [place], [address] Sodium [Moles/Vol] 135 mmol/L Low 136-145 [facility] Comment on above: Performed By: #### L 500.2500, L100.0100 #### [facility] [address] [place], [address] Urea nitrogen [Mass/Vol] 6 mg/dL Low 7-18 [facility] Comment on above: Performed By: #### L 500.2500, L100.0100 #### [facility] [address] [place], [address] CBC W/Diff, Automatedon 12-2 Absolute Lymph 1.15 X10 3/uL Normal 0.83-4.51 [facility] Comment on above: Performed By: #### L 500.2500, L100.0100 #### [facility] [address] [place], [address] Absolute Neut 2.7 X10 3/uL Normal 2.0-7.7 [facility] Comment on above: Performed By: #### L 500.2500, L100.0100 #### [facility] [address] [place], [address] Basophils/100 WBC (Bld) 0.5 % Normal 0-1 [facility] Comment on above: Performed By: #### L 500.2500, L100.0100 #### [facility] [address] [place], [address] Eosinophils/100 WBC (Bld) 1.4 % Normal 0-5 [facility] Comment on above: Performed By: #### L 500.2500, L100.0100 #### [facility] [address] [place], [address] Erythrocyte distribution width (RBC) [Ratio] 11.9 % Normal 11.6-14.6 [facility] Comment on above: Performed By: #### L 500.2500, L100.0100 #### [facility] [address] [place], [address] Hematocrit (Bld) [Volume fraction] 39.4 % Normal 37-47 [facility] Comment on above: Performed By: #### L 500.2500, L100.0100 #### [facility] [address] [place], [address] Hemoglobin (Bld) [Mass/Vol] 13.8 g/dL Normal 12.0-15.0 [facility] Comment on above: Performed By: #### L 500.2500, L100.0100 #### [facility] [address] [place], [address] IG% 0.200 Normal 0.0-0.9 [facility] Comment on above: Result Comment: IG% - Immature Granulocytes (promyelocytes, myelocytes and metamyelocytes) > 1% indicates that a LEFT SHIFT is Present. Performed By: #### L 500.2500, L100.0100 #### [facility] [address] [place], [address] Lymphocytes/100 WBC (Bld) 26.7 % Normal 19-41 [facility] Comment on above: Performed By: #### L 500.2500, L100.0100 #### [facility] [address] [place], [address] MCH (RBC) [Entitic mass] 30.7 pg Normal 27.0-32.0 [facility] Comment on above: Performed By: #### L 500.2500, L100.0100 #### [facility] [address] [place], [address] MCHC (RBC) [Mass/Vol] 35.0 g/dL Normal 32-36 [facility] Comment on above: Performed By: #### L 500.2500, L100.0100 #### [facility] [address] [place], [address] MCV (RBC) [Entitic vol] 87.6 fL Normal 81-99 [facility] Comment on above: Performed By: #### L 500.2500, L100.0100 #### [facility] [address] [place], [address] Monocytes/100 WBC (Bld) 9.5 % Normal 0-10 [facility] Comment on above: Performed By: #### L 500.2500, L100.0100 #### [facility] [address] [place], [address] Neutrophils/100 WBC (Bld) 61.7 % Normal 47-70 [facility] Comment on above: Performed By: #### L 500.2500, L100.0100 #### [facility] [address] [place], [address] Nucleated RBC (Bld) [#/Vol] 0 10*3/uL Normal 0-5 [facility] Comment on above: Performed By: #### L 500.2500, L100.0100 #### [facility] [address] [place], [address] Platelet mean volume (Bld) [Entitic vol] 10.2 fL Normal 6.2-12.0 [facility] Comment on above: Performed By: #### L 500.2500, L100.0100 #### [facility] [address] [place], [address] Platelets (Bld) [#/Vol] 197 10*3/uL Normal 150-450 [facility] Comment on above: Performed By: #### L 500.2500, L100.0100 #### [facility] [address] [place], [address] RBC (Bld) [#/Vol] 4.50 10*6/uL Normal 4.2-5.4 [facility] Comment on above: Performed By: #### L 500.2500, L100.0100 #### [facility] [address] [place], [address] RDW SD 38.2 fl Normal 35.1-43.9 [facility] Comment on above: Performed By: #### L 500.2500, L100.0100 #### [facility] [address] [place], [address] WBC (Bld) [#/Vol] 4.3 10*3/uL Low 4.4-11.0 [facility] Comment on above: Performed By: #### L 500.2500, L100.0100 #### [facility] [address] [place], [address] Internal Medicine Office Vis enid 02-26-2024 Internal Medicine Office Visit [facility] [address] [place] [address] [place] [address] OFFICE VISIT Date of Service: 02/26/24 MR#: [id number] Acct: [id number] Name: BECCADEE Rep #: [id number] : 1970 Provider: Dr. 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 Required: No Accompanied by: Self Is patient in pain?: No Allergies lactose Allergy (Severe, Verified 02/26/24 08:17) other codeine Adverse Reaction (Unknown, Verified 02/26/24 08:17) Unknown Medications ???Medication ???Instructions ???Recorded ???Confirmed ???Type fludrocortisone 0.1 mg tablet See Rx Instructions .Route 02/02/24 02/26/24 Rx .COMPLEX #15 tabs ondansetron HCl 4 mg tablet 4 mg PO TID PRN nausea and 02/02/24 02/26/24 Rx vomiting #90 tabs rimegepant 75 mg disintegrating 75 mg PO DAILY PRN migraine 02/02/24 02/26/24 Rx tablet (Nurtec ODT) headache #16 tabs topiramate 50 mg tablet 50 mg PO QHS #90 tabs 02/02/24 02/26/24 Rx linaclotide 290 mcg capsule 290 mcg PO QDAY #90 caps 02/15/24 02/26/24 Rx rivaroxaban 20 mg tablet (Xarelto) See Rx Instructions .Route 02/23/24 02/26/24 Rx .COMPLEX #90 tabs bupropion HCl 150 mg tablet,12 hr See Rx Instructions .Route 02/26/24 02/26/24 Rx sustained-release .COMPLEX #90 ea metoprolol tartrate 25 mg tablet 25 mg PO BID 3 months #180 TABLETS 02/26/24 02/26/24 Rx PFSH Medical History Depression Flank pain Tachycardia Dizziness MDD (major depressive disorder) Vitamin deficiency Fatigue Multiple joint pain Skin lesion of face Sinusitis History of sigmoidoscopy History of endometrial biopsy Factor 5 Leiden mutation, heterozygous Anemia Neck/Back Pain Chest pain Severe headache Shortness of breath History of hemorrhoids Migraines IBS (irritable bowel syndrome) Seasonal allergies Acute segmental right lower lobe PE Surgical History S/P LEEP S/P colonoscopy Status post colposcopy History of hip surgery History of tubal ligation History of tonsillectomy History of cholecystectomy History of hysterectomy Family History Mother Hypertension Father Hypertension Grandfather Myocardial infarction Heart disease Grandmother Breast cancer Diabetes Alzheimer disease Aunt Breast cancer Social History Smoking Status: Former smoker alcohol intake: never substance use type: does not use caffeine: Yes what type of physical activity do you participate in: none additional social history: 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 No acute concerns at this time. History of depression currently on Wellbutrin. She reports a rather stressful year. Lost her mother and has had other losses/stressors. She states that overall though, she is doing okay on current medication. Also history of factor V Leiden currently on Xarelto. No bleeding concerns reported. Taking her medication consistently. History of chronic constipation, currently on Linzess. Last colonoscopy was in 2022 and a 5-year follow-up was recommended. She states that she has a bowel movement once every 4 to 5 days. Occasional bloating/abdominal discomfort for the most part not. No dark or bloody stools. Continues to follow-up with neurology. Diagnosed with POTS. Recently started on fludrocortisone which she takes 3 days a week. She states that she feels symptomatically better when she does. ROS Const Constitutional: No body ache, chills, excessive sweating, fatigue, fever(s), frequent falls, headache(s), snoring, weakness or change in appetite Eyes Eyes: No blurry vision, change in vision, bulging eyes, floaters, visual disturbances, eye pain or Light sensitivity ENT ENT: No abnormal hearing, ear or mastoid pain, tinnitus, balance problems, nosebleed/epistaxis, nasal congestion, headache(s), neck pain or sore throat Resp Respiratory: No cough, excessive phlegm production, pain on inspiration, shortness of breath, snoring or wheezing Cardio Cardiology: No chest pain at rest, chest pain with exertion, excessive sweating, dyspnea on exertion, lightheadedness, orthopnea or palp (more content not included)... Normal [facility] Neurology Visit Reporton Neurology Visit Report [facility] [address], [address] [place] [address] OFFICE VISIT Date of Service: 02/02/24 MR#: [id number] Acct: [id number] Name: DEE HUDSON Rep #: [id number] : 1970 Provider: Dr. Fabrice xiong MD Age/Sex: 53/F [place] [facility] [place] Status: Signed HPI HPI Chief Complaint: Est Care Details: Interim History: Dee returns for follow-up visit. She has a history of irritable bowel syndrome, hysterectomy due to dysfunctional uterine bleeding, positive factor V Leiden, pulmonary embolism in 2018 (currently taking Xarelto). She has been experiencing headaches since her 20s. Her headaches have worsened in frequency and severity over time. Individual headaches have lasted from 1 to 7 days each. She has headaches about once per week (her headaches are less frequent during the summer months). Weather changes and emotional stress are triggers for her headaches. She describes her headaches as global throbbing headaches. Her headaches have, at times, been severe. Sumatriptan 50 mg was not of significant benefit for her headaches. Nurtec ODT has been of benefit for her headaches and has been well-tolerated. She experiences nausea occasionally with her headaches. Ondansetron is of benefit. She experiences phonophobia with her headaches. Topiramate 50 mg nightly has been of benefit for headache prophylaxis. She continues to experience headaches about once per week however her headaches have been of shorter duration (1 to 2 days each) and less severe. She has been experiencing some neck pain since the 2022. She has been experiencing intermittent low back pain since her 30s. She has some blurring of vision at her baseline. She wears glasses. She denied having any vision changes directly associated with her headaches. She denied having numbness or weakness. Over the past 1-1/2 weeks she has had right upper arm and right shoulder region intermittent discomfort; she is unaware of any clear precipitating event though she does state that she has performed vacuuming. She has been experiencing positional lightheadedness and associated imbalance since around 2021. She denied having vertigo. She experiences some diaphoresis with rapid position change and also notes having tachycardia during these times. She also reported having a vague feeling of dizziness when she is lying flat. She takes metoprolol for her tachycardia however she continues to experience periods of tachycardia. Tilt table testing was positive for postural orthostatic hypotension syndrome (POTS). She did not increase her dose of metoprolol to 25 mg 1 tablet twice daily. She is currently taking metoprolol 25 mg 1/2 tablet twice daily. She did not start fludrocortisone. She has depression and anxiety. She has irritable bowel syndrome and chronic constipation. She has been prescribed prescribed Linzess. She has had chronic right hip pain for which she underwent surgery in 2020 however she has continued to experience right hip pain. Her hip surgery was not a hip joint replacement. Physical Exam: Neuro: The patient is awake and alert and responds appropriately; speech is fluent; motor strength is 5/5 in the right deltoid, right triceps, right biceps, right first dorsal interosseous, and right abductor pollicis brevis; there are no deficits to soft touch in the right hand Extremities: Tinel's sign is negative at the right wrist and right elbow Supplemental Info Cardiac echo (07/15/2017): The estimated ejection fraction is 65 %. Stage 1 diastolic dysfunction. Trivial mitral valve insufficiency. Trivial tricuspid valve insufficiency. Right ventricular systolic pressure estimated to be 26 mmHg. There is no comparison study available. Head CT (02/08/2018): FINDINGS: Normal soft tissue structures. Normal calvarium. Normal size ventricles and extra-axial spaces for the patient's age. Normal white matter tracts of the cerebral hemispheres. Normal basal ganglia and thalami. Normal brainstem. Normal cerebellum. There is no intracranial hemorrhage. There are no findings of an acute ischemic infarction. Normal visualized paranasal sinuses. IMPRESSION: Normal unenhanced and enhanced CT scan of the brain. These images were reviewed on 06/30/2023. EKG (03/16/2021): Normal sinus rhythm. Normal EKG. TSH, B12, vitamin D, lipid profile, CMP, C-reactive protein (06/02/2022): Triglycerides 99 (normal), cholesterol 216 (high), LDL 127 (normal), VLDL 20 (normal), HDL 69 (normal), B12 392 (near low end of normal range) CBC, BMP (01/30/2023): Unremarkable CBC, CMP, B12, folate (06/30/2023): Potassium 3.4 (low), total bilirubin 1.3 (high), B12 greater than 2000 (high) Head MRI (07/13/2023): FINDINGS: Normal bilateral temporal bones. Normal bilateral internal auditory canals. There is no demonstrated intracanalicular or cisternal vestibular schwannoma (ac (more content not included)... Normal [facility] Basophil percentageOrdered B y: Fabrice Frye on 06-30-2023 Bilirubin [Mass/Vol] 1.30 mg/dL 0.20-1.00 [facility] Comment on above: For patients on eltr ombopag therapy, use of Dimension [place] TBIL is not recommended. Chloride [Moles/Vol] 104 mmol/L 98-107 [facility] Glucose [Mass/Vol] 95 mg/dL 74-106 [facility] Hemoglobin (Bld) [Mass/Vol] 14.5 g/dL 12.0-15.0 [facility] Potassium [Moles/Vol] 3.4 mmol/L 3.5-5.1 [facility] Protein [Mass/Vol] 7.1 g/dL 6.4-8.2 [facility] Sodium [Moles/Vol] 138 mmol/L 136-145 [facility] WBC (Bld) [#/Vol] 4.4 10*3/uL 4.4-11.0 [facility] Determination of erythrocyte mean corpuscular volume (MCV)Ordered By: Fabrice Frye on 06-30-2023 MCV (RBC) [Entitic vol] 92.0 fL 81-99 [facility] Erythrocyte distribution wid th ratioOrdered By: Fabrice Frye on 06-30-2023 Erythrocyte distribution width (RBC) [Ratio] 11.7 % 11.6-14.6 [facility] Erythrocyte distribution wid th standard deviationOrdered By: Fabrice Frye on 06-30-2023 Erythrocyte distribution width (RBC) [Entitic vol] 39.5 fL 35.1-43.9 [facility] Hematocrit Auto (Bld) [Volum e fraction]Ordered By: Fabrice Frye on 06-30-2023 Hematocrit (Bld) [Volume fraction] 41.6 % 37-47 [facility] - Chemistry and C hemistry - challengeOrdered By: Fabrice Frye on 06-30-2023 Albumin/Globulin [Mass ratio] 1.4 {ratio} 0.9-2.4 [facility] ALP [Catalytic activity/Vol] 70 U/L 45-117 [facility] ALT [Catalytic activity/Vol] 18 U/L 13-56 [facility] CO2 [Moles/Vol] 30.0 mmol/L 21.0-32.0 [facility] Globulin (S) [Mass/Vol] 3.0 g/dL 2.2-4.2 [facility] Urea nitrogen/Creatinine [Mass ratio] 8.1 mg/mg 10-20 [facility] - Hematology and Cell countsOrdered By: Fabrice Frye on 06-30-2023 MCH (RBC) [Entitic mass] 32.1 pg 27.0-32.0 [facility] MCHC (RBC) [Mass/Vol] 34.9 g/dL 32-36 [facility] Platelet mean volume (Bld) [Entitic vol] 10.3 fL 6.2-12.0 [facility] Platelets (Bld) [#/Vol] 230 10*3/uL 150-450 [facility] No Panel InformationOrdered By: Fabrice Frye on 06-30-2023 Estimated GFR (MDRD) Amer 88 mL/min >60 [facility] Comment on above: GFR Calc Estimated GFR (MDRD) Non-Af Amer 73 mL/min >60 [facility] Comment on above: Non- GFR Calc Folate 19.20 ng/mL 3.1-55.4 [facility] Vitamin B12 Level > 2000 pg/mL 211-911 [facility] RBC Auto (Bld) [#/Vol]Ordere d By: Fabrice Frye on 04-30-2024 RBC (Bld) [#/Vol] 4.52 10*6/uL 4.2-5.4 [facility] Serum or plasma calcium sussy urement (mass/volume)Ordered By: Fabrice Frye on 06-30-2023 Calcium [Mass/Vol] 8.9 mg/dL 8.5-10.1 [facility] Serum or plasma creatinine m easurement (mass/volume)Ordered By: Fabrice Frye on 06-30-2023 Creatinine [Mass/Vol] 0.87 mg/dL 0.55-1.02 [facility] [facility] Comment on above: The validity of the calculated GFR & GFRAA in patients over 70 years has not been determined. Clinical correlation is essential. Serum or plasma thiamine duane surement (mass/volume)Ordered By: Fabrice Frye on 06-30-2023 Thiamine [Mass/Vol] 121.4 nmol/L 66.5-200.0 [facility] Comment on above: Performed at: [address] [id number] Director: Monae Vazquez MD, Phone: [phone] Serum or plasma thyroid stim ulating hormone (TSH) measurement (units/volume)Ordered By: Fabrice Frye on 06-30-2023 TSH Qn 0.67 uIU/mL 0.358-3.74 [facility] Serum or plasma urea nitroge n measurement (mass/volume)Ordered By: Fabrice Frye on 06-30-2023 Urea nitrogen [Mass/Vol] 7 mg/dL 7-18 [facility] Thin prep Papanicolaou smear with manual screeningOrdered By: Fabrice Frye on 06-30-2023 Thin prep Papanicolaou smear with manual screening 4.1 g/dL 3.2-5.0 [facility] Thin prep Papanicolaou smear with manual screening 17 U/L 15-37 [facility] Thin prep Papanicolaou smear with manual screening 4 5-15 [facility] Absolute lymphocyte countOrd ered By: Tu Davila on 01-30-2023 Lymphocytes Auto (Unsp spec) [#/Vol] 1.53 10*3/uL 0.83-4.51 [facility] Basophil percentageOrdered B y: Tu Davila on 01-30-2023 Basophils/100 WBC (Bld) 0.9 % 0-1 [facility] Chloride [Moles/Vol] 107 mmol/L 98-107 [facility] Eosinophils/100 WBC (Bld) 2.6 % 0-5 [facility] Glucose [Mass/Vol] 102 mg/dL 74-106 [facility] Comment on above: Fasting Glucose resu lt from 100 to 125 mg/dL suggests IMPAIRED HOMEOSTASIS per A.D.A. criteria. Neutrophils (Bld) [#/Vol] 2.6 10*3/uL 2.0-7.7 [facility] Neutrophils/100 WBC (Bld) 55.7 % 47-70 [facility] Potassium [Moles/Vol] 4.0 mmol/L 3.5-5.1 [facility] Sodium [Moles/Vol] 139 mmol/L 136-145 [facility] WBC (Bld) [#/Vol] 4.6 10*3/uL 4.4-11.0 [facility] Blood erythrocytes count (nu mber/volume)Ordered By: Tu Davila on 01-30-2023 RBC (Bld) [#/Vol] 4.60 10*6/uL 4.2-5.4 [facility] Blood hemoglobin measurement (mass/volume)Ordered By: Tu Davila on 01-30-2023 Hemoglobin (Bld) [Mass/Vol] 14.4 g/dL 12.0-15.0 [facility] Blood lymphocytes/100 leukoc ytesOrdered By: Tu Davila on 01-30-2023 Lymphocytes/100 WBC (Bld) 33.4 % 19-41 [facility] Blood monocytes/100 leukocyt esOrdered By: Tu Davila on 01-30-2023 Monocytes/100 WBC (Bld) 7.0 % 0-10 [facility] Blood platelet mean volumeOr dered By: Tu Davila on 01-30-2023 Platelet mean volume (Bld) [Entitic vol] 10.1 fL 6.2-12.0 [facility] Determination of erythrocyte mean corpuscular volume (MCV)Ordered By: Tu Davila on 01-30-2023 MCV (RBC) [Entitic vol] 92.2 fL 81-99 [facility] Hematocrit Auto (Bld) [Volum e fraction]Ordered By: Tu Davila on 01-30-2023 Hematocrit (Bld) [Volume fraction] 42.4 % 37-47 [facility] - Chemistry and C hemistry - challengeOrdered By: Tu Davila on 01-30-2023 CO2 [Moles/Vol] 28.0 mmol/L 21.0-32.0 [facility] Urea nitrogen/Creatinine [Mass ratio] 13.8 mg/mg 10-20 [facility] - Hematology and Cell countsOrdered By: Tu Davila on 01-30-2023 Erythrocyte distribution width (RBC) [Entitic vol] 42.5 fL 35.1-43.9 [facility] Erythrocyte distribution width (RBC) [Ratio] 12.5 % 11.6-14.6 [facility] Immature granulocytes/100 WBC (Bld) 0.400 % 0.0-0.9 [facility] Comment on above: IG% - Immature Granu locytes (promyelocytes, myelocytes and metamyelocytes) > 1% indicates that a LEFT SHIFT is Present. MCH (RBC) [Entitic mass] 31.3 pg 27.0-32.0 [facility] Nucleated RBC/100 WBC (Bld) [Ratio] 0 % 0-5 [facility] MCHC Auto (RBC) [Mass/Vol]Or dered By: Tu Davila on 01-30-2023 MCHC (RBC) [Mass/Vol] 34.0 g/dL 32-36 [facility] No Panel InformationOrdered By: Tu Davila on 01-30-2023 Estimated GFR (MDRD) Amer 97 mL/min >60 [facility] Comment on above: GFR Calc Estimated GFR (MDRD) Non-Af Amer 80 mL/min >60 [facility] Comment on above: Non- GFR Calc Platelets bldOrdered By: Rico Davila on 01-30-2023 Platelets (Bld) [#/Vol] 247 10*3/uL 150-450 [facility] Serum or plasma calcium sussy urement (mass/volume)Ordered By: Tu Davila on 01-30-2023 Calcium [Mass/Vol] 8.5 mg/dL 8.5-10.1 [facility] Serum or plasma creatinine m easurement (mass/volume)Ordered By: Tu Davila on 01-30-2023 Creatinine [Mass/Vol] 0.80 mg/dL 0.55-1.02 [facility] Comment on above: The validity of the calculated GFR & GFRAA in patients over 70 years has not been determined. Clinical correlation is essential. Serum or plasma urea nitroge n measurement (mass/volume)Ordered By: Tu Davila on 01-30-2023 Urea nitrogen [Mass/Vol] 11 mg/dL - [facility] Thin prep Papanicolaou smear with manual screeningOrdered By: [facility] Davila on 01-30-2023 Thin prep Papanicolaou smear with manual screening 4 07-14 [facility] No Panel Informationon 01-14 Miscellaneous Test Comment MAILED SPECIMEN [facility] Work Phone: CNOVon 07-18-2017 [facility]OV Office Visit (FAMPWS) ----DEE HUDSON ([id number]) 1970 FDate Time Provider Department07/18/17 10:00 AM YUAN MALCOLMPWS During your visit today, we recorded the following information about you: Pulse Respiration Blood pressure Weight 16/minute 16/minute 128/62 74.7 kgYuan Malcolm MD 07/18/2017 10:45 AM SignedTransitional Care Management Progress NoteThe patients TCM visit was performed within the 7 days of discharge.Patient's Date of discharge: 07/15/17Date of initial coordinator contact afterdischarge: 07/16/17Discharge diagnosis: peMedication review completed Makenzie Adams LPNProvider Documentation:In follow-up of hospitalization, Dee Hudson is a 47 year old female withthe chief complaint of follow up PE.I have reviewed the patient?s last hospital course including diagnostic testingperformed during this hospitalization, their discharge medications, and myassessment and plan with the patient and any family members present at today?svisit.CARE MANAGEMENT (TCM)INITIAL CONTACTMedical Admissions Evaluator Outreach?Provider Action/FYI:TCM D/C from [facility] for acute segmental right lower lobe PE (acute). Message leftfor pt to call back to schedule hospital follow up.Called back and scheduled for 07/18/17 with PCP?Initial contact with patient post discharge, spoke to remarks: Message left forpt to call back to schedule appt.Patient identified by name and .?SUMMARY:-Pt discharged from [facility] on 07/15/17.-Admitted for:?1. Acute segmental right lower lobe PE (Acute)?2. Flu-like symptoms (Acute)?Do you have a hospital follow up appointment with your PCP?Appointment on 07/18/[address] Malcolm.No. Assist patient with follow-up appointment within 1-14 calendar days fromdischarge date. If patient prefers not to schedule follow-up appointment atthis time, notify PCP.?MEDICATIONS:Many patients have questions or concerns about their medications once they arehome.Were you prescribed any new medications?If yes, what are those medications? Eliquis 5 mg BID?Were you told to hold any medications?NoWere any of your medications discontinued?No?Do you have any questions about getting or taking your medications?No?Your discharge instructions/After visit Summary (AVS) are important in guidingyou through the recovery process. Is there anything I might help you understand?No? Do you have all the necessary equipment and supplies at home?Yes?Medical records from recent hospitalization:Placed for provider to reviewHas done OK since discharge; still some dizziness, slight cough. Was alsodiagnosed with viral illness. No chest pain or SOB. Tolerating Eliquis. TakesOTC motrin for headaches; cautioned about increased bleeding risk.Past medical history, appointments, medications, allergies reviewed.Previous Medical HistoryPAST MEDICAL HISTORYDiagnosis Date- Abnormal glandular Papanicolaou smear of cervix Abn. 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/11/2015 removed- Rectal bleedingPrevious Surgical HistoryPAST SURGICAL HISTORYProcedure Laterality Date- CERVIX UTERI CONIZA LP ELCTRO EXCI 2001 LEEP-Cervix- CHOLECYSTECTOMY 04/2009 Cholecystectomy- COLONOSCOP W/ OR W/O [facility] SPEC 07/11/2009 Colonoscopy- COLPOSCOPY (VAGINOSCOPY) Colposcopy- DRAPE,LAV-LAPAROSCOPY,72849 lav bilateral salpingectomy- LIGATE FALLOPIAN TUBE Tubal ligation- REMOVAL ADENOIDS,PRIMARY,<12 Y/O Adenoidectomy- REMOVAL OF TONSILS,<12 Y/O AGE 25 Tonsillectomy- SIGMOIDOSCOPY FLEX DIAG 04/2002 Sigmoidoscopy, flexibleFamily HistoryFAMILY HISTORYProblem Relation Age of Onset- Hypertension Maternal Grandmother- Alzheimer's Disease Maternal Grandmother- Breast Cancer Paternal Grandmother- Diabetes Paternal Grandmother- Heart Paternal Grandfather- Breast Cancer Paternal Aunt- Asthma Child daughterPatient AllergiesALLERGIESAllergen Reactions- Amitiza [Lubiprosto* Intolerance really bad stomach aches- Codeine- Lactose Intolerance*Current MedicationsCurrent Outpatient Prescriptions on File Prior to Visit:albuterol HFA (VENTOLIN HFA) 90 mcg/actuation inhaler Inhale 2 Puffs asinstructed every 4 hours as needed for Wheezing/Shortness of Breath.THERAPEUTIC MULTIVITAMIN TAB Take one(1) tablet daily.calcium carbonate/vitamin d3(CALTRATE-600 PLUS VITAMIN D3 600 MG-400 UNIT TAB)Take one(1) tablet two(2) times daily.oxyCODONE-acetaminophe n (PERCOCET) 5-325 mg tablet Take 1-2 tablets by mouthevery 4 hours as needed.naproxen (NAPROSYN) 500 mg tablet Take 1 tablet by mouth twice daily as needed.zolpidem (AMBIEN) 10 mg tab TAKE 1 TAB BY MOUTH AT BEDTIME NEEDED FORINSOMNIANo current facility-administered medications on file prior to visit.Social HistorySocial History Marital status: Spouse name: Brannon Years of education: 17 Number of children: 3Occupational 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*Social History Main Topics Smoking status: Former Smoker Packs/day: 0.50 Years: 3.50 Quit date: 03/08/2003 Smokeless tobacco: Never Used Alcohol use: Yes Comment: rare Drug use: No Sexual activity: Yes Partners with: Male control/protection: Tubal Ligation Comment: BTLEXAM:BP 128/62 (BP Site: Left Arm, BP Position: Sitting, BP Cuff Size: RegularAdult) Pulse (!) 16 Resp 16 Wt 74.7 kg (164 lb 9.6 oz) LMP07/23/2016 (Approximate) BMI 27.39 kg/m?General Appearance: Well appearing, alert, in no acute distress, well-hydrated,well nourished..Oropharynx: Lips, mucosa, and tongue normal, teeth and gums normal, oropharynxnormal.Neck: Supple, no adenopathy; thyroid symmetric, normal size, no bruits.Lungs: Lungs clear to auscultation. No wheezing, rhonchi, rales.Heart: RRR without murmur, gallop, or rubs. No ectopy.Health Maintenance ListONE PNEUMOVAX PRIOR TO AGE 65 due on 1991MAMMOGRAM due on 06/30/2017INFLUENZA(Season Ended) due on 10/31/2017LIPID SCREEN due on 12/03/2018DIABETES SCREEN due on 08/23/2019PAP EVERY 5 YEARS due on 03/29/2020HPV EVERY 5 YEARS due on 1DTAP,TDAP,TD(2 - Td) due on 2Data reviewedHosp recordsASSESSMENT/PLAN:1. Other acute pulmonary embolism without acute cor pulmonale (HCC) - ICD9:415.19, ICD10: I26.99Continue Eliquis; plan for 3 monthsAwaiting [facility] up in 2 monthsRenetta Altamirano Provider: SELF [[id number]]Allergies As of Date: 07/18/2017 Noted Allergy ReactionAMITIZA (LUBIPROSTONE) 2009 5 - Intolerance Comments: really bad stomach achesCODEINE 05/07/2005LACTOSE INTOLERANCE (LACTASE) 05/07/2005Date Reviewed: 07/18/2017Reviewed by: Leyda Adams LPN - Fully AssessedReason for Visit: ER F/U [41] [facility] Diagnosis:Other acute pulmonary embolism without acute cor pulmonale (HCC) [I26.99]Order(s):apixaban (ELIQUIS) 5 mg tab(s)Take 1 tablet by mouth twice daily.Disp: Rfl:Prescriptions as of 07/18/2017 Sig: ALBUTEROL SULFATE HFA 90 MCG/* Inhale 2 Puffs as instructed * * THERAPEUTIC MULTIVITAMIN TABL* Take one(1) tablet daily. * CALTRATE-600 PLUS VITAMIN D3 * Take one(1) tablet two(2) christiano* APIXABAN 5 MG TABLET Take 1 tablet by mouth twice * OXYCODONE-ACETAMINOPHEN 5 MG-* Take 1-2 tablets by mouth brandi* NAPROXEN 500 MG TABLET Take 1 tablet by mouth twice * ZOLPIDEM 10 MG TABLET TAKE 1 TAB BY MOUTH AT BEDTIM*Problem List As Of Date 07/18/2017 Noted Resolved Irritable Bowel Syndrome [K58.9] INVALID FOR* Unspecified Constipation [K59.00] INVALID FOR* PAIN ABDOMEN GENERALIZED [R10.84] INVALID FOR*04/17/2016 Insomnia, Unspecified [G47.00] INVALID FOR* NEVUS (NEOPLASM) UNSPECIFIED [D23.9]INVALID FOR*04/17/2016 Neoplasm of uncertain behavior of skin [D48.5] INVALID FOR*04/17/2016 Adjustment Disorder with Depressed Mood [F43.21]INVALID FOR* Family disruption [Z63.8] INVALID FOR*04/17/2016 Anxiety state [F41.1] INVALID FOR* PAIN BACK, LOW [M54.5] INVALID FOR*04/17/2016 Hypoglycemia, Unspecified [E16.2] INVALID FOR* Tobacco use disorder [F17.200] INVALID FOR*04/17/2016 Rectal bleeding [K62.5] 04/17/2016 Low back pain [M54.5] 04/17/2016 Degenerative arthritis of cervical spine [M47.8*INVALID FOR* Numbness of face [R20.0] INVALID FOR*04/17/2016 Costochondral pain [R07.1] INVALID FOR*04/17/2016 Facial pain [R51] INVALID FOR*04/17/2016 Palpitations [R00.2] INVALID FOR*04/17/2016 Tachycardia [R00.0] INVALID FOR*08/06/2016 Pain in joint, pelvic region and thigh [M25.559]INVALID FOR*04/17/2016 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] INVALID FOR*04/17/2016 Intramural leiomyoma of uterus [D25.1] INVALID FOR* Enlarged uterus [N85.2] INVALID FOR*08/21/2016 Abnormal uterine bleeding [N93.9] INVALID FOR*08/21/2016 Heartburn [R12] INVALID FOR* PONV (postoperative nausea and vomiting) [R11.2*INVALID FOR* S/P hysterectomy [Z90.710] INVALID FOR*Prescriptions ordered this encounter Disp Refills Start End APIXABAN 5 MG TABLET 07/18/2017 Class: Med Update Route: ORAL Sig: Take 1 tablet by mouth twice daily. Cosign accepted by YUAN MALCOLM MD[[id number]] on 07/18/2017 10:45 AMDisposition: Return in about 2 months (around 09/17/2017).Follow-up and Disposition History RecordedEncounter Number: [id number] Status:Closed by YUAN MALCOLM MD on 07/18/17 [facility] PROGRESSon 07-18-2017 PROGRESS HNO ID: [id number] thor: Yuan MalcolmSer: (none)Author Type: PhysicianType: Progress NotesFiled: 07/18/2017 10:45 AMNote Text:Transitional Care Management Progress NoteThe patients TCM visit was performed within the 7 days of discharge.Patient's Date of discharge: 07/15/17Date of initial coordinator contactafter discharge: 07/16/17Discharge diagnosis: peMedication review completed Makenzie Adams LPNProvider Documentation:In follow-up of hospitalization, Dee Hudson is a 47 year old femalewith the chief complaint of follow up PE.I have reviewed the patient?s last hospital course including diagnostictesting performed during this hospitalization, their dischargemedications, and my assessment and plan with the patient and any familymembers present at today?s visit.CARE MANAGEMENT (TCM)INITIAL CONTACTMedical Admissions Evaluator Outreach?Provider Action/FYI:TCM D/C from [facility] for acute segmental right lower lobe PE (acute). Messageleft for pt to call back to schedule hospital follow up.Called back and scheduled for 07/18/17 with PCP?Initial contact with patient post discharge, spoke to remarks: Messageleft for pt to call back to schedule appt.Patient identified by name and .?SUMMARY:-Pt discharged from [facility] on 07/15/17.-Admitted for:?1. Acute segmental right lower lobe PE (Acute)?2. Flu-like symptoms (Acute)?Do you have a hospital follow up appointment with your PCP?Appointment on 07/18/[address] Malcolm.No. Assist patient with follow-up appointment within 1-14 calendar daysfrom discharge date. If patient prefers not to schedule follow-upappointment at this time, notify PCP.?MEDICATIONS:Many patients have questions or concerns about their medications once theyare home.Were you prescribed any new medications?If yes, what are those medications? Eliquis 5 mg BID?Were you told to hold any medications?NoWere any of your medications discontinued?No?Do you have any questions about getting or taking your medications?No?Your discharge instructions/After visit Summary (AVS) are important inguiding you through the recovery process. Is there anything I might helpyou understand?No? Do you have all the necessary equipment and supplies at home?Yes?Medical records from recent hospitalization:Placed for provider to reviewHas done OK since discharge; still some dizziness, slight cough. Was alsodiagnosed with viral illness. No chest pain or SOB. Tolerating Eliquis.Takes OTC motrin for headaches; cautioned about increased bleeding risk.Past medical history, appointments, medications, allergies reviewed.Previous Medical HistoryPAST MEDICAL HISTORYDiagnosis Date- Abnormal glandular Papanicolaou smear of cervix Abn. Pap smear (cervix)- Adjustment disorder with depressed mood 07/16/2006- Anxiety state 07/17/2007- Constipation- Degenerative arthritis of cervical spine 04/30/2010- Hypoglycemia, unspecified 07/17/2007- Low back pain- Migraine, unspecified, with intractable migraine, so stated, withoutmention of status migrainosus Migraine- Neurofibroma of lower extremity 08/11/2015 removed- Rectal bleedingPrevious Surgical HistoryPAST SURGICAL HISTORYProcedure Laterality Date- CERVIX UTERI CONIZA LP ELCTRO EXCI 2001 LEEP-Cervix- CHOLECYSTECTOMY 04/2009 Cholecystectomy- COLONOSCOP W/ OR W/O [facility] SPEC 07/11/2009 Colonoscopy- COLPOSCOPY (VAGINOSCOPY) Colposcopy- [facility]-LAPAROSCOPY,30477 lav bilateral salpingectomy- LIGATE FALLOPIAN TUBE Tubal ligation- REMOVAL ADENOIDS,PRIMARY,<12 Y/O Adenoidectomy- REMOVAL OF TONSILS,<12 Y/O AGE 25 Tonsillectomy- SIGMOIDOSCOPY FLEX DIAG 04/2002 Sigmoidoscopy, flexibleFamily HistoryFAMILY HISTORYProblem Relation Age of Onset- Hypertension Maternal Grandmother- Alzheimer's Disease Maternal Grandmother- Breast Cancer Paternal Grandmother- Diabetes Paternal Grandmother- Heart Paternal Grandfather- Breast Cancer Paternal Aunt- Asthma Child daughterPatient AllergiesALLERGIESAllergen Reactions- Amitiza [Lubiprosto* Intolerance really bad stomach aches- Codeine- Lactose Intolerance*Current MedicationsCurrent Outpatient Prescriptions on File Prior to Visit:albuterol HFA (VENTOLIN HFA) 90 mcg/actuation inhaler Inhale 2 Puffs asinstructed every 4 hours as needed for Wheezing/Shortness of Breath.THERAPEUTIC MULTIVITAMIN TAB Take one(1) tablet daily.calcium carbonate/vitamin d3(CALTRATE-600 PLUS VITAMIN D3 600 MG-400 UNITTAB) Take one(1) tablet two(2) times daily.oxyCODONE-acetaminophe n (PERCOCET) 5-325 mg tablet Take 1-2 tablets bymouth every 4 hours as needed.naproxen (NAPROSYN) 500 mg tablet Take 1 tablet by mouth twice daily asneeded.zolpidem (AMBIEN) 10 mg tab TAKE 1 TAB BY MOUTH AT BEDTIME NEEDED FORINSOMNIANo current facility-administered medications on file prior to visit.Social HistorySocial History Marital status: Spouse name: Brannon Years of education: 17 Number of children: 3Occupational 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*Social History Main Topics Smoking status: Former Smoker Packs/day: 0.50 Years: 3.50 Quit date: 03/08/2003 Smokeless tobacco: Never Used Alcohol use: Yes Comment: rare Drug use: No Sexual activity: Yes Partners with: Male control/protection: Tubal Ligation Comment: BTLEXAM:BP 128/62 (BP Site: Left Arm, BP Position: Sitting, BP Cuff Size: RegularAdult) Pulse (!) 16 Resp 16 Wt 74.7 kg (164 lb 9.6 oz) LMP07/23/2016 (Approximate) BMI 27.39 kg/m?General Appearance: Well appearing, alert, in no acute distress,well-hydrated, well nourished..Oropharynx: Lips, mucosa, and tongue normal, teeth and gums normal,oropharynx normal.Neck: Supple, no adenopathy; thyroid symmetric, normal size, no bruits.Lungs: Lungs clear to auscultation. No wheezing, rhonchi, rales.Heart: RRR without murmur, gallop, or rubs. No ectopy.Health Maintenance ListONE PNEUMOVAX PRIOR TO AGE 65 due on 1991MAMMOGRAM due on 06/30/2017INFLUENZA(Season Ended) due on 10/31/2017LIPID SCREEN due on 12/03/2018DIABETES SCREEN due on 08/23/2019PAP EVERY 5 YEARS due on 03/29/2020HPV EVERY 5 YEARS due on 1DTAP,TDAP,TD(2 - Td) due on 2Data reviewedHosp recordsASSESSMENT/PLAN:1. Other acute pulmonary embolism without acute cor pulmonale (HCC) -ICD9: 415.19, ICD10: I26.99Continue Eliquis; plan for 3 monthsAwaiting lab [facility] up [facility] 2 monthsYuan Malcolm MD [facility] PROGRESSon 07-16-2017 PROGRESS HNO ID: [id number] thor: Lavern Velasquez RNService: (none)Author Type: (none)Type: Progress NotesFiled: 07/16/2017 1:32 PMNote Text:TRANSITION CARE MANAGEMENT (TCM)INITIAL CONTACTMedical Admissions Evaluator OutreachProvider Action/FYI:TCM D/C from [facility] for acute segmental right lower lobe PE (acute). Messageleft for pt to call back to schedule hospital follow up.Called back and scheduled for 07/18/17 with PCPInitial contact with patient post discharge, spoke to remarks: Messageleft for pt to call back to schedule appt.Patient identified by name and .SUMMARY:-Pt discharged from [facility] on 07/15/17.-Admitted for:1. Acute segmental right lower lobe PE (Acute)2. Flu-like symptoms (Acute)Do you have a hospital follow up appointment with your PCP?Appointment on 07/18/[address] Malcolm.No. Assist patient with follow-up appointment within 1-14 calendar daysfrom discharge date. If patient prefers not to schedule follow-upappointment at this time, notify PCP.MEDICATIONS:Many patients have questions or concerns about their medications once theyare home.Were you prescribed any new medications?If yes, what are those medications? Eliquis 5 mg BIDWere you told to hold any medications?NoWere any of your medications discontinued?NoDo you have any questions about getting or taking your medications?NoYour discharge instructions/After visit Summary (AVS) are important inguiding you through the recovery process. Is there anything I might helpyou understand?No Do you have all the necessary equipment and supplies at home?YesMedical records from recent hospitalization:Placed for provider to review Normal [facility] PROGRESSon 01-02-2017 PROGRESS HNO ID: [id number] thor: Rebekah Figueroa (Rt) Juliana Deng: (none)Author Type: TechnicianType: Progress NotesFiled: 01/02/2017 3:29 PMNote Text: Radiology Service Progress NotePATIENT NAME: Dee Monterroso CorpMRN: [id number] OF SERVICE: January 02, 2017TIME: 3:20 PMPATIENT IDENTITY VERIFICATION COMPLETED USING TWO (2) METHODS: Patientconfirmed name verbally and Date of .PATIENT GENDER DATA: Female. status: : NoBreastfeeding status: NO.PATIENT RELEVANT IMPLANT DATA REVIEWED: Not ApplicableRADIOLOGY DEPARTMENT: General X-ray: Exam(s) Completed: Pelvis X-Ray:Pelvis with Hip RightPERIPHERAL IV DATA: Not applicableSIGNED BY: Rebekah Deng, RTNovember 2016 3:20 PM Normal [facility] XR HIP 3V PELV+ AP/LAT RTon 01-02-2017 XR HIP 3V PELV+ AP/LAT RT * * *Final Report* * *DATE OF EXAM: Jan 02 2017 3:32PM WOX [id number] - XR HIP 3V PELV+ AP/LAT RT / REASON: Pain in right hip * * * * Physician Interpretation * * * * Pelvis and right hipHISTORY:Indication: Pain in right hipTECHNIQUE:Images: XR HIP 3V PELV+ AP/LAT RTComparison: None.RESULT:Findings: Bone density well preserved.Pelvis: No fractures or dislocations are seen.Right hip: No fractures or dislocations are seen.IMPRESSION:No acute pathology.Pupil Personnel Services Director: KALI Transcribe Date/Time: Jan 02 2017 5:12PDictated by : Rylee REED examination was interpreted and the report reviewed and electronically signed by: FAN MCCOY DO on Jan 02 2017 5:14PM [id number] [facility] [facility] HOSPon 01-01-2017 [facility] Get Medical Advic e (FAMPWS) ----DEE HUDSON ([id number]) 1970 FDate Time Provider Nafiyhcdqp72/2/17 [facility] During your visit today, we recorded the following information about you:Karley Fox Ma 01/01/2017 3:19 PM SignedX-ray ordered, pt notified.Karley Barrera As of Date: 01/01/2017 Noted Allergy ReactionAMITIZA (LUBIPROSTONE) 2009 5 - Intolerance Comments: really bad stomach achesCODEINE 05/07/2005LACTOSE INTOLERANCE (LACTASE) 05/07/2005Date Reviewed: 10/15/2016Reviewed by: Elisa Briones Ma - Fully AssessedPrimary Visit Diagnosis:Right hip pain [M25.551]Order(s):XR HIP GENERAL 3V PELV/AP/LAT RT [[id number]] Order #: [id number] FUTUREPrescriptions as of 01/01/2017 Sig: OXYCODONE-ACETAMINOPHEN 5 MG-* Take 1-2 tablets by mouth brandi* NAPROXEN 500 MG TABLET Take 1 tablet by mouth twice * ZOLPIDEM 10 MG TABLET TAKE 1 TAB BY MOUTH AT BEDTIM* ALBUTEROL SULFATE HFA 90 MCG/* Inhale 2 Puffs as instructed * * THERAPEUTIC MULTIVITAMIN TABL* Take one(1) tablet daily. * CALTRATE-600 PLUS VITAMIN D3 * Take one(1) tablet two(2) christiano*Problem List As Of Date 01/01/2017 Noted Resolved Irritable Bowel Syndrome [K58.9] INVALID FOR* Unspecified Constipation [K59.00] INVALID FOR* PAIN ABDOMEN GENERALIZED [R10.84] INVALID FOR*04/17/2016 Insomnia, Unspecified [G47.00] INVALID FOR* NEVUS (NEOPLASM) UNSPECIFIED [D23.9]INVALID FOR*04/17/2016 Neoplasm of uncertain behavior of skin [D48.5] INVALID FOR*04/17/2016 Adjustment Disorder with Depressed Mood [F43.21]INVALID FOR* Family disruption [Z63.8] INVALID FOR*04/17/2016 Anxiety state [F41.1] INVALID FOR* PAIN BACK, LOW [M54.5] INVALID FOR*04/17/2016 Hypoglycemia, Unspecified [E16.2] INVALID FOR* Tobacco use disorder [F17.200] INVALID FOR*04/17/2016 Rectal bleeding [K62.5] 04/17/2016 Low back pain [M54.5] 04/17/2016 Degenerative arthritis of cervical spine [M47.8*INVALID FOR* Numbness of face [R20.0] INVALID FOR*04/17/2016 Costochondral pain [R07.1] INVALID FOR*04/17/2016 Facial pain [R51] INVALID FOR*04/17/2016 Palpitations [R00.2] INVALID FOR*04/17/2016 Tachycardia [R00.0] INVALID FOR*08/06/2016 Pain in joint, pelvic region and thigh [M25.559]INVALID FOR*04/17/2016 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] INVALID FOR*04/17/2016 Intramural leiomyoma of uterus [D25.1] INVALID FOR* Enlarged uterus [N85.2] INVALID FOR*08/21/2016 Abnormal uterine bleeding [N93.9] INVALID FOR*08/21/2016 Heartburn [R12] INVALID FOR* PONV (postoperative nausea and vomiting) [R11.2*INVALID FOR* S/P hysterectomy [Z90.710] INVALID FOR* Status:Closed by FERCHO SMITH CNP on 01/01/17 [facility] 11-14-2016 [facility] Medical Advic e (FAMPWS) ----DEE HUDSON ([id number]) 1970 FDate Time Provider Department11/14/16 [facility] During your visit today, we recorded the following information about you:Karley Fox Ma 11/17/2016 4:43 PM SignedCan we please help this patient get setup with the Rn Acute Dialysis, aura.Karley Fox MaAllergies As of Date: 11/14/2016 Noted Allergy ReactionAMITIZA (LUBIPROSTONE) 2009 5 - Intolerance Comments: really bad stomach achesCODEINE 05/07/2005LACTOSE INTOLERANCE (LACTASE) 05/07/2005Date Reviewed: 10/15/2016Reviewed by: Elisa Briones Ma - Fully AssessedPrescriptions as of 11/14/2016 Sig: OXYCODONE-ACETAMINOPHEN 5 MG-* Take 1-2 tablets by mouth brandi* NAPROXEN 500 MG TABLET Take 1 tablet by mouth twice * ZOLPIDEM 10 MG TABLET TAKE 1 TAB BY MOUTH AT BEDTIM* ALBUTEROL SULFATE HFA 90 MCG/* Inhale 2 Puffs as instructed * * THERAPEUTIC MULTIVITAMIN TABL* Take one(1) tablet daily. * CALTRATE-600 PLUS VITAMIN D3 * Take one(1) tablet two(2) christiano*Problem List As Of Date 11/14/2016 Noted Resolved Irritable Bowel Syndrome [K58.9] INVALID FOR* Unspecified Constipation [K59.00] INVALID FOR* PAIN ABDOMEN GENERALIZED [R10.84] INVALID FOR*04/17/2016 Insomnia, Unspecified [G47.00] INVALID FOR* NEVUS (NEOPLASM) UNSPECIFIED [D23.9]INVALID FOR*04/17/2016 Neoplasm of uncertain behavior of skin [D48.5] INVALID FOR*04/17/2016 Adjustment Disorder with Depressed Mood [F43.21]INVALID FOR* Family disruption [Z63.8] INVALID FOR*04/17/2016 Anxiety state [F41.1] INVALID FOR* PAIN BACK, LOW [M54.5] INVALID FOR*04/17/2016 Hypoglycemia, Unspecified [E16.2] INVALID FOR* Tobacco use disorder [F17.200] INVALID FOR*04/17/2016 Rectal bleeding [K62.5] 04/17/2016 Low back pain [M54.5] 04/17/2016 Degenerative arthritis of cervical spine [M47.8*INVALID FOR* Numbness of face [R20.0] INVALID FOR*04/17/2016 Costochondral pain [R07.1] INVALID FOR*04/17/2016 Facial pain [R51] INVALID FOR*04/17/2016 Palpitations [R00.2] INVALID FOR*04/17/2016 Tachycardia [R00.0] INVALID FOR*08/06/2016 Pain in joint, pelvic region and thigh [M25.559]INVALID FOR*04/17/2016 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] INVALID FOR*04/17/2016 Intramural leiomyoma of uterus [D25.1] INVALID FOR* Enlarged uterus [N85.2] INVALID FOR*08/21/2016 Abnormal uterine bleeding [N93.9] INVALID FOR*08/21/2016 Heartburn [R12] INVALID FOR* PONV (postoperative nausea and vomiting) [R11.2*INVALID FOR* S/P hysterectomy [Z90.710] INVALID FOR* Status:Closed by YUAN MALCOLM MD on 11/14/16 Normal [facility] CNOVon 10-15-2016 CNOV Office Visit (WOOB) --BECCADEE ([id number]) 1970 FDate Time Provider Department10/15/16 8:20 AM ROSALINDA MARROQUIN WOBLANCA During your visit today, we recorded the following information about you: Blood pressure Weight 108/70 71.2 kgRosalinda Soto MD 10/15/2016 8:40 AM SignedSUBJECTIVE:46 year old female presents for 6 week post-op exam. S/p LAVH by . Pt reports no complications- has resumed intercourse withoutcomplications.Objecti ve:Incision: HealedAbdomen: Soft, Non-tender, No palpable masses and No hepatosplenomegaly.Genitalia : Normal external genitalia, Urethral meatus normal, Bladdernontender, normal vagina and normal vaginal tone, cervix absent, uterus absent,normal adnexa without masses or tenderness and perineum WNL. Vaginal cuffintact.Impression: Post-Op ExamPlan: Return to office annual exam.I have reviewed and updated past medical and surgical history, medications andallergies.Renetta Tellez Provider: SELF [[id number]]Allergies As of Date: 10/15/2016 Noted Allergy ReactionAMITIZA (LUBIPROSTONE) 2009 5 - Intolerance Comments: really bad stomach achesCODEINE 05/07/2005LACTOSE INTOLERANCE (LACTASE) 05/07/2005Date Reviewed: 10/15/2016Reviewed by: Elisa Briones Ma - Fully AssessedReason for Visit: Post-Op Visit [1236]Primary Visit Diagnosis:Post-operative state [Z98.890]Prescriptions as of 10/15/2016 Sig: NAPROXEN 500 MG TABLET Take 1 tablet by mouth twice * ZOLPIDEM 10 MG TABLET TAKE 1 TAB BY MOUTH AT BEDTIM* ALBUTEROL SULFATE HFA 90 MCG/* Inhale 2 Puffs as instructed * * THERAPEUTIC MULTIVITAMIN TABL* Take one(1) tablet daily. * CALTRATE-600 PLUS VITAMIN D3 * Take one(1) tablet two(2) christiano* OXYCODONE-ACETAMINOPHEN 5 MG-* Take 1-2 tablets by mouth brandi*Problem List As Of Date 10/15/2016 Noted Resolved Irritable Bowel Syndrome [K58.9] INVALID FOR* Unspecified Constipation [K59.00] INVALID FOR* PAIN ABDOMEN GENERALIZED [R10.84] INVALID FOR*04/17/2016 Insomnia, Unspecified [G47.00] INVALID FOR* NEVUS (NEOPLASM) UNSPECIFIED [D23.9]INVALID FOR*04/17/2016 Neoplasm of uncertain behavior of skin [D48.5] INVALID FOR*04/17/2016 Adjustment Disorder with Depressed Mood [F43.21]INVALID FOR* Family disruption [Z63.8] INVALID FOR*04/17/2016 Anxiety state [F41.1] INVALID FOR* PAIN BACK, LOW [M54.5] INVALID FOR*04/17/2016 Hypoglycemia, Unspecified [E16.2] INVALID FOR* Tobacco use disorder [F17.200] INVALID FOR*04/17/2016 Rectal bleeding [K62.5] 04/17/2016 Low back pain [M54.5] 04/17/2016 Degenerative arthritis of cervical spine [M47.8*INVALID FOR* Numbness of face [R20.0] INVALID FOR*04/17/2016 Costochondral pain [R07.1] INVALID FOR*04/17/2016 Facial pain [R51] INVALID FOR*04/17/2016 Palpitations [R00.2] INVALID FOR*04/17/2016 Tachycardia [R00.0] INVALID FOR*08/06/2016 Pain in joint, pelvic region and thigh [M25.559]INVALID FOR*04/17/2016 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 Status:Closed by ROSALINDA STONER MD on 10/15/16 Normal [facility] PROGRESSon 10-15-2016 PROGRESS HNO ID: [id number] thor: Rosalinda StonerService: (none)Author Type: PhysicianType: Progress NotesFiled: 10/15/2016 8:40 AMNote Text:SUBJECTIVE:46 year old female presents for 6 week post-op exam. S/p LAVH by . Pt reports no complications- has resumed intercourse withoutcomplications.Objecti ve:Incision: HealedAbdomen: Soft, Non-tender, No palpable masses and No hepatosplenomegaly.Genitalia : Normal external genitalia, Urethral meatus normal, Bladdernontender, normal vagina and normal vaginal tone, cervix absent, uterusabsent, normal adnexa without masses or tenderness and perineum WNL.Vaginal cuff intact.Impression: Post-Op ExamPlan: Return to office annual exam.I have reviewed and updated past medical and surgical history, medicationsand allergies.Rosalinda Soto MD Normal [facility] OBSOLETEon 09-27-2016 OBSOLETE Refill (FAMPWS) ----DEE HUDSON ([id number]) 1970 FDate Time Provider Department09/27/16 YUAN MALCOLM During your visit today, we recorded the following information about you:Andrews Perez PharmD 09/29/2016 11:25 AM SignedPharmacist Refill Authorization ReviewName: Dee HudsonMRN: [id number]: 09/29/2016Time: 11:25 AMRefill authorization request(s) received via pharmacy request and reviewedunder effective consult agreement. Upon review, did confirm that an activepatient-provider relationship exists and that the prescriber is a participatingphysician under the consult agreement.The medication(s) fall under the following categories:Category 3: 1 corresponding medication(s) does not qualify for renewal due tothe medication being discontinued by provider.Additional actions taken: Contacted pharmacy to discuss.Gilda Bishopharyahaira Managed Authorization CenterPhone Current Outpatient Prescriptions:oxyCODONE-acet aminophen (PERCOCET) 5-325 mg tablet Take 1-2 tablets by mouthevery 4 hours as needed.naproxen (NAPROSYN) 500 mg tablet Take 1 tablet by mouth twice daily as needed.zolpidem (AMBIEN) 10 mg tab TAKE 1 TAB BY MOUTH AT BEDTIME NEEDED FORINSOMNIAalbuterol HFA (VENTOLIN HFA) 90 mcg/actuation inhaler Inhale 2 Puffs asinstructed every 4 hours as needed for Wheezing/Shortness of Breath.THERAPEUTIC MULTIVITAMIN TAB Take one(1) tablet daily.calcium carbonate/vitamin d3(CALTRATE-600 PLUS VITAMIN D3 600 MG-400 UNIT TAB)Take one(1) tablet two(2) times daily.No current facility-administered medications for this visit.Allergies As of Date: 09/27/2016 Noted Allergy ReactionAMITIZA (LUBIPROSTONE) 2009 5 - Intolerance Comments: really bad stomach achesCODEINE 05/07/2005LACTOSE INTOLERANCE (LACTASE) 05/07/2005Date Reviewed: 08/29/2016Reviewed by: Sallie Motta Ma - Fully AssessedReason for Visit: Refill Request [94]Prescriptions as of 09/27/2016 Sig: OXYCODONE-ACETAMINOPHEN 5 MG-* Take 1-2 tablets by mouth brandi* NAPROXEN 500 MG TABLET Take 1 tablet by mouth twice * ZOLPIDEM 10 MG TABLET TAKE 1 TAB BY MOUTH AT BEDTIM* ALBUTEROL SULFATE HFA 90 MCG/* Inhale 2 Puffs as instructed * * THERAPEUTIC MULTIVITAMIN TABL* Take one(1) tablet daily. * CALTRATE-600 PLUS VITAMIN D3 * Take one(1) tablet two(2) christiano*Problem List As Of Date 09/27/2016 Noted Resolved Irritable Bowel Syndrome [K58.9] INVALID FOR* Unspecified Constipation [K59.00] INVALID FOR* PAIN ABDOMEN GENERALIZED [R10.84] INVALID FOR*04/17/2016 Insomnia, Unspecified [G47.00] INVALID FOR* NEVUS (NEOPLASM) UNSPECIFIED [D23.9]INVALID FOR*04/17/2016 Neoplasm of uncertain behavior of skin [D48.5] INVALID FOR*04/17/2016 Adjustment Disorder with Depressed Mood [F43.21]INVALID FOR* Family disruption [Z63.8] INVALID FOR*04/17/2016 Anxiety state [F41.1] INVALID FOR* PAIN BACK, LOW [M54.5] INVALID FOR*04/17/2016 Hypoglycemia, Unspecified [E16.2] INVALID FOR* Tobacco use disorder [F17.200] INVALID FOR*04/17/2016 Rectal bleeding [K62.5] 04/17/2016 Low back pain [M54.5] 04/17/2016 Degenerative arthritis of cervical spine [M47.8*INVALID FOR* Numbness of face [R20.0] INVALID FOR*04/17/2016 Costochondral pain [R07.1] INVALID FOR*04/17/2016 Facial pain [R51] INVALID FOR*04/17/2016 Palpitations [R00.2] INVALID FOR*04/17/2016 Tachycardia [R00.0] INVALID FOR*08/06/2016 Pain in joint, pelvic region and thigh [M25.559]INVALID FOR*04/17/2016 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] INVALID FOR*04/17/2016 Intramural leiomyoma of uterus [D25.1] INVALID FOR* Enlarged uterus [N85.2] INVALID FOR*08/21/2016 Abnormal uterine bleeding [N93.9] INVALID FOR*08/21/2016 Heartburn [R12] INVALID FOR* PONV (postoperative nausea and vomiting) [R11.2*INVALID FOR* S/P hysterectomy [Z90.710] INVALID FOR* Status:Closed by JEEVAN (PHARMACIST)ANDREWS on 09/29/16 [facility] CNOVon 08-29-2016 CNOV Office Visit (WOOB) --DEE HUDSON ([id number]) 1970 FDate Time Provider Department08/29/16 11:30 AM ROBYN JO WOBLANCA During your visit today, we recorded the following information about you: Blood pressure Weight 96/62 70.3 kgRobyn Jo MD 08/29/2016 11:57 AM SignedSUBJECTIVE:46 year old female presents for 1 week post-op exam.OBJECTIVE:Incision: HealedAbdomen: Soft, Non-tender, No palpable masses and No hepatosplenomegaly.PLAN:RTO for 6 week checkI have reviewed and updated past medical and surgical history, medications andallergies.ROMAIN Pickettefdameon Provider: ROBYN JO [[id number]]Allergies As of Date: 08/29/2016 Noted Allergy ReactionAMITIZA (LUBIPROSTONE) 2009 5 - Intolerance Comments: really bad stomach achesCODEINE 05/07/2005LACTOSE INTOLERANCE (LACTASE) 05/07/2005Date Reviewed: 08/29/2016Reviewed by: Sallie Motta Ma - Fully AssessedReason for Visit: Post-Op Visit [1236]Visit Diagnosis:Encounter for postoperative care [Z48.89]Prescriptions as of 08/29/2016 Sig: NAPROXEN 500 MG TABLET Take 1 tablet by mouth twice * ALBUTEROL SULFATE HFA 90 MCG/* Inhale 2 Puffs as instructed * * THERAPEUTIC MULTIVITAMIN TABL* Take one(1) tablet daily. * CALTRATE-600 PLUS VITAMIN D3 * Take one(1) tablet two(2) christiano* OXYCODONE-ACETAMINOPHEN 5 MG-* Take 1-2 tablets by mouth brandi* ZOLPIDEM 10 MG TABLET TAKE 1 TAB BY MOUTH AT BEDTIM*Medication notes this encounter OXYCODONE-ACETAMINOPHEN 5 MG-325 MG TABLET >> Sallie Motta Ma 08/29/2016 11:38 AM >> SALLIE MOTTA MA ThuAug 29, 2016 11:38 AM Discontinued.Problem List As Of Date 08/29/2016 Noted Resolved Irritable Bowel Syndrome [K58.9] INVALID FOR* Unspecified Constipation [K59.00] INVALID FOR* PAIN ABDOMEN GENERALIZED [R10.84] INVALID FOR*04/17/2016 Insomnia, Unspecified [G47.00] INVALID FOR* NEVUS (NEOPLASM) UNSPECIFIED [D23.9]INVALID FOR*04/17/2016 Neoplasm of uncertain behavior of skin [D48.5] INVALID FOR*04/17/2016 Adjustment Disorder with Depressed Mood [F43.21]INVALID FOR* Family disruption [Z63.8] INVALID FOR*04/17/2016 Anxiety state [F41.1] INVALID FOR* PAIN BACK, LOW [M54.5] INVALID FOR*04/17/2016 Hypoglycemia, Unspecified [E16.2] INVALID FOR* Tobacco use disorder [F17.200] INVALID FOR*04/17/2016 Rectal bleeding [K62.5] 04/17/2016 Low back pain [M54.5] 04/17/2016 Degenerative arthritis of cervical spine [M47.8*INVALID FOR* Numbness of face [R20.0] INVALID FOR*04/17/2016 Costochondral pain [R07.1] INVALID FOR*04/17/2016 Facial pain [R51] INVALID FOR*04/17/2016 Palpitations [R00.2] INVALID FOR*04/17/2016 Tachycardia [R00.0] INVALID FOR*08/06/2016 Pain in joint, pelvic region and thigh [M25.559]INVALID FOR*04/17/2016 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] INVALID FOR*04/17/2016 Intramural leiomyoma of uterus [D25.1] INVALID FOR* Enlarged uterus [N85.2] INVALID FOR*08/21/2016 Abnormal uterine bleeding [N93.9] INVALID FOR*08/21/2016 Heartburn [R12] INVALID FOR* PONV (postoperative nausea and vomiting) [R11.2*INVALID FOR* S/P hysterectomy [Z90.710] INVALID FOR* Status:Closed by ROBYN JO MD on 08/29/16 Normal [facility] PROGRESSon 08-29-2016 PROGRESS HNO ID: [id number] thor: Robyn JoSer: (none)Author Type: PhysicianType: Progress NotesFiled: 08/29/2016 11:57 AMNote Text:SUBJECTIVE:46 year old female presents for 1 week post-op exam.OBJECTIVE:Incision: HealedAbdomen: Soft, Non-tender, No palpable masses and No hepatosplenomegaly.PLAN:RTO for 6 week checkI have reviewed and updated past medical and surgical history, medicationsand allergies.Robyn Jo MD Normal [facility] Vital Signs Date Time Vital Sign Value Performing Clinician Faci lity 11-03-2024 08:26-0400 Body height 165.[address] Tu Davila MD Work Phone: [facility] 11-03-2024 08:26-0400 Body mass index (BMI) [Ratio] 23.8 kg/m2 Dr. Tu Davila MD Work Phone: [facility] 11-03-2024 08:26-0400 Body weight 64.[address] Tu Davila MD Work Phone: [facility] 11-03-2024 08:26-0400 Diastolic blood pressure 76 mm[Hg] Dr. Tu Davila MD Work Phone: [facility] 11-03-2024 08:26-0400 Systolic blood pressure 114 mm[Hg] Dr. Tu Davila MD Work Phone: [facility] 10-21-2024 07:46-0400 Body height 165.[address] Tu Davila MD Work Phone: [facility] 10-21-2024 07:46-0400 Body mass index (BMI) [Ratio] 23.1 kg/m2 Dr. Tu Davila MD Work Phone: [facility] 10-21-2024 07:46-0400 Body temperature 96.3 [degF] Dr. Tu Davila MD Work Phone: [facility] 10-21-2024 07:46-0400 Body weight 63.[address] Tu Davila MD Work Phone: [facility] 10-21-2024 07:46-0400 Diastolic blood pressure 70 mm[Hg] Dr. Tu Davila MD Work Phone: [facility] 10-21-2024 07:46-0400 Heart rate 83 /min Dr. Tu Davila MD Work Phone: [facility] 10-21-2024 07:46-0400 Respiratory rate 16 /min Dr. Tu Davila MD Work Phone: [facility] 10-21-2024 07:46-0400 SaO2% (BldA) [Mass fraction] 97 % Dr. Tu Davila MD Work Phone: [facility] 10-21-2024 07:46-0400 Systolic blood pressure 106 mm[Hg] Dr. Tu Davila MD Work Phone: [facility] 06-30-2023 15:37-0400 Diastolic blood pressure 82 mm[Hg] Dr. Tu Davila Work Phone: [facility] 06-30-2023 15:37-0400 Heart rate 113 /min Dr. Tu Davila Work Phone: [facility] 06-30-2023 15:37-0400 Systolic blood pressure 95 mm[Hg] Dr. Tu Davila Work Phone: [facility] 06-30-2023 08:39-0400 Body height 165.[address] Tu Davila Work Phone: [facility] 06-30-2023 08:39-0400 Body mass index (BMI) [Ratio] 22.2 kg/m2 Dr. Tu Davila Work Phone: [facility] 06-30-2023 08:39-0400 Body temperature 98.4 [degF] Dr. Tu Davila Work Phone: [facility] 06-30-2023 08:39-0400 Body weight 60.[address] Tu Davila Work Phone: [facility] 06-30-2023 08:39-0400 Respiratory rate 17 /min Dr. Tu Davila Work Phone: [facility] 06-30-2023 08:39-0400 SaO2% (BldA) [Mass fraction] 94 % Dr. Tu Davila Work Phone: [facility] 04-30-2023 08:05-0500 Body mass index (BMI) [Ratio] 22.1 kg/m2 Dr. Tu Davila Work Phone: [facility] 04-30-2023 08:05-0500 Body temperature 97.9 [degF] Dr. Tu Davila Work Phone: [facility] 04-30-2023 08:05-0500 Body weight 60.[address] Tu Davila Work Phone: [facility] 04-30-2023 08:05-0500 Diastolic blood pressure 60 mm[Hg] Dr. Tu Davila Work Phone: [facility] 04-30-2023 08:05-0500 Heart rate 93 /min Dr. Tu Davila Work Phone: [facility] 04-30-2023 08:05-0500 Respiratory rate 16 /min Dr. Tu Davila Work Phone: [facility] 04-30-2023 08:05-0500 SaO2% (BldA) [Mass fraction] 98 % Dr. Tu Davila Work Phone: [facility] 04-30-2023 08:05-0500 Systolic blood pressure 114 mm[Hg] Dr. Tu Davila Work Phone: [facility] 03-18-2023 09:18-0500 Body mass index (BMI) [Ratio] 22.8 kg/m2 Dr. Tu Davila Work Phone: [facility] 03-18-2023 09:18-0500 Body temperature 97.7 [degF] Dr. Tu Davila Work Phone: [facility] 03-18-2023 09:18-0500 Body weight 62.[address] Tu Davila Work Phone: [facility] 03-18-2023 09:18-0500 Diastolic blood pressure 60 mm[Hg] Dr. Tu Davila Work Phone: [facility] 03-18-2023 09:18-0500 Heart rate 97 /min Dr. Tu Davila Work Phone: [facility] 03-18-2023 09:18-0500 Respiratory rate 16 /min Dr. Tu Davila Work Phone: [facility] 03-18-2023 09:18-0500 SaO2% (BldA) [Mass fraction] 97 % Dr. Tu Davila Work Phone: [facility] 03-18-2023 09:18-0500 Systolic blood pressure 120 mm[Hg] Dr. Tu Davila Work Phone: [facility] 01-30-2023 07:51-0500 Body height 165.[address] Tu Davila Work Phone: [facility] 01-30-2023 07:51-0500 Body mass index (BMI) [Ratio] 23.1 kg/m2 Dr. Tu Davila Work Phone: [facility] 01-30-2023 07:51-0500 Body temperature 97.7 [degF] Dr. Tu Davila Work Phone: [facility] 01-30-2023 07:51-0500 Body weight 63.[address] Tu Davila Work Phone: [facility] 01-30-2023 07:51-0500 Diastolic blood pressure 62 mm[Hg] Dr. Tu Davila Work Phone: [facility] 01-30-2023 07:51-0500 Heart rate 107 /min Dr. Tu Davila Work Phone: [facility] 01-30-2023 07:51-0500 Respiratory rate 16 /min Dr. Tu Davila Work Phone: [facility] 01-30-2023 07:51-0500 SaO2% (BldA) [Mass fraction] 97 % Dr. Tu Davila Work Phone: [facility] 01-30-2023 07:51-0500 Systolic blood pressure 122 mm[Hg] Dr. Tu Davila Work Phone: [facility] 01-14-2022 09:34-0500 Body height 165.[address] Tu Davila Work Phone: [facility] Work Phone: 01-14-2022 09:33-0500 Body mass index (BMI) [Ratio] 25.1 kg/m2 Dr. Tu Davila Work Phone: [facility] Work Phone: 01-14-2022 09:33-0500 Body weight 68.[address] Tu Davila Work Phone: [facility] Work Phone: 01-14-2022 09:33-0500 Diastolic blood pressure 74 mm[Hg] Dr. Tu Davila Work Phone: [facility] Work Phone: 01-14-2022 09:33-0500 Systolic blood pressure 109 mm[Hg] Dr. Tu Davila Work Phone: [facility] Work Phone: 08-14-2021 08:07-0400 Body height 165.[address] Tu Davila Work Phone: [facility] Work Phone: 08-14-2021 08:07-0400 Body mass index (BMI) [Ratio] 25 kg/m2 Dr. Tu Davila Work Phone: [facility] Work Phone: 08-14-2021 08:07-0400 Body temperature 97.7 [degF] Dr. Tu Davila Work Phone: [facility] Work Phone: 08-14-2021 08:07-0400 Body weight 68.[address] Tu Davila Work Phone: [facility] Work Phone: 08-14-2021 08:07-0400 Diastolic blood pressure 62 mm[Hg] Dr. Tu Davila Work Phone: [facility] Work Phone: 08-14-2021 08:07-0400 Heart rate 93 /min Dr. Tu Davila Work Phone: [facility] Work Phone: 08-14-2021 08:07-0400 Respiratory rate 18 /min Dr. Tu Davila Work Phone: [facility] Work Phone: 08-14-2021 08:07-0400 SaO2% (BldA) [Mass fraction] 96 % Dr. Tu Davila Work Phone: [facility] Work Phone: 08-14-2021 08:07-0400 Systolic blood pressure 102 mm[Hg] Dr. Tu Davila Work Phone: [facility] Work Phone: Encounters Encounter Date Encounter Type Care Provider Facility Start: 11-14-2024 End: 11-14-[address] Tu Davila MD Work Phone: -Laboratory Start: 11-14-2024 End: 11-14-2024 Patient encounter procedure Olivia ACUNA -Laboratory Work Phone: Start: 11-14-2024 End: 11-14-2024 [facility] Start: 11-03-2024 End: 11-03-2024 Patient encounter procedure Olivia ACUNA -[facility] Work Phone: Start: 11-03-2024 End: 11-03-2024 Patient encounter status Olivia ACUNA [facility] Start: 11-03-2024 End: 11-03-[address] Tu Davila MD Work Phone: -[facility] Start: 11-03-2024 End: 11-03-2024 [facility]ulatory [facility] Facility:[facility] Start: 10-28-2024 End: 10-28-2024 Emergency department patient visit [facility] Start: 10-21-2024 End: 10-21-[address] Tu Davila MD -[facility] Work Phone: Start: 10-21-2024 End: 10-21-[address] Tu Davila MD Work Phone: -[facility] Start: 05-02-2024 End: 05-02-[facility] Start: 03-21-2024 End: 03-21-[facility] Start: 02-26-2024 End: 02-26-2024 [facility] Start: 02-26-2024 End: 02-26-2024 [facility] Start: 02-02-2024 End: 02-02-2024 ambulatory [facility] Start: 06-30-2023 End: 06-30-[address] Tu Davila Work Phone: [facility] Work Phone: Start: 06-30-2023 End: 06-30-[address] Tu Davila Work Phone: [facility] Work Phone: Start: 06-30-2023 End: 06-30-[address] Tu Davila Work Phone: [facility] Work Phone: Start: 04-30-2023 End: 04-30-[address] Tu Davila Work Phone: [facility] Start: 04-30-2023 End: 04-30-[address] Tu Davila Work Phone: [facility] Work Phone: Start: 03-18-2023 End: 03-18-[address] Tu Davila Work Phone: [facility] Work Phone: Start: 01-30-2023 End: 01-30-[address] Tu Davila Work Phone: [facility] Work Phone: Start: 01-30-2023 End: 01-30-[address] Tu Davila Work Phone: [facility] Work Phone: Start: 11-27-2022 End: 11-27-[address] Tu Davila Work Phone: [facility] Work Phone: Start: 01-14-2022 End: 01-14-[address] Tu Davila Work Phone: [facility] Work Phone: Start: 01-14-2022 End: 01-14-[address] Tu Davila Work Phone: [facility] Start: 01-14-2022 End: 01-14-[address] Tu Davila Work Phone: [facility] Start: 11-19-2021 End: 11-19-[address] Tu Davila Work Phone: [facility] Work Phone: Start: 11-19-2021 End: 11-19-[address] Tu Davila Work Phone: [facility] Start: 09-30-2021 End: 09-30-[address] Tu Davila Work Phone: [facility], [facility] Start: 08-14-2021 End: 08-14-[address] Tu Davila Work Phone: [facility] Start: 07-18-2017 End: 07-21-2017 Ambulatory YUAN MALCOLM [facility] Start: 01-02-2017 End: 01-02-2017 Ambulatory FERCHO RenteriaELISABETHAntonio SMITH [facility] Start: 10-15-2016 End: 10-17-2016 Ambulatory ROSALINDA STONER [facility] Start: 08-29-2016 End: 08-29-2016 Ambulatory ROBYN JO [facility] Start: 08-21-2016 End: 08-22-2016 Ambulatory [facility] Procedures Date Procedure Procedure Detail Performing Clinician Start: 11-03-2024 Fol[address] hormone measurement [address] Tu Davila MD Work Phone: Comment on above: FEMALE:Follicular: 1 .4 - 18.1 mIU/mLMidcycle: 3.4 - 33.4 mIU/mLLuteal: 1.5 - 9.1 mIU/mLPost Menopause: 23.0 - 116.3 mIU/mLMALE: 1.4 - 18.1 mIU/mL Start: 04-30-2023 Radiography of thora cic spine Dr. Tu Davila Work Phone: Start: 04-30-2023 X-ray of chest posteroanterior view Dr. Tu Davila Work Phone: Start: 11-27-2022 Screening mammography D gal Davila Work Phone: Start: 11-19-2021 Screening mammography D rNakia Davila Work Phone: Start: 09-30-2021 MRI arthrography of hip Dr. Tu Davila Work Phone: Start: 09-30-2021 MRI of joint of lowe r extremity Dr. Tu Davila Work Phone: Plan of Treatment Date Care Activity Detail Author Start: 03-22-2025 MG Breast - bilateral Screening [facility] Start: 11-03-2024 Estradiol (E2) [Mass /volume] in Serum or Plasma [facility] Start: 11-03-2024 Follicle stimulating hormone measurement [facility] Start: 11-03-2024 [facility] Start: 03-18-2023 Evaluation of diagno stic study results [facility] Start: 01-30-2023 Patient referral [facility] Work Phone: Start: 08-14-2021 Patient referral [facility] Work Phone: MG Breast - bilateral Screening [facility] MR Brain WO and W contrast IV [facility] Mullerian inhibiting substance [Mass/volume] in Serum or Plasma [facility] Patient referral [facility] Work Phone: Potassium [Moles/vol ume] in Serum or Plasma [facility] Tilt table test [facility] Immunizations Immunization Date Immunization Notes Care Provider Fa virtua [facility] 02-04-2021 Covid (Moderna) Dr. Neelima Davila MD Work Phone: [facility] 07-12-2020 Covid ([employer]) Dr. Neelima Davila MD Work Phone: [facility] 06-14-2020 Covid (ModernInOpen) Dr. Neelima Davila MD Work Phone: [facility] Payers Date Payer Category Payer Private Health Insurance [id number] 2024 Self-pay [id number] 2023 Private Health Insurance [id number] 1972 Unknown [id number] [id number]. [id number] Private Health Insurance [id number] Unknown [id number] 2.16.8 [id number] Unknown [id number] 2.16.8 [id number] Unknown [id number] 2.16.8 [id number] Unknown [id number] 2.16.8 [id number] Unknown [id number] 2.16.8 [id number] Unknown [id number] 2.16.8 [id number] Unknown [id number] 2.16.8 [id number] Unknown [id number] 2.16.8 [id number] Unknown [id number] 2.16.8 [id number] Social History Date Type Detail Facility Start: 08-14-2021 End: 04-30-2023 Tobacco smoking status NMIS Unknown if ever smoked [facility] Start: 06-18-2020 Rare [facility] Start: 06-18-2020 None [facility] Start: 06-18-2020 With Family [facility] Start: 1970 Sex Assigned At Female [facility] Start: 07-16-2017 Cigarettes [facility] Start: 04-30-2023 Tobacco smoking stat us NMIS Ex-smoker (finding) [facility] Tobacco smoking status [facility] Start: 08-06-2018 Sex Female (finding) [facility] Sex Female [facility] Clinical Notes 10-21-2024 to 10-28-2024 Note Date & Type Note Facility 10-28-2024 Hospital Discharg e instructions Patient Education 10/28/2024 19:46:58 After a Concussion After a Concussion Awaken to check alertness as often as the health care provider suggests. If you had a mild concussion (a head injury), watch closely for signs of problems during the first 48 hours after the injury. Follow the doctor s advice about recovering at home. Use the tips on this handout as a guide. Note: You should not be left alone after a concussion. If no adult can stay with the injured person, let the doctor know. Have someone call 911 or your emergency number if you can't fully wake up or have a seizures or convulsions. The first 48 hours Don t take medicine unless approved by your healthcare provider. Try placing a cold, damp cloth on your head to help relieve a headache. Ask the doctor before using any medicines. Don't drink alcohol or take sedatives or medicines that make you sleepy. Don't return to sports or any activity that could cause you to hit your head until all symptoms are gone and you have been cleared by your doctor. A second head injury before fully recovering from the first one can lead to serious brain injury. Don't do activities that need a lot of concentration or a lot of attention. This will allow your brain to rest and heal more quickly. Return to regular physical and mental activity as directed and approved by your healthcare provider. Tips about sleeping For the first day or two, it may be best not to sleep for long periods of time without being checked for alertness. Follow the doctor s instructions. ? Have someone wake you every ____ hours for the next ____ hours. He or she should ask you questions to check for alertness. ? OK to sleep through the night. When to call the healthcare provider If you notice any of the following, call the healthcare provider: Vomiting. Some vomiting is common, but tell the provider about any vomiting. Clear or bloody drainage from the nose or ear Constant drowsiness or difficulty in waking up Confusion or memory loss Blurred vision or any vision changes Inability to walk or talk normally Increased weakness or problems with coordination Constant, unrelieved headache that becomes more severe Changes in behavior or personality High-pitched crying in infants Signs of stroke such as paralysis of parts of the body Uncrontrolled movements suggesting a seizure [id number] [employer]. [address] [place] [address], [place] [address]. All rights reserved. This information is not intended as a substitute for professional medical care. Always follow your healthcare professional's instructions. 10/28/2024 19:45:50 Head Injury (Adult) Head Injury (Adult) You have a head injury. It does not appear serious at this time. But symptoms of a more serious problem, such as a mild brain injury (concussion) or bruising or bleeding in the brain, may appear later. For this reason, you or someone caring for you will need to watch for the symptoms listed below. Once you re home, also be sure to follow any care instructions you re given. Home care Watch for the following symptoms Seek emergency medical care if you have any of these symptoms over the next hours to days: Headache Nausea or vomiting Dizziness Sensitivity to light or noise Unusual sleepiness or grogginess Trouble falling asleep Personality changes Vision changes Memory loss Confusion Trouble walking or clumsiness Loss of consciousness (even for a short time) Inability to be awakened Stiff neck Weakness or numbness in any part of the body Seizures General care If you were prescribed medicines for pain, use them as directed. Note: Don t take other medicines for pain without talking to your provider first. To help reduce swelling and pain, apply a cold source to the injured area for up to 20 minutes at a time. Do this as often as directed. Use a cold pack or bag of ice wrapped in a thin towel. Never apply a cold source directly to the skin. If you have cuts or scrapes as a result of your head injury, care for them as directed. For the next 24 hours (or longer, if instructed): oDon t drink alcohol or use sedatives or other medicines that make you sleepy. oDon t drive or operate machinery. oDon t do anything strenuous, such as heavy lifting or straining. oLimit tasks that require concentration. This includes reading, using a smartphone or computer, watching TV, and playing video games. oDon t return to sports or other activities that could result in another head injury. Follow-up care Follow up with your healthcare provider, or as directed. If imaging tests were done, they will be reviewed by a doctor. You will be told the results and any new findings that may affect your care. When to seek medical advice Call your healthcare provider right away if any of these occur: Pain doesn t get better or worsens New or increased swelling or bruising Fever of 100.4 F (38 C) or higher, or as directed by your provider Increased redness, warmth, drainage, or bleeding from the injured area Fluid drainage or bleeding from the nose or ears Any depression or bony abnormality in the injured area Persistent confusion or lethargy Bruising behind the ears or bruising around the eyes [phone] [employer] [address] [place] [address]. All rights reserved. This information is not intended as a substitute for professional medical care. Always follow your healthcare professional's instructions. Follow Up Care 10/28/2024 18:26:11 With:TU DAVILA MD Address: [address] [place] [phone]- [phone] When:2-4 days With:TU DAVILA MD Address: [address] [place] [address] [phone] When:2-4 days [facility] 10-28-2024 Note Discharge Instructions Thank you for allowing [facility] to assist you with your healthcare needs. The following is important discharge information regarding your hospital visit. Diagnosis from Today's Visit Closed head injury MENDOZA (headache) Head injury What to Do Next Instructions from Your Care Team No qualifying data available. Post Acute Orders No qualifying data available. You Need to Schedule the Following Appointments Follow Up with TU DAVILA MD When:Within 2-4 days Where:[address] [place] [address] [phone] Follow Up with TU DAVILA MD When:Within 2-4 days Where:[address] [place] [phone] Allergies codeine Medications Please ask your primary doctor or pharmacist before taking any other medication not listed, including over the counter drugs, herbal medications, vitamins and or supplements as they may interact with your home medications. What How Much When Instructions Last Dose Unchanged buPROPion (BuPROPion (Eqv-Zyban Advantage Pack) 150 mg/ 12 hours oral tablet, extended release) Unchanged fludrocortisone (fludrocortisone 0.1 mg oral tablet) Unchanged linaclotide (Linzess) by mouth Once a day Unchanged metoprolol (Lopressor 25mg--USE metoprolol tartrate 25 mg oral tablet) Unchanged rivaroxaban (Xarelto 20 mg oral tablet) Unchanged topiramate (topiramate 100 mg oral tablet) Please take this list to your next doctor s visit. Bring all medications you take, including over the counter medications, herbals and other supplements with you to your doctor s visit. Patients and families are reminded to discard old lists and to update any records with all medication providers or retail pharmacies. Education Materials After a Concussion Awaken to check alertness as often as the health care provider suggests. If you had a mild concussion (a head injury), watch closely for signs of problems during the first 48 hours after the injury. Follow the doctor s advice about recovering at home. Use the tips on this handout as a guide. Note: You should not be left alone after a concussion. If no adult can stay with the injured person, let the doctor know. Have someone call 911 or your emergency number if you can't fully wake up or have a seizures or convulsions. The first 48 hours Don t take medicine unless approved by your healthcare provider. Try placing a cold, damp cloth on your head to help relieve a headache. Ask the doctor before using any medicines. Don't drink alcohol or take sedatives or medicines that make you sleepy. Don't return to sports or any activity that could cause you to hit your head until all symptoms are gone and you have been cleared by your doctor. A second head injury before fully recovering from the first one can lead to serious brain injury. Don't do activities that need a lot of concentration or a lot of attention. This will allow your brain to rest and heal more quickly. Return to regular physical and mental activity as directed and approved by your healthcare provider. Tips about sleeping For the first day or two, it may be best not to sleep for long periods of time without being checked for alertness. Follow the doctor s instructions. ? Have someone wake you every ____ hours for the next ____ hours. He or she should ask you questions to check for alertness. ? OK to sleep through the night. When to call the healthcare provider If you notice any of the following, call the healthcare provider: Vomiting. Some vomiting is common, but tell the provider about any vomiting. Clear or bloody drainage from the nose or ear Constant drowsiness or difficulty in waking up Confusion or memory loss Blurred vision or any vision changes Inability to walk or talk normally Increased weakness or problems with coordination Constant, unrelieved headache that becomes more severe Changes in behavior or personality High-pitched crying in infants Signs of stroke such as paralysis of parts of the body Uncrontrolled movements suggesting a seizure [phone] [employer] [address] [place] [address]. All rights reserved. This information is not intended as a substitute for professional medical care. Always follow your healthcare professional's instructions. Head Injury (Adult) You have a head injury. It does not appear serious at this time. But symptoms of a more serious problem, such as a mild brain injury (concussion) or bruising or bleeding in the brain, may appear later. For this reason, you or someone caring for you will need to watch for the symptoms listed below. Once you re home, also be sure to follow any care instructions you re given. Home care Watch for the following symptoms Seek emergency medical care if you have any of these symptoms over the next hours to days: Headache Nausea or vomiting Dizziness Sensitivity to light or noise Unusual sleepiness or grogginess Trouble falling asleep Personality changes Vision changes Memory loss Confusion Trouble walking or clumsiness Loss of consciousness (even for a short time) Inability to be awakened Stiff neck Weakness or numbness in any part of the body Seizures General care If you were prescribed medicines for pain, use them as directed. Note: Don t take other medicines for pain without talking to your provider first. To help reduce swelling and pain, apply a cold source to the injured area for up to 20 minutes at a time. Do this as often as directed. Use a cold pack or bag of ice wrapped in a thin towel. Never apply a cold source directly to the skin. If you have cuts or scrapes as a result of your head injury, care for them as directed. For the next 24 hours (or longer, if instructed): oDon t drink alcohol or use sedatives or other medicines that make you sleepy. oDon t drive or operate machinery. oDon t do anything strenuous, such as heavy lifting or straining. oLimit tasks that require concentration. This includes reading, using a smartphone or computer, watching TV, and playing video games. oDon t return to sports or other activities that could result in another head injury. Follow-up care Follow up with your healthcare provider, or as directed. If imaging tests were done, they will be reviewed by a doctor. You will be told the results and any new findings that may affect your care. When to seek medical advice Call your healthcare provider right away if any of these occur: Pain doesn t get better or worsens New or increased swelling or bruising Fever of 100.4 F (38 C) or higher, or as directed by your provider Increased redness, warmth, drainage, or bleeding from the injured area Fluid drainage or bleeding from the nose or ears Any depression or bony abnormality in the injured area Persistent confusion or lethargy Bruising behind the ears or bruising around the eyes [phone] [employer] [address] [place] [address]. All rights reserved. This information is not intended as a substitute for professional medical care. Always follow your healthcare professional's instructions. Additional Information VACCINATE! IT SAVES LIVES! Members of the community who have not yet received the COVID-19 vaccine and would like to receive it can visit one of [facility] vaccine clinics. There are many vaccine clinic locations within the [facility]. For locations and available times, please visit [email or web address] [email or web address] It is important to note that some COVID mobile vaccine clinics are held outdoors and may be canceled in rainy or stormy conditions. To learn more about pediatric vaccinations (ages 5-11), we invite you to visit the [facility] webpage. [email or web address]/p [email or web address] To learn more about the COVID-19 vaccine, we invite you to visit the CDC website for a list of frequently asked questions. https://www.cdc.gov/coronavirus/ 2019-ncov/vaccines/faq.html [facility] Patient Portal Access Instructions: Stay connected with your healthcare team and access your personal medical information anytime with the [facility] Patient Portal. If you would like a full copy of your medical records please contact the [facility] Medical Records Department Thursday through Thursday between 8a.m. and 4:30p.m. Please follow the directions below to access the portal: 1.Access the email account you provided upon registration to the hospital.2.Look for an invitation email from [facility].3.Open the email and access the invitation link: Accept Invitation to [facility]4.Fill in the required briceño to create your account. Sign into [email or web address] with your username and password that you created in the above steps to stay up to date. You can then view a summary of results, a summary of your visits, and the ability to download your summaries to your computer or send the information securely to a physician. Remember that your healthcare information is confidential, so carefully consider who you will allow to register on the [facility] Patient Portal for access to your information. You can also access the [facility] Patient Portal on the [employer]. Simply click on Health Records under Health Data and then click on the [employer] logo. HOW TO SAFELY DISPOSE OF PRESCRIPTION MEDICATIONS Please use one of the following methods to safely dispose of your unused medications. 1.Use a drug disposal kit: the drug disposal pouch allows you to safely discard your old and unused drugs. Ask your nurse to give you one when you are discharged.2.Visit a local take-back location: Many local pharmacies and police departments have programs that collect old and unwanted prescription drugs. Call your local pharmacy or go to http://[employer].OnShift/5Y9Ow7u to find one close to you.3.Make use of household items: Use cat litter or old coffee grounds to dispose medications if other options are not available. Mix your drugs with these household products, seal them in an airtight container and throw it into the garbage. Call [facility]: [phone] to be sure your drugs can be disposed of in this way. Some medicines may require a different approach.4.Never flush your medications down the toilet. IF YOU HAVE BEEN PRESCRIBED AN OPIOIDS FOR PAIN If you have been prescribed an opioid (such as hydrocodone, oxycodone or morphine), it is critical to understand the possible side effects and risks of opioid pain medications. Even when taken as directed, opioids can have several side effects including: Tolerance, meaning you might need to take more of a medication for the same pain relief. Nausea, vomiting and/or constipation. Sleepiness, dizziness, dry mouth, confusion, depression or itching. Physical dependence, meaning you have withdrawal symptoms when a medication is stopped ? this can develop within a few days. KNOW YOUR RESPONSIBILITIES It is important to know exactly how much and how often to take the opioid pain medications you are prescribed. Never take opioids in higher amounts or more often than prescribed. Do not combine opioids with alcohol or other drugs that cause drowsiness, such as benzodiazepines, also known as benzos, including diazepam and alprazolam, muscle relaxants or sleep aids. Never sell or share prescription opioids. This is illegal. Store opioids in a secure place and out of reach of others (including children, family, friends and visitors). The last page(s) of this document has been signed and retained as a CHART [employer] Patient Education Materials After a Concussion Head Injury (Adult) Medication Leaflets My discharge plan and instructions have been reviewed and explained to me and IBECCA CARRIE B understand my current condition and have read and understand these discharge instructions. I have received a written copy of the plan/instructions. If I have questions, I am aware that I should contact my doctor. 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 Automated exposure control, iterative reconstruction, and/or weight based adjustment of the mA/kV was utilized to reduce the radiation dose to as low as reasonably achievable.; CT of the face was performed without the administration of intravenous contrast. Multiplanar reformatted images are provided for review. Automated exposure control, iterative reconstruction, and/or weight based adjustment of the mA/kV was utilized to reduce the radiation dose to as low as reasonably achievable. COMPARISON: None. HISTORY: ORDERING SYSTEM PROVIDED HISTORY: Reason for Exam: Head trauma, coagulopathy ; Facial trauma, blunt; ORDERING SYSTEM PROVIDED HISTORY: Reason for Exam: Facial trauma, blunt FINDINGS: CT HEAD: BRAIN/VENTRICLES: There is no acute intracranial hemorrhage, mass effect or midline shift. No abnormal extra-axial fluid collection. The gonzalez-white differentiation is maintained without evidence of an acute infarct. There is no evidence of hydrocephalus. CT FACIAL BONES: FACIAL BONES: The maxilla, pterygoid plates and zygomatic arches are intact. The mandible is intact. The mandibular condyles are normally situated. The nasal bones and maxillary nasal processes are intact. ORBITS: The globes appear intact. The extraocular muscles, optic nerve sheath complexes and lacrimal glands appear unremarkable. No retrobulbar hematoma or mass is seen. The orbital victoria and rims are intact. SINUSES/MASTOIDS: Mucous retention cyst in right maxillary sinus, otherwise the paranasal sinuses and mastoid air cells are well aerated. No acute fracture is seen. IMPRESSION: No acute intracranial abnormality. No acute traumatic injury of the facial bones. I have personally reviewed the images of this examination and agree with the resident's findings and interpretation. Interpreted by: Simon Zhao Preliminary Report By: Valente Howell Electronically signed By Simon Zhao Dictated Date: 10/28/2024 7:36:59 PM Prelim Date: 10/28/2024 7:41:36 PM Sign Date: 10/28/2024 7:44:07 PM Ordering Provider: JOELEILEEN WALKER [facility]08-29-2025 Note* Exam Date Time Procedure Performing Provider Status 10/28/24 7:[address] Head or Brain w/o Contrast SIMON ZHAO MD; Auth (Verified) [id number] ORIGINAL EXAMINATION: CT OF THE HEAD WITHOUT CONTRAST; CT OF THE FACE WITHOUT CONTRAST 10/28/2024 7:22 pm; 10/28/2024 7:25 pm TECHNIQUE: CT of the head was performed without the administration of intravenous contrast. Automated exposure control, iterative reconstruction, and/or weight based adjustment of the mA/kV was utilized to reduce the radiation dose to as low as reasonably achievable.; CT of the face was performed without the administration of intravenous contrast. Multiplanar reformatted images are provided for review. Automated exposure control, iterative reconstruction, and/or weight based adjustment of the mA/kV was utilized to reduce the radiation dose to as low as reasonably achievable. COMPARISON: None. HISTORY: ORDERING SYSTEM PROVIDED HISTORY: Reason for Exam: Head trauma, coagulopathy ; Facial trauma, blunt; ORDERING SYSTEM PROVIDED HISTORY: Reason for Exam: Facial trauma, blunt FINDINGS: CT HEAD: BRAIN/VENTRICLES: There is no acute intracranial hemorrhage, mass effect or midline shift. No abnormal extra-axial fluid collection. The gonzalez-white differentiation is maintained without evidence of an acute infarct. There is no evidence of hydrocephalus. CT FACIAL BONES: FACIAL BONES: The maxilla, pterygoid plates and zygomatic arches are intact. The mandible is intact. The mandibular condyles are normally situated. The nasal bones and maxillary nasal processes are intact. ORBITS: The globes appear intact. The extraocular muscles, optic nerve sheath complexes and lacrimal glands appear unremarkable. No retrobulbar hematoma or mass is seen. The orbital victoria and rims are intact. SINUSES/MASTOIDS: Mucous retention cyst in right maxillary sinus, otherwise the paranasal sinuses and mastoid air cells are well aerated. No acute fracture is seen. IMPRESSION: No acute intracranial abnormality. No acute traumatic injury of the facial bones. I have personally reviewed the images of this examination and agree with the resident's findings and interpretation. Interpreted by: Simon Zhao Preliminary Report By: Valente Howell Electronically signed By Simon Zhao Dictated Date: 10/28/2024 7:36:59 PM Prelim Date: 10/28/2024 7:41:36 PM Sign Date: 10/28/2024 7:44:07 PM Ordering Provider: JOEL WALKER [facility]08-22-2025 Evaluation note* Diagnosis Onset Date Resolution Status Admit Date History of pulmonary embolus (PE) acute October 21 7:39am Menopausal symptoms acute Augus t 2024 7:39am Chronic constipation chronic Augu st 2024 7:39am Depression chronic October 21 025 7:39am Migraines chronic October 21 025 7:39am Postural orthostatic tachycardia syndrome chronic September 7:39am Menopausal symptoms acute Septe mb2024 8:22am Encounter for routine gynecological examination noneactive 2024 8:22am [facility] Work Phone: Evaluation + Plan note No data available for this section [facility] Evaluation note* Diagnosis Onset Date Resolution Status Skin lesion of face acute Migraines chronic [facility] Work Phone: Evaluation note* Diagnosis Onset Date Resolution Status Encounter for routine gynecological examination noneactive [facility] Work Phone: Evaluation note* Diagnosis Onset Date Resolution Status Chronic constipation chronic Dizziness chronic MDD (major depressive disorder) chronic Migraines chronic Right hip pain chronic [facility] Work Phone: Evaluation note* Diagnosis Onset Date Resolution Status MDD (major depressive disorder) chronic Migraines chronic Tachycardia chronic Back pain acute Migraine headache without aura acute Postural orthostatic tachycardia syndrome acute Dizziness chronic [facility] Work Phone: Evaluation noteNo assessment information available [facility] Discharge instructionsAmbulatory Orders* Neurology Location: None Selected [facility] Work Phone: Reason for referral (narrative)No reason for referral information availableU[facility] Work [facility]: Summary Purpose Family History Relationship Condition Age at Onset Recorded Date/T osvaldo mother Hypertension Unknown father Hypertension Unknown grandfather Myocardial infarction Unknown Cardiac disease Unknown grandmother Malignant neoplasm of breast Unknown Diabetes mellitus Unknown Alzheimer's disease Unknown aunt Malignant neoplasm of breast Unknown Advance Directives Advance Directive Response Recorded Date/ Time Living Will No March 16 6:19pm Power of Lard Maker No March 16, 2021 6:19pm Advance Directive Response Recorded Date/ Time Living Will No March 16 5:19pm Power of Lard Maker No March 16, 2021 5:19pm Advance Directive Response Recorded Date/ Time Living Will No April 29, 2 024 12:56pm Power of Lard Maker No April 29, 2023 12:56pm Chief Complaint and Reason for Visit Chief Complaint 6 M FU RIGHT HIP PAIN Reason for Visit Skin lesion of face Migraines Chief Complaint 6 M FU RIGHT HIP PAIN SCREENING Reason for Visit Skin lesion of face Migraines Chief Complaint RIGHT HIP PAIN SCREENING 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) Reason for Visit Encounter for routin e gynecological examination Chief Complaint SCREENING YEARLY Reason for Visit Chronic constipation Dizziness MDD (major depressive disorder) Migraines Right hip pain Chief Complaint MED CHECK BACK PAIN MIDDLE/LOWER, NOW IN SHOULDER XRAY DIZZINESS AND GIDDINESS EORDER Reason for Visit MDD (major depressiv e disorder) Migraines Tachycardia Back pain Migraine headache without aura Postural orthostatic tachycardia syndrome Dizziness Chief Complaint Admit Date 6 M FU October 21, 2024 7: 39am Chief Complaint Admit Date 6 M FU October 21, 2024 7: 39am 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) November 03, 2024 8:22am Reason for Visit Admit Date History of pulmonary embolus (PE) October 21, 2024 7:39am Menopausal symptoms October 21, 2024 7: 39am Chronic constipation October 21, 2024 7 :39am Depression October 21, 2024 7: 39am Migraines October 21, 2024 7: 39am Postural orthostatic tachycardia syndrom e October 21, 2024 7:39am Menopausal symptoms November 03, 2024 8:22am Encounter for routine gynecological exam ination November 03, 2024 8:22am Chief Complaint Admit Date 6 M FU October 21, 2024 7: 39am 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) November 03, 2024 8:22am INT LAB ORDER November 14, 2024 12:41pm Additional Source Comments INFORMATION SOURCE (unrecogn ized section and content) DATE CREATED AUTHOR 08/19/2017 [facility] DATE CREATED AUTHOR AUTHOR'S ORGANIZ ATION 08/26/2017 [facility] DATE CREATED AUTHOR AUTHOR'S ORGANIZ ATION 11/05/2024 [facility] DATE CREATED AUTHOR AUTHOR'S ORGANIZ ATION 11/23/2024 [facility] Goals (unrecognized section and content) Goals may be documented in a n alternate sectionGoals may be documented in an alternate sectionGoals may be documented in an alternate sectionGoals may be documented in an alternate sectionGoals may be documented in an alternate sectionGoals may be documented in an alternate section No data available for this sectionGoals may be documented in an alternate sectionGoals may be documented in an alternate sectionGoals may be documented in an alternate section Care Teams (unrecognized sec tion and content) Team Status: Active Member Role Status Dates Dr. Tu Davila MD Family Provider Active Dr. Tu Davila MD Primary Care Provider Active Team Status: Inactive Member Role Status Dates Dr. Tu Davila MD Primary Care P rovinani, Attending Provider, Referring Provider Active Team Status: Inactive Member Role Status Dates Dr. Tu Davila MD Primary Care Provider, Atten ding Provider Active Team Status: Inactive Member Role Status Dates Dr. Tu Davila MD Primary Care Provider, Refer ring Provider Active Dr. Fabrice Frye MD Attending Provider Active Team Status: Inactive Member Role Status Dates Dr. Tu Davila MD Primary Care Provider, Refer ring Provider Active Tommy MARRERO PA Attending Provider Active Team Status: Inactive Member Role Status Dates Dr. Tu Davila MD Primary Care Provider Active Dr. Linwood Serrano MD Attending Provider Active Team Status: Inactive Member Role Status Dates Dr. Tu Davila MD Primary Care Provider Active Dr. Fabrice Frye MD Attending Provider, Referring Provider Active Team Status: Active Member Role/Relationship Status Dates Dr. Tu Davila MD Primary Care Provider Active Team Status: Inactive Member Role/Relationship Status Dates Dr. Tu Davila MD Primary Care Provider Active Start: October 21, 2024 End: October 21, 2024 Dr. Tu Davila MD Attending Provider Active Start: October 21, 2024 End: October 21, 2024 Dr. Tu Davila MD Referring Provider Active Start: October 21, 2024 End: October 21, 2024 Team Status: Inactive Member Role/Relationship Status Dates Dr. Tu Davila MD Primary Care Provider Active Start: November 03, 2024 End: November 03, 2024 Dr. Tu Davila MD Referring Provider Active Start: November 03, 2024 End: November 03, 2024 ARMAND Maynard Attending Provider Active Start: November 03, 2024 End: November 03, 2024 Team Status: Active Member Role/Relationship Status Dates Dr. Tu Davila MD Primary Care Provider Active Start: November 03, 2024 ARMAND Maynard Attending Provider Active Start: November 03, 2024 ARMAND Maynard Referring Provider Active Start: November 03, 2024 Team Status: Inactive Member Role/Relationship Status Dates Dr. Tu Davila MD Primary Care Provider Active Start: November 03, 2024 End: November 03, 2024 ARMAND Maynard Attending Provider Active Start: November 03, 2024 End: November 03, 2024 ARMAND Maynard Referring Provider Active Start: November 03, 2024 End: November 03, 2024 Team Status: Active Member Role/Relationship Status Dates Dr. Tu Davila MD Primary care physician Activ e Team Status: Inactive Member Role/Relationship Status Dates Dr. Tu Davila MD Primary care physician Activ e Start: October 21, 2024 End: October 21, 2024 Dr. Tu Davila MD Attending physician Active Start: October 21, 2024 End: October 21, 2024 Dr. Tu Davila MD Referring Provider Active Start: October 21, 2024 End: October 21, 2024 Team Status: Inactive Member Role/Relationship Status Dates Dr. Tu Davila MD Primary care physician Activ e Start: November 03, 2024 End: November 03, 2024 Dr. Tu Davila MD Referring Provider Active Start: November 03, 2024 End: November 03, 2024 ARMAND Maynard Attending physician Active Start: November 03, 2024 End: November 03, 2024 Team Status: Inactive Member Role/Relationship Status Dates Dr. Tu Davila MD Primary care physician Activ e Start: November 03, 2024 End: November 03, 2024 ARMAND Maynard Attending physician Active Start: November 03, 2024 End: November 03, 2024 Olivia Barkman , PATIENT OFFICE REP-C Referring Provider Active Start: November 03, 2024 End: November 03, 2024 Team Status: Inactive Member Role/Relationship Status Dates Dr. Tu Davila MD Primary care physician Activ e Start: November 14, 2024 End: November 14, 2024 ARAMND Maynard Attending physician Active Start: November 14, 2024 End: November 14, 2024 ARMAND Maynard Referring Provider Active Start: November 14, 2024 End: November 14, 2024 FOR RECORDS PERTAINING TO PATIENTS WHO ARE OR HAVE BEEN ENROLLED IN A CHEMICAL DEPENDENCY/SUBSTANCEABUSE PROGRAM, SOME INFORMATION MAY BE OMITTED. This clinical summary was aggregated from multiple sources. Caution should be exercised in using it in the provision of clinical care. This summary normalizes information from multiple sources, and as a consequence, information in this document may materially change the coding, format and clinical context of patient data. In addition, data may be omitted in some cases. CLINICAL DECISIONS SHOULD BE BASED ON THE PRIMARY CLINICAL RECORDS. [facility] [employer] provides no warranty or guarantee of the accuracy or completeness of information in this document.
== END | disposition home or self-care (01) ==
LOC: RAD 11:30
PROVIDERS: PCP Internal Medicine; Referring Provider Physician Assistant; Visit Provider Physician Assistant
DX: M54.50 Low back pain, unspecified (principal)
CPT/HCPCS: 72100